=== PATIENT | female | born 1970 | race Caucasian/White ===

== ENCOUNTER 2018-05-27 06:29 | Outpatient (CLI) | payer MEDICAID ==
[~2018-05-27] VITALS: Ht 162.6 cm; Wt 121.1 kg
[2018-05-27] MEDS ORDERED: FLUT9.9S NS (14:11)
[2018-05-27] MEDS ORDERED: ESCI20TA PO (14:11)
[2018-05-27] MEDS ORDERED: METF-397 PO (14:11)
[2018-05-27] MEDS ORDERED: MULT-178 PO (14:11)
[2018-05-27] MEDS ORDERED: QUET100T PO (14:11)
[2018-05-27] MEDS ORDERED: RANI150T46 PO (14:11)
[2018-05-27] MEDS ORDERED: OMEP40CA36 PO (14:11)
[2018-05-27] MEDS ORDERED: BUDE10.2 IH (14:14)
== END 2018-05-27 14:25 | disposition home or self-care (01) ==
LOC: PREOP 06:29
PROVIDERS: ATTEND Orthopaedic Surgery
DX: Z01.818 Encounter for other preprocedural examination (principal)

== ENCOUNTER 2018-05-29 07:38 | Day surgery (SDC) | payer MEDICAID ==
[~2018-05-29] VITALS: Ht 162.6 cm; Wt 120.8 kg
[~2018-05-29 07:38] MED LIST: BUDE10.2 IH; ESCI20TA PO; FLUT9.9S NS; METF-397 PO; MULT-178 PO; OMEP40CA36 PO; QUET100T PO; RANI150T46 PO
[2018-05-29] MEDS ORDERED: BUPIVACAINE 0.25% 30 ML (SENSORCAINE) VIAL ONE ×2 (07:51→08:52)
[2018-05-29] MEDS ORDERED: morphine PF (DURAMORPH) 10 MG/10 ML AMP ONE ×2 (07:51→08:52)
[2018-05-29] MEDS ORDERED: ceFAZolin INJECTION 1,000 MG in WATER (STERILE) FOR INJECTION 10 ML IV ONE (08:00)
[2018-05-29] MEDS: LACTATED RINGERS 1,000 ML IV PRN ×2 (08:09→10:05)
[2018-05-29 08:15] VITALS: BP 132/84
[2018-05-29] MEDS ORDERED: FAMOTIDINE 20MG/2ML IV (PEPCID) ONE (08:17)
[2018-05-29] MEDS ORDERED: ONDANSETRON 4 MG/2 ML (SDV) Z0FRAN ONE (08:27)
[2018-05-29] MEDS ORDERED: proPOfol 200 MG/20 ML (DIPRIVAN) VIAL IV ONE ×2 (08:27→10:33)
[2018-05-29] MEDS ORDERED: LIDOCAINE PF 2% 5 ML (XYLOCAINE) VIAL ONE (08:27)
[2018-05-29] MEDS ORDERED: SEVOFLURANE (ULTANE) 15 ML INHAL SOLN ONE (08:27)
[2018-05-29] MEDS ORDERED: fentaNYL INJECTION 100 MCG/2 ML AMP ONE ×2 (08:28→09:52)
[2018-05-29] MEDS ORDERED: MIDAZOLAM 2 MG/2 ML (VERSED) VIAL ONE (08:28)
[2018-05-29] MEDS ORDERED: FAMOTIDINE 20MG/2ML IV (PEPCID) IV ONE (08:30)
--- OUTSIDE RECORDS SUMMARY | 2018-05-29 08:34 | XMS REPORT ---
Author Author Anuradha Orellana Organization [facility] Address [address] [place], [place] [id number] Care Team Providers Care Customs Director Name Role Phone Anuradha Orellana PCP Anuradha Orellana PreferredProvider Allergies and Adverse Reactions Name Reaction Notes Hydrocodone Compound Plan of Treatment Planned Activity Comments Planned Date Planned Time Plan/Goal left shoulder pain 01/31/2018 8:50 AM LEFT KNEE PAIN 04/15/2018 8:11 AM Pulse oximetry 05/14/2018 12:00 AM Pulse oximetry 05/14/2018 12:00 AM Pulse oximetry 05/14/2018 12:00 AM PFT 05/15/2018 12:00 AM Medications Active Name Start Date Estimated Completion Date SIG Comments Lexapro 20 mg oral tablet take 2 tablets by oral route daily multivitamin with iron oral tablet take 1 tablet by oral route daily escitalopram oxalate 20 mg oral tablet 02/11/2018 ... TAKE 1 TABLET BY MOUTH DAILY ... diclofenac sodium 75 mg oral tablet,delayed release (DR/EC) 03/22/2018 take 1 tablet (75 mg) by oral route 2 times per day for 30 days metformin 500 mg oral tablet extended release 24hr 04/17/2018 07/16/2018 take 1 tablet (500 mg) by oral route once daily with the evening meal for 30 days omeprazole 40 mg oral capsule,delayed release(DR/EC) 05/02/2018 ... TAKE 1 CAPSULE BY MOUTH DAILY ... 90 ranitidine HCl 150 mg oral tablet 05/02/2018 ...TAKE 1 TABLET BY MOUTH ONCE DAILY AT BEDTIME .. Seroquel 100 mg oral tablet 05/02/2018 1 tablet at hs ibuprofen 800 mg oral tablet take 1 tablet (800 mg) by oral route 3 times per day with food Symbicort 160-4.5 mcg/actuation inhalation HFA aerosol inhaler 05/07/2018 3/14 /2019 inhale 1 puffs by inhalation route 4 times per day and then rinse throat Name Start Date Expiration Date SIG Comments Zithromax 250 mg oral tablet 11/28/2017 12/03/2017 take 2 tablets (500 mg) by oral route once daily for 1 day then 1 tablet (250 mg) by oral route once daily for 4 days Zithromax Z-Mendoza 250 mg oral tablet 05/07/2018 05/12/2018 take 2 tablets (500 mg) by oral route once daily for 1 day then 1 tablet (250 mg) by oral route once daily for 4 days Discontinued Name Start Date Discontinued Date SIG Comments Seroquel 200 mg oral tablet 03/07/2018 take 1 tablet by oral route once a day (at bedtime) ranitidine HCl 150 mg oral capsule 12/27/2017 01/17/2018 take 1 capsule (150 mg) by oral route once daily at bedtime for 30 days Belsomra 10 mg oral tablet 03/07/2018 03/25/2018 take 1 tablet (10 mg) by oral route once per night within 30 minutes of bedtime. Take only if at least 7 hrs of bedtime remain before planned time of waking. for 30 days insurance won' t cover it Problem List Description Status Onset Gastroesophageal reflux disease without esophagitis Active 02/04/2018 Depression Active 02/04/2018 Vital Signs Date Time BP-Sys(mm[Hg] BP-Alison(mm[Hg]) HR(bpm) RR(rpm) Temp WT HT HC BMI BSA BMI Percentile O2 Sat(%) 05/14/2018 7:56:00 AM 128 mmHg 84 mmHg 88 bpm 18 rpm 98.1 F 271.25 lbs 64 in 46.5595 kg/m 2.3571 m 96 % 05/07/2018 1:26:00 PM 136 mmHg 84 mmHg 86 bpm 18 rpm 98.2 F 274.25 lbs 64 in 47.07 kg/m2 2.37 m2 92 % 04/08/2018 9:48:00 AM 118 mmHg 80 mmHg 78 bpm 18 rpm 98.1 F 279.125 lbs 64 in 47.9112 kg/m 2.3911 m 95 % 03/27/2018 9:22:00 AM 128 mmHg 72 mmHg 84 bpm 18 rpm 98.4 F 280 lbs 64 in 48.06 kg/m2 2.39 m2 95 % 03/25/2018 3:50:00 PM 124 mmHg 78 mmHg 80 bpm 18 rpm 98.2 F 279.5 lbs 64 in 47.9756 kg/m 2.3927 m 98 % 03/07/2018 9:16:00 AM 132 mmHg 80 mmHg 78 bpm 18 rpm 98.2 F 282.25 lbs 64 in 48.45 kg/m2 2.40 m2 98 % 01/24/2018 8:51:00 AM 122 mmHg 74 mmHg 88 bpm 18 rpm 98.2 F 275 lbs 64 in 47.2032 kg/m 2.3733 m 96 % 01/17/2018 2:05:00 PM 132 mmHg 84 mmHg 82 bpm 18 rpm 98.2 F 276.25 lbs 64 in 47.42 kg/m2 2.38 m2 98 % 11/28/2017 2:14:00 PM 132 mmHg 76 mmHg 86 bpm 18 rpm 98.7 F 269 lbs 64 in 46.1733 kg/m 2.3473 m 98 % Social History Name Description Comments Tobacco Current every day smoker cigerettes Alcohol Never Caffeine 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 every day 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 History of Procedures Date Ordered Description Order Status 11/28/2017 12:00 AM THER/PROPH/DIAG INJ SC/IM Reviewed 11/28/2017 12:00 AM Decadron 4mg Injection Reviewed 11/28/2017 12:00 AM Depo-Medrol 40mg Injection Reviewed 04/08/2018 12:00 AM COMPLETE CBC W/AUTO DIFF WBC Reviewed 04/08/2018 12:00 AM COMPREHEN METABOLIC PANEL Reviewed 04/08/2018 12:00 AM GLYCOSYLATED HEMOGLOBIN TEST Reviewed 04/08/2018 12:00 AM VITAMIN B-12 Reviewed 04/08/2018 12:00 AM ASSAY THYROID STIM HORMONE Reviewed 04/08/2018 12:00 AM ASSAY OF FREE THYROXINE Reviewed 04/08/2018 12:00 AM ASSAY OF IRON Reviewed 04/08/2018 12:00 AM JC-HADLEY ANTIBODY Reviewed 04/08/2018 12:00 AM JC-HADLEY NUCLEAR ANTIGEN Reviewed 04/08/2018 12:00 AM JC-HADLEY CAPSID VCA Reviewed 04/08/2018 12:00 AM ROUTINE VENIPUNCTURE Reviewed Results Summary Date and Description Results 03/07/2018 9:59 AM Falls in last 6 months? No Unsteady or worry about falling ? No Fall Risk Assessment Not At Risk During the past month, have you been feeling depressed? Yes During the past month, have you lost interest in usual activity? Yes 03/26/2018 3:59 PM Falls in last 6 months? No Unsteady or worry about falling? No Fall Risk Assessment Not At Risk During the past month, have you been feeling depressed? Yes During the past month, have you lost interest in usual activity? Yes 03/27/2018 9:23 AM Falls in last 6 months? No Unsteady or worry about falling? No Fall Risk Assessment Not At Risk During the past month, have you been feeling depressed? Yes During the past month, have you lost interest in usual activity? Yes 04/08/2018 10:15 AM WBC 13.6 RBC 5.20 HGB 14.6 HCT 45.9 MCV 88 MCH 28.1 MCHC 31.8 RDW SD 58 RDW CV 17.8 MPV 10.6 PLT 335 NRBC# 0.00 NRBC% 0.0 %NEUT 64.2 % LYMP 27.7 %MONO 5.2 %EOS 1.6 %BASO 0.6 #NEUT 8.73 #LYMP 3.77 #MONO 0.71 #EOS 0.22 #BASO 0.08 MANUAL DIFF NOT IND GLUCOSE 148 SODIUM 136 POTASSIUM 4.7 CHLORIDE 100 CO2 27 BUN 14 CREATININE 0.7 SGOT/AST 20 SGPT/ALT 27 ALK PHOS 92 TOTAL PROTEIN 7.1 ALBUMIN 3.9 TOTAL BILI 0.2 CALCIUM 9.4 AGE 47 GFR NonAA 90 GFR AA 109 eGFR 90 eGFR AA* >60 HGB A1C 6.90 %Est Avg Glucose 151.3 TSH 2.12 VITAMIN B12 388 FREE T4 1.07 IRON TOTAL 72 EBV Ab VCA, IgM <36.0 EBV Early Antigen Ab, IgG 17.6 EBV Ab VCA, IgG >600.0 EBV Nuclear Antigen Ab,IgG 193.0 Interpretation: COMMENT 04/08/2018 12:10 PM Falls in last 6 months? No Unsteady or worry about falling ? No Fall Risk Assessment Not At Risk During the past month, have you been feeling depressed? Yes During the past month, have you lost interest in usual activity? No 05/19/2018 9:39 AM Falls in last 6 months? No Unsteady or worry about falling? No Fall Risk Assessment Not At Risk During the past month, have you been feeling depressed? Yes During the past month, have you lost interest in usual activity? No 05/19/2018 7:44 PM Falls in last 6 months? No Unsteady or worry about falling? No Fall Risk Assessment Not At Risk During the past month, have you been feeling depressed? Yes During the past month, have you lost interest in usual activity? No History Of Immunizations Not available. History of Past Illness Name Date of Onset Comments ADHD Anemia Anxiety and depression arthritis Insomnia Numbness and Tingling HEADACHES Dizziness Gastroesophageal reflux disease without esophagitis 02/04/2018 Depression 02/04/2018 Acute bronchitis, unspecified organism Nov 28 2017 2:18PM Purulent rhinitis Nov 28 2017 2:18PM Pain in left shoulder Jan 17 2018 2:07PM Other chronic pain Jan 17 2018 2:07PM Primary osteoarthritis of left knee Jan 24 2018 8:52AM Knee effusion, left Jan 24 2018 8:52AM Heel spur, right Jan 24 2018 8:52AM Gastroesophageal reflux disease without esophagitis Jan 17 2018 2:07PM Depression Jan 17 2018 2:07PM Primary osteoarthritis of left knee Mar 07 2018 9:18AM Insomnia Mar 07 2018 9:18AM Knee pain, left anterior Mar 07 2018 9:18AM Depression Mar 07 2018 9:18AM Gastroesophageal reflux disease without esophagitis Mar 07 2018 9:18AM Knee effusion, left Mar 25 2018 3:51PM Depression Mar 25 2018 3:51PM Gastroesophageal reflux disease without esophagitis Mar 25 2018 3:51PM Depression Mar 27 2018 9:23AM Gastroesophageal reflux disease without esophagitis Mar 27 2018 9:23AM Insomnia Mar 27 2018 9:23AM Knee effusion, left Mar 27 2018 9:23AM Anemia, unspecified type Apr 08 2018 9:53AM Other fatigue Apr 08 2018 9:53AM Morbid (severe) obesity due to excess calories Apr 08 2018 9:53AM Body mass index (BMI) 45.0-49.9, adult Apr 08 2018 9:53AM Primary osteoarthritis of left knee Apr 08 2018 9:53AM Depression Apr 08 2018 9:53AM Gastroesophageal reflux disease without esophagitis Apr 08 2018 9:53AM Hyperglycemia Apr 08 2018 9:53AM Family history of diabetes mellitus (DM) Apr 08 2018 9:53AM Primary osteoarthritis of left knee May 14 2018 7:57AM Shortness Of Breath May 14 2018 7:57AM Hypoxia May 14 2018 7:57AM Tobacco abuse disorder May 14 2018 7:57AM Depression May 14 2018 7:57AM Gastroesophageal reflux disease without esophagitis May 14 2018 7:57AM Hypoxia May 15 2018 12:41PM Tobacco abuse May 15 2018 12:41PM Allergic asthma May 07 2018 1:27PM Purulent rhinitis May 07 2018 1:27PM Primary osteoarthritis of left knee May 07 2018 1:27PM Payers Insurance Name Company Name Plan Name Plan Number Policy Number Policy Group Number Start Date Aetna Better Health - [facility] Aetna Better [facility] - [facility] [id number] N/A [employer] - [facility] - [place] State Plan [employer] - [facility] [place] State Plan [id number] N/A History of Encounters Visit Date Visit Type Provider 05/14/2018 Office visit 05/14/2018 Office visit Anuradha Orellana DIRECT CARE STAFFER 05/07/2018 Office visit Anuradha Orellana DIRECT CARE STAFFER 04/08/2018 Office visit Anuradha Orellana DIRECT CARE STAFFER 03/27/2018 Office visit Anuradha Orellana DIRECT CARE STAFFER 03/25/2018 Office visit Anuradha Orellana DIRECT CARE STAFFER 03/07/2018 Office visit 03/07/2018 Office visit Anuradha Orellana DIRECT CARE STAFFER 01/24/2018 Office visit Anuradha Orellana DIRECT CARE STAFFER 01/17/2018 Office visit Anuradha Orellana DIRECT CARE STAFFER 11/28/2017 Office visit Anuradha Orellana DIRECT CARE STAFFER
--- OUTSIDE RECORDS SUMMARY | 2018-05-29 08:34 | XMS REPORT ---
Author Author Anuradha Orellana Organization [facility] Address [address] [place], [place] [id number] Care Team Providers Care Bakery Machine Mechanic Supervisor Name Role Phone Anuradha Orellana PCP Anuradha Orellana PreferredProvider Allergies and Adverse Reactions Name Reaction Notes Hydrocodone Compound Plan of Treatment Planned Activity Comments Planned Date Planned Time Plan/Goal left shoulder pain 01/31/2018 8:50 AM LEFT KNEE PAIN 04/15/2018 8:11 AM Pulse oximetry 05/14/2018 12:00 AM Pulse oximetry 05/14/2018 12:00 AM Pulse oximetry 05/14/2018 12:00 AM Medications Active Name Start Date [...] Symbicort 160-4.5 mcg/actuation inhalation HFA aerosol inhaler 05/07/201806/06 inhale 1 puffs by inhalation route 4 [...] Reviewed 04/08/2018 12:00 AM ROUTINE VENIPUNCTURE Reviewed 05/15/2018 12:00 AM BREATHING CAPACITY TEST Reviewed Results Summary Date and Description Results [...] Number Start Date Aetna Better Health - [facility] Aetna Better [facility] - [facility] [id number] N/A [employer] - [facility] - [place] State Plan [employer] - [facility] [place] State Plan [id number] N/A History of Encounters Visit Date Visit Type Provider 05/14/2018 Office visit 05/14/2018 Office visit Anuradha Orellana OPTICAL LABORATORY MANAGER 05/07/2018 Office visit Anuradha Orellana OPTICAL LABORATORY MANAGER 04/08/2018 Office visit Anuradha Orellana OPTICAL LABORATORY MANAGER 03/27/2018 Office visit Anuradha Orellana OPTICAL LABORATORY MANAGER 03/25/2018 Office visit Anuradha Orellana OPTICAL LABORATORY MANAGER 03/07/2018 Office visit 03/07/2018 Office visit Anuradha Orellana OPTICAL LABORATORY MANAGER 01/24/2018 Office visit Anuradha Orellana OPTICAL LABORATORY MANAGER 01/17/2018 Office visit Anuradha Orellana OPTICAL LABORATORY MANAGER 11/28/2017 Office visit Anuradha Orellana OPTICAL LABORATORY MANAGER
--- OUTSIDE RECORDS SUMMARY | 2018-05-29 08:35 | XMS REPORT ---
Author Author Anuradha Orellana Organization [facility] Address [address] [place], [place] [id number] Care Team Providers Care Cdl Company Driver Name Role Phone Anuradha Orellana PCP Anuradha Orellana PreferredProvider Allergies and Adverse Reactions Name Reaction Notes Hydrocodone Compound Plan of Treatment Planned Activity Comments Planned Date Planned Time Plan/Goal left shoulder pain 01/31/2018 8:50 AM LEFT KNEE PAIN 04/15/2018 8:11 AM Medications Active Name Start Date Estimated Completion Date SIG Comments Lexapro 20 mg oral tablet take 2 tablets by oral route daily omeprazole 40 mg oral capsule,delayed release(DR/EC) take 1 capsule (40 mg) by oral route once daily before a meal multivitamin with iron oral tablet take 1 tablet by oral route daily ranitidine HCl 150 mg oral tablet 01/14/2018 ...TAKE 1 TABLET BY MOUTH ONCE DAILY AT BEDTIME .. escitalopram oxalate 20 mg oral tablet 02/11/2018 ... TAKE 1 TABLET BY MOUTH DAILY ... diclofenac sodium 75 mg oral tablet,delayed release (DR/EC) 03/22/2018 take 1 tablet (75 mg) by oral route 2 times per day for 30 days Seroquel 100 mg oral tablet 04/15/2018 05/15/2018 1 tablet at hs metformin 500 mg oral tablet extended release 24hr 04/17/2018 07/16/2018 take 1 tablet (500 mg) by oral route once daily with the evening meal for 30 days Name Start Date Expiration Date SIG Comments [...] HC BMI BSA BMI Percentile O2 Sat(%) 04/08/2018 9:48:00 AM 118 mmHg 80 mmHg [...] eGFR 90 eGFR AA* >60 HGB A1C 6.9 Est Avg Glucose 151.3 TSH 2.12 VITAMIN B12 [...] diabetes mellitus (DM) Apr 08 2018 9:53AM Payers Insurance Name Company Name Plan Name Plan Number Policy Number Policy Group Number [facility] Date [facility] [id number] N/A [facility] [place] [facility] [place] [id number] N/A History of Encounters Visit Date Visit Type Provider 04/08/2018 Office visit Anuradha Orellana APRN 03/27/2018 Office visit Anuradha Orellana AND RESCUE FIRE FIGHTER CRASH FIRE 03/25/2018 Office visit Anuradha Orellana AND RESCUE FIRE FIGHTER CRASH FIRE 03/07/2018 Office visit 03/07/2018 Office visit Anuradha Orellana AND RESCUE FIRE FIGHTER CRASH FIRE 01/24/2018 Office visit Anuradha Orellana APRN 01/17/2018 Office visit Anuradha Orellana AND RESCUE FIRE FIGHTER CRASH FIRE 11/28/2017 Office visit Anuradha Orellana AND RESCUE FIRE FIGHTER CRASH FIRE
--- OUTSIDE RECORDS SUMMARY | 2018-05-29 08:35 | XMS REPORT ---
Author Author Anuradha Orellana Organization [facility] Address [address] [place], [place] [address] Care Team Providers Care Policyholder Information Clerk Name Role Phone Anuradha Orellana PCP Anuradha [...] Number Start Date Aetna Better Health - [facility] A[employer]na Better Health - [facility] [id number] N/A [employer] - [facility] - [place] State [place] [employer] - [facility] [place] State [place] [id number] N/A History of Encounters Visit Date Visit Type Provider 05/14/2018 Office visit 05/14/2018 Office visit Anuradha Orellana CIVIL GEOTECHNICAL ENGINEER 05/07/2018 Office visit Anuradha Orellana CIVIL GEOTECHNICAL ENGINEER 04/08/2018 Office visit Anuradha Orellana CIVIL GEOTECHNICAL ENGINEER 03/27/2018 Office visit Anuradha Orellana CIVIL GEOTECHNICAL ENGINEER 03/25/2018 Office visit Anuradha Orellana CIVIL GEOTECHNICAL ENGINEER 03/07/2018 Office visit 03/07/2018 Office visit Anuradha Orellana CIVIL GEOTECHNICAL ENGINEER 01/24/2018 Office visit Anuradha Orellana CIVIL GEOTECHNICAL ENGINEER 01/17/2018 Office visit Anuradha Orellana CIVIL GEOTECHNICAL ENGINEER 11/28/2017 Office visit Anuradha Orellana CIVIL GEOTECHNICAL ENGINEER
--- OUTSIDE RECORDS SUMMARY | 2018-05-29 08:35 | XMS REPORT ---
Author Author Anuradha Orellana Organization [facility] Address [address] [place], [place] [address] Care Team Providers Care Student Services Director Name Role Phone Anuradha Orellana PCP Anuradha Orellana PreferredProvider Allergies and Adverse Reactions Name Reaction Notes Hydrocodone Compound Plan of Treatment Planned Activity Comments Planned Date Planned Time Plan/Goal left shoulder pain 01/31/2018 8:50 AM LEFT KNEE PAIN 04/15/2018 8:11 AM PFT 05/15/2018 12:00 AM Pulse oximetry 05/14/2018 12:00 AM [...] Number Start Date Aetna Better Health - [facility] Aetna Better [facility] - [facility] [id number] N/A [employer] - [facility] - [place] State [place] [employer] - [facility] [place] State Plan [id number] N/A History of Encounters Visit Date Visit Type Provider 05/14/2018 Office visit 05/14/2018 Office visit Anuradha Orellana SALES ENABLEMENT CONSULTANT 05/07/2018 Office visit Anuradha Orellana SALES ENABLEMENT CONSULTANT 04/08/2018 Office visit Anuradha Orellana SALES ENABLEMENT CONSULTANT 03/27/2018 Office visit Anuradha Orellana SALES ENABLEMENT CONSULTANT 03/25/2018 Office visit Anuradha Orellana SALES ENABLEMENT CONSULTANT 03/07/2018 Office visit 03/07/2018 Office visit Anuradha Orellana SALES ENABLEMENT CONSULTANT 01/24/2018 Office visit Anuradha Orellana SALES ENABLEMENT CONSULTANT 01/17/2018 Office visit Anuradha Orellana SALES ENABLEMENT CONSULTANT 11/28/2017 Office visit Anuradha Orellana SALES ENABLEMENT CONSULTANT
--- OUTSIDE RECORDS SUMMARY | 2018-05-29 08:36 | XMS REPORT ---
Author Author Anuradha Orellana Organization [facility] Address [address] [place], [place] [id number] Care Team Providers Care Corporate Sales Trainer Name Role Phone Anuradha Orellana PCP Anuradha Orellana PreferredProvider Allergies and Adverse Reactions Name Reaction Notes Hydrocodone Compound Plan of Treatment Planned Activity Comments Planned Date Planned Time Plan/Goal left shoulder pain 01/31/2018 8:50 AM Medications Active Name Start Date Estimated [...] 30 days Seroquel 100 mg oral tablet 03/27/2018 04/26/2018 1 tablet at hs Name Start Date Expiration Date SIG Comments [...] HC BMI BSA BMI Percentile O2 Sat(%) 03/27/2018 9:22:00 AM 128 mmHg 72 mmHg 84 bpm 18 rpm 98.4 F 280 lbs 64 in 48.0614 kg/m 2.3948 m 95 % 03/25/2018 3:50:00 PM 124 mmHg 78 mmHg 80 bpm 18 rpm 98.2 F 279.5 lbs 64 in 47.98 kg/m2 2.39 m2 98 % 03/07/2018 9:16:00 AM 132 mmHg [...] 11/28/2017 12:00 AM Depo-Medrol 40mg Injection Reviewed Results Summary Date and Description Results [...] you lost interest in usual activity? Yes History Of Immunizations Not available. History of [...] Knee effusion, left Mar 27 2018 9:23AM Payers Insurance Name Company Name Plan Name Plan Number Policy Number Policy Group Number Start Date [facility] [place] State Plan [facility] [place] State [place] [id number] N/A History of Encounters Visit Date Visit Type Provider 03/27/2018 Office visit Anuradha Orellana APRN 03/25/2018 Office visit Anuradha Orellana WELDING PANTOGRAPH MACHINE OPERATOR 03/07/2018 Office visit 03/07/2018 Office visit Anuradha Orellana WELDING PANTOGRAPH MACHINE OPERATOR 01/24/2018 Office visit Anuradha Orellana WELDING PANTOGRAPH MACHINE OPERATOR 01/17/2018 Office visit Anuradha Orellana WELDING PANTOGRAPH MACHINE OPERATOR 11/28/2017 Office visit Anuradha Orellana WELDING PANTOGRAPH MACHINE OPERATOR
--- OUTSIDE RECORDS SUMMARY | 2018-05-29 08:36 | XMS REPORT ---
Author Author Anuradha Orellana Organization [facility] Address [address] [place], [place] [address] Care Team Providers Care Adaptive Physical Education Specialist Name Role Phone Anuradha Orellana PCP Anuradha [...] tablet 04/15/2018 05/15/2018 1 tablet at hs Name Start Date [...] Number Policy Group Number Start Date Aetna [facility] Aetna [facility] - [facility] [id number] N/A [facility] State Plan [id number] N/A History of Encounters Visit Date Visit Type Provider 04/08/2018 Office visit Anuradha Orellana DIE CAST SUPERVISOR 03/27/2018 Office visit Anuradha Orellana DIE CAST SUPERVISOR 03/25/2018 Office visit Anuradha Orellana DIE CAST SUPERVISOR 03/07/2018 Office visit 03/07/2018 Office visit Anuradha Orellana DIE CAST SUPERVISOR 01/24/2018 Office visit Anuradha Orellana DIE CAST SUPERVISOR 01/17/2018 Office visit Anuradha Orellana DIE CAST SUPERVISOR 11/28/2017 Office visit Anuradha Orellana DIE CAST SUPERVISOR
--- OUTSIDE RECORDS SUMMARY | 2018-05-29 08:36 | XMS REPORT ---
Author Author Anuradha Orellana Organization [facility] Address [address] [place], [place] [address] Care Team Providers Care Customs Director Name Role Phone Anuradha Orellana PCP Anuradha Orellana PreferredProvider Allergies and Adverse Reactions Name Reaction Notes Hydrocodone Compound Plan of Treatment Planned Activity Comments Planned Date Planned Time Plan/Goal left shoulder pain 01/31/2018 8:50 AM CBC With Auto Differential 04/08/2018 12:00 AM Comprehensive metabolic panel 04/08/2018 12:00 AM HEMOGLOBIN A1C 04/08/2018 12:00 AM Vitamin B12 04/08/2018 12:00 AM TSH 04/08/2018 12:00 AM T4, Free 04/08/2018 12:00 AM Total iron measurement 04/08/2018 12:00 AM EBV PROFILE 04/08/2018 12:00 AM EBV PROFILE 04/08/2018 12:00 AM EBV PROFILE 04/08/2018 12:00 AM Medications Active Name Start Date [...] Depo-Medrol 40mg Injection Reviewed 04/08/2018 12:00 AM ROUTINE VENIPUNCTURE Reviewed [...] lost interest in usual activity? Yes 04/08/2018 12:10 PM Falls in last 6 [...] Policy Number Policy Group Number [facility] Date [facility] [id number] N/[facility] State Plan [facility] State [facility] [id number] N/A History of Encounters Visit Date Visit Type Provider 04/08/2018 Office visit Anuradha Orellana DIRECTOR OF SPECIAL SERVICES 03/27/2018 Office visit Anuradha Orellana DIRECTOR OF SPECIAL SERVICES 03/25/2018 Office visit Anuradha Orellana DIRECTOR OF SPECIAL SERVICES 03/07/2018 Office visit 03/07/2018 Office visit Anuradha Orellana DIRECTOR OF SPECIAL SERVICES 01/24/2018 Office visit Anuradha Orellana DIRECTOR OF SPECIAL SERVICES 01/17/2018 Office visit Anuradha Orellana DIRECTOR OF SPECIAL SERVICES 11/28/2017 Office visit Anuradha Orellana DIRECTOR OF SPECIAL SERVICES
--- OUTSIDE RECORDS SUMMARY | 2018-05-29 08:36 | XMS REPORT ---
Author Author Anuradha Orellana Organization [facility] Address [address] [place], [place] [address] Care Team Providers Care Applications Support Specialist Name Role Phone Anuradha Orellana PCP [...] 2 times per day for 30 days Name Start Date Expiration [...] HC BMI BSA BMI Percentile O2 Sat(%) 03/25/2018 3:50:00 PM 124 mmHg 78 mmHg [...] disease without esophagitis Mar 25 2018 3:51PM Payers Insurance Name Company Name Plan Name Plan Number Policy Number Policy Group Number Start Date [facility] [place] State Plan [facility] [place] Plan [id number] N/A History of Encounters Visit Date Visit Type Provider 03/25/2018 Office visit Anuradha Orellana APRN 03/07/2018 Office visit 03/07/2018 Office visit Anuradha Orellana APRN 01/24/2018 Office visit Anuradha Orellana APRN 01/17/2018 Office visit Anuradha Orellana APRN 11/28/2017 Office visit Anuradha Orellana APRN
--- OUTSIDE RECORDS SUMMARY | 2018-05-29 08:37 | XMS REPORT ---
Author Author SABINA BAJWA Organization [employer] Address Unknown Phone Unavailable Care Team Providers Care Ep Specialist Name Role Phone SABINA ABJWA CP Unavailable Allergies, Adverse Reactions, Alerts Substance Reaction Event Type Hydrocodone itching Non Drug Allergy Problems Problem Type Condition Code Onset Dates Condition Status Problem Lateral epicondylitis of elbow 726.32 Active Assessment Low back strain 847.2 Active Problem Family history of diabetes mellitus V18.0 Active Problem Headache 784.0 Active Problem Urinary tract infection 599.0 Active Problem Unspecified otitis media 382.9 Active Problem Acute pharyngitis 462 Active Problem Pain in joint, shoulder region 719.41 Active Problem Urinary tract infection, site not specified 599.0 Active Medications Medication Code System Code Instructions Start Date End Date Status Dosage Prilosec [facility] [address]-44 40 MG Orally Apr 04, 2014 take 1 capsule (20 mg) by oral route once daily before a meal for 56 days Ibuprofen [facility] [address]-01 800 MG Orally Three times a day Oct 24, 2014 Nov 23, 2014 1 tablet Lexapro [facility] [address]-01 20 MG Apr 04, 2014 take 1 1/2 tablet ( 20 mg) by oral route once daily doxepin [facility] 0 10 mg Apr 04, 2014 take 2 capsules by Oral route 1 time per day Cyclobenzaprine HCl [facility] [address]-85 10 MG Orally Three times a day as needed Oct 24, 2014 1 tablet Ibuprofen [facility] [address]-91 800 MG Orally 2 times a day as needed May 12, 2014 Nov 05, 2014 1 tablet Procedures Procedure Coding System Code Date Office Visit, Est Pt., Level 3 CPT-4 23020 Oct 24, 2014 Vital Signs Date/Time: Oct 24, 2014 Temperature 97.5 F Weight 230.4 lbs Height 63.5 in BMI 40.17 Index Blood Pressure Diastolic 68 mmHg Blood Pressure Systolic 120 mmHg Cardiac Monitoring Heart Rate 85 bpm Results No Known Results Summary Purpose eClinicalWorks Submission
--- OUTSIDE RECORDS SUMMARY | 2018-05-29 08:37 | XMS REPORT ---
Author Author Anuradha Orellana Organization [facility] Address [address] [place], [place] [address] Care Team Providers Care Engineer Automated Equipment Name Role Phone Anuradha Orellana PCP Anuradha Orellana PreferredProvider Allergies and Adverse Reactions Name Reaction Notes Hydrocodone Compound Plan of Treatment Not available. Medications Active Name Start Date Estimated Completion Date SIG Comments Lexapro 20 mg oral tablet take 2 tablets by oral route daily Seroquel 200 mg oral tablet take 1 tablet by oral route once a day (at bedtime) omeprazole 40 mg oral capsule,delayed release(DR/EC) take 1 capsule (40 mg) by oral route once daily before a meal multivitamin with iron oral tablet take 1 tablet by oral route daily ranitidine HCl 150 mg oral capsule 12/27/2017 take 1 capsule (150 mg) by oral route once daily at bedtime for 30 days Name Start Date Expiration Date SIG Comments Zithromax 250 mg oral tablet 11/28/2017 12/03/2017 take 2 tablets (500 mg) by oral route once daily for 1 day then 1 tablet (250 mg) by oral route once daily for 4 days Problem List Not available. Vital Signs Date Time BP-Sys(mm[Hg] BP-Alison(mm[Hg]) HR(bpm) RR(rpm) Temp WT HT HC BMI BSA BMI Percentile O2 Sat(%) 11/28/2017 2:14:00 PM 132 mmHg 76 mmHg [...] AM Depo-Medrol 40mg Injection Reviewed Results Summary Not available. History Of Immunizations Not available. History of Past Illness Name Date of Onset Comments ADHD Anemia Anxiety and depression arthritis Insomnia Numbness and Tingling HEADACHES Dizziness Acute bronchitis, unspecified organism Nov 28 2017 2:18PM Purulent rhinitis Nov 28 2017 2:18PM Payers Insurance Name Company Name Plan Name Plan Number Policy Number Policy Group Number Start Date [facility] - [place] State Plan [facility] State Plan [id number] N/A History of Encounters Visit Date Visit Type Provider 11/28/2017 Office visit Anuradha Orellana APRN
--- OUTSIDE RECORDS SUMMARY | 2018-05-29 08:37 | XMS REPORT ---
Author Author LISA WILLAMS [facility] e[employer] Address Unknown Phone Unavailable Care Team Providers Care Senior Facilities Manager Name Role Phone LISA WILLAMS CP Unavailable Allergies, Adverse Reactions, Alerts Substance Reaction Event Type Hydrocodone itching Non Drug Allergy Problems Problem Type Condition ICD-9 Code Onset Dates Condition Status Problem Lateral epicondylitis of elbow 726.32 Active Assessment Sciatica neuralgia 724.3 Active Problem Family history of diabetes mellitus V18.0 Active Problem Headache 784.0 Active Problem Urinary tract infection 599.0 Active Problem Unspecified otitis media 382.9 Active Problem Acute pharyngitis 462 Active Problem Pain in joint, shoulder region 719.41 Active Problem Urinary tract infection, site not specified 599.0 Active Medications Medication Code System Code Instructions Start Date End Date Status Dosage Cyclobenzaprine HCl [facility] [address]-63 10 MG Orally Three times a day as needed Oct 24, 2014 1 tablet doxepin [facility] 0 75 mg Once a day at night Apr 04, 2014 1 capsule Prilosec [facility] [address]-27 40 MG Orally Apr 04, 2014 take 1 capsule (20 mg) by oral route once daily before a meal for 56 days Ibuprofen [facility] [address]-41 800 MG Orally Three times a day Oct 24, 2014 Nov 23, 2014 1 tablet Lexapro [facility] [address]-55 30 mg Orally Once a day Apr 04, 2014 take 1 1/2 tablet (20 mg) by oral route once daily PredniSONE [facility] [address]-15 20 MG Orally Once a day Nov 10, 2014 3 tablet with food or milk for 3 days, then 2 tabs daily for 3 days, then one tablet for 3 days Procedures Procedure Coding System Code Date Office Visit, Est Pt., Level 3 CPT-4 05823 Nov 10, 2014 Vital Signs Date/Time: Nov 10, 2014 Temperature 97.8 F Weight 229.3 lbs Height 63.5 in BMI 39.98 Index Blood Pressure Diastolic 68 mmHg Blood Pressure Systolic 118 mmHg Cardiac Monitoring Heart Rate 89 bpm Results No Known Results Summary Purpose eClinicalWorks Submission
--- OUTSIDE RECORDS SUMMARY | 2018-05-29 08:37 | XMS REPORT ---
Author Author Anuradha Orellana Organization [facility] Address [address] [place], [place] [address] Care Team Providers Care Health Inspector Food Name Role Phone Anuradha Orellana PCP Anuradha [...] BY MOUTH ONCE DAILY AT BEDTIME .. diclofenac sodium 75 mg oral tablet,delayed release (DR/EC) 01/24/20182017 take 1 tablet (75 mg) by oral route 2 times per day for 30 days escitalopram oxalate 20 mg oral tablet 02/11/2018 ... TAKE 1 TABLET BY MOUTH DAILY ... Belsomra 10 mg oral tablet 03/07/2018 04/06/2018 take 1 tablet (10 mg) by oral route once per night within 30 minutes of bedtime. Take only if at least 7 hrs of bedtime remain before planned time of waking. for 30 days Name Start Date Expiration [...] once daily at bedtime for 30 days Problem List Description Status Onset Gastroesophageal reflux disease without esophagitis Active 02/04/2018 Depression Active 02/04/2018 Vital Signs Date Time BP-Sys(mm[Hg] BP-Alison(mm[Hg]) HR(bpm) RR(rpm) Temp WT HT HC BMI BSA BMI Percentile O2 Sat(%) 03/07/2018 9:16:00 AM 132 mmHg 80 mmHg 78 bpm 18 rpm 98.2 F 282.25 lbs 64 in 48.4476 kg/m 2.4044 m 98 % 01/24/2018 8:51:00 AM 122 mmHg 74 mmHg 88 bpm 18 rpm 98.2 F 275 lbs 64 in 47.20 kg/m2 2.37 m2 96 % 01/17/2018 2:05:00 PM 132 mmHg 84 mmHg 82 bpm 18 rpm 98.2 F 276.25 lbs 64 in 47.4177 kg/m 2.3787 m 98 % 11/28/2017 2:14:00 PM 132 mmHg 76 mmHg 86 bpm 18 rpm 98.7 F 269 lbs 64 in 46.1733 kg/m 2.35 m2 98 % Social History Name Description Comments [...] disease without esophagitis Mar 07 2018 9:18AM Payers Insurance Name Company Name Plan Name Plan Number Policy Number Policy Group Number Start Date [facility] - [place] State Plan [facility] [place] State Plan [id number] N/A History of Encounters Visit Date Visit Type Provider 03/07/2018 Office visit 03/07/2018 Office visit Anuradha Orellana APRN 01/24/2018 Office visit Anuradha Orellana APRN 01/17/2018 Office visit Anuradha Orellana APRN 11/28/2017 Office visit Anuradha Orellana APRN
--- OUTSIDE RECORDS SUMMARY | 2018-05-29 08:37 | XMS REPORT ---
Author Author Anuradha Orellana Organization [facility] Address [address] [place], [place] [address] Care Team Providers Care Test And Balance Engineer Name Role Phone Anuradha Orellana PCP Anuradha [...] Policy Number Policy Group Number Start Date [facility] [place] State Plan [facility] [place] State Plan [id number] N/A History of Encounters Visit Date Visit Type Provider 03/07/2018 Office visit 03/07/2018 Office visit Anuradha Orellana APRN 01/24/2018 Office visit Anuradha Orellana APRN 01/17/2018 Office visit Anuradha Orellana APRN 11/28/2017 Office visit Anuradha Orellana APRN
--- OUTSIDE RECORDS SUMMARY | 2018-05-29 08:37 | XMS REPORT ---
Author Author Anuradha Orellana Organization [facility] Address [address] [place], [place] [address] Care Team Providers Care Roller Helper Name Role Phone Anuradha Orellana PCP Anuradha [...] F 276.25 lbs 64 in 47.42 kg/m2 2.3787 m 98 % 11/28/2017 2:14:00 PM 132 mmHg 76 mmHg 86 bpm 18 rpm 98.7 F 269 lbs 64 in 46.17 kg/m2 2.35 m2 98 % Social History Name [...] Policy Number Policy Group Number Start Date [facility] [place] State Plan [facility] [place] State Plan [id number] N/A History of Encounters Visit Date Visit Type Provider 03/07/2018 Office visit 03/07/2018 Office visit Anuradha Orellana APRN 01/24/2018 Office visit Anuradha Orellana APRN 01/17/2018 Office visit Anuradha Orellana APRN 11/28/2017 Office visit Anuradha Orellana APRN
--- OUTSIDE RECORDS SUMMARY | 2018-05-29 08:37 | XMS REPORT ---
Author TIERNEY Fiore [facility] e[employer] Address Unknown Phone Unavailable Care Team Providers Care Waste Water Plant Operator Name Role Phone TIERNEY HODGE CP Unavailable Allergies, Adverse Reactions, Alerts Substance Reaction Event Type Hydrocodone itching Non Drug Allergy Problems Problem Type Condition Code Onset Dates Condition Status Assessment Inflamed skin tag L91.8 Active Medications Medication Code System Code Instructions Start Date End Date Status Dosage Prilosec [facility] [address]-38 40 MG Orally Apr 04, 2014 take 1 capsule (20 mg) by oral route once daily before a meal for 56 days Lexapro [facility] [address]-80 30 mg Orally Once a day Apr 04, 2014 take 1 1/2 tablet (20 mg) by oral route once daily Seroquel [facility] [address]-52 100 MG Orally Once a day not defined Procedures Procedure Coding System Code Date Office Visit, Est Pt., Level 3 CPT-4 68141 Jan 14, 2015 Vital Signs Date/Time: Jan 14, 2015 Temperature 97.4 F Weight 226.9 lbs Height 63.5 in BMI 39.56 Index Blood Pressure Diastolic 84 mmHg Blood Pressure Systolic 124 mmHg Cardiac Monitoring Heart Rate 77 bpm Results No Known Results Summary Purpose eClinicalWorks Submission
--- OUTSIDE RECORDS SUMMARY | 2018-05-29 08:38 | XMS REPORT ---
Author Author TIERNEY HODGE [facility] Address [address] [place] [address] Care Team Providers Care Field Staff Name Role Phone TIERNEY HODGE Unavailable PROBLEMS Type Condition ICD9-CM Code [id number] Code Onset Dates Condition Status SNOMED Code Problem Sciatica, left side M54.32 Active 23972722 Problem Morbid (severe) obesity due to excess calories E66.01 Active 000126377 Problem Metabolic syndrome E88.81 Active 632838565 Problem Hypertriglyceridemia E78.1 Active 495481570 Problem Plantar neuroma of right foot G57.61 Active 092802030 Problem Sleep disturbance G47.9 Active 90427254 Problem Anxiety associated with depression F41.8 Active 609939376 Problem Anxiety associated with depression 300.4 Active 732531815 Problem Other chronic pain G89.29 Active 00231768 ALLERGIES Substance Reaction Event Type Date Status Hydrocodone-Acetaminophen itching Drug Allergy Jun, Active Hydrocodone itching Non Drug Allergy Jun, Active ENCOUNTERS Encounter Location Date Diagnosis [address] [id number], [place] [id number] July, Sleep disturbance G47.9 ; Pain in left shoulder M25.512 ; Other chronic pain G89.29 and Left elbow pain M25.522 [facility] [address] [facility] [id number] [place] [address] July, [address] [id number] [id number] 11 Jul, 2017 Well woman exam with routine gynecological exam Z01.419 ; Breast cancer screening Z12.31 and BMI 40.0-44.9, adult Z68.[address] [id number] [id number] Jun, Pain in right knee M25.561 ; Pain in left knee M25.562 ; Other chronic pain G89.29 ; Hypertriglyceridemia E78.1 ; Pain in right elbow M25.521 ; Pain in left elbow M25.522 and Family history of diabetes mellitus Z83.3 [facility] [address] [id number] [id number] Jun, Pain in right knee M25.561 ; Pain in left knee M25.562 ; Other chronic pain G89.29 ; Pain in right elbow M25.521 ; Pain in left elbow M25.522 ; Hypertriglyceridemia E78.1 and Family history of diabetes mellitus Z83.3 [facility] [address] [id number], [place] [id number] Apr, [facility] [address] [id number], [place] [id number] Apr, Pain in right knee M25.561 and Other chronic pain G89.29 [facility] [address] [id number], [place] [id number] Apr, Weight gain R63.5 [facility] [address] [id number], [place] [id number] Mar, Weight gain R63.5 ; Exercise counseling Z71.82 and BMI 40.0-44.9, adult Z68.41 [facility] [address] [id number], [place] [id number] Feb, Strep pharyngitis J02.0 [facility] Holding[address] [id number], [place] [id number] Jan, [facility] [address] [id number], [place] [id number] Jan, Anxiety associated with depression 300.4 [facility]rinkTheWeb[address] [id number], [place] [address] Jan, BMI 40.0-44.9, adult Z68.41 ; Acute pain of right knee M25.561 ; Right foot pain M79.671 and Plantar neuroma of right foot G57.61 [facility] [address] [id number] [place] [id number] Jan, Dental examination Z01.20 [facility] [address] [id number], [place] [id number] Dec, Anxiety associated with depression 300.4 [facility] [address] [id number], [place] [id number] Dec, Anxiety associated with depression F41.8 ; Morbid (severe) obesity due to excess calories E66.01 and Sleep disturbance G47.9 [facility] [address] [id number], [place] [id number] Dec, Anxiety associated with depression F41.8 and Sleep disturbance G47.9 [facility] [address] [id number], [place] [id number] Dec, [facility] [address] [id number], [place] [id number] Dec, Sleep disturbance G47.9 [facility] [address] [id number], [place] [id number] Nov, [facility] [address] [id number], [place] [id number] Nov, Morbid (severe) obesity due to excess calories E66.01 ; Sleep disturbance G47.9 ; Anxiety associated with depression F41.8 ; Pain in right knee M25.561 and Other chronic pain G89.29 [facility] [address] [id number], [place] [id number] 13 Nov, 2016 [facility] [address] [id number], [place] [id number] Nov, 2016 [facility] [address] [id number], [place] [id number] Oct, Dental examination Z01.20 [facility] [address] [id number], [place] [id number] Oct, Dental examination Z01.20 [facility] [address] [facility] [id number] [place] [address] Sep, [facility] [address] [id number], [place] [id number] Sep, Morbid (severe) obesity due to excess calories E66.01 ; Dietary counseling Z71.3 and Weight gain finding R63.5 [facility] [address] [id number], [place] [id number] Aug, [facility] [address] [id number], [place] [id number] Aug, Metabolic syndrome E88.81 ; Morbid (severe) obesity due to excess calories E66.01 and Anxiety associated with depression F41.8 [facility] [address] [id number], [place] [id number] Aug, [facility] [address] [id number], [place] [id number] Aug, Eustachian tube dysfunction, right H69.81 and Right acute serous otitis media, recurrence not specified H65.01 [facility] [address] [id number], [place] [id number] Jun, Sciatica, left side M54.32 [facility] [address] [id number], [place] [id number] Jun, [facility] [address] [id number], [place] [id number] Apr, [facility] [address] [id number], [place] [id number] Apr, [facility] [address] [id number], [place] [id number] Apr, Acute non-recurrent maxillary sinusitis J01.00 [facility] [address] [id number], [place] [id number] Apr, Acute non-recurrent maxillary sinusitis J01.[address] [facility] [address] [id number], [place] [id number] Mar, Sore throat J02.[address] [facility] [address] [id number], [place] [id number] Feb, Quadriceps tendonitis M76.899 [facility] [address] [id number], [place] [id number] Feb, Abscess, abdomen K65.1 and Quadriceps tendonitis M76.[address] [facility] [address] [id number], [place] [id number] Dec, Inflamed skin tag L91.[address] [facility] [address] [id number], [place] [id number] Oct, Sciatica neuralgia 724.3 [facility] [address] [id number], [place] [id number] Oct, Low back strain 847.2 [facility] [place] [address] [facility] [id number][place] [id number] Sep, [facility] [address] [id number], [place] [id number] Aug, Urinary tract infection 599.0 [facility] [address] [id number] [address] Jun, [facility] [address] [id number], [place] [address] Jun, [facility] [address] [id number], [place] [address] Apr, [facility] [address]00565100[place], [place] [address] Apr, [facility] [address] [id number], [place] [address] Mar, [facility] [address] [id number], [place] [address] Mar, [facility] [address] [facility] [id number] [place] [address] Oct, [facility] [address] [id number] [place] [id number] Jun, [facility] [address] [id number] [place] [id number] May, [facility] [address] [id number], [place] [id number] May, [facility] [address] [id number], [place] [phone] Mar, IMMUNIZATIONS No Known Immunizations SOCIAL HISTORY Never Assessed REASON FOR VISIT Bilaterally knee pain has had injection in right knee and wants to know about injection in left knee. Would like referral to someone for knees. Jessie boyd PLAN OF CARE Activity Details Follow Up pending labs Reason: VITAL SIGNS Height 64.5 in 2017-07-06 Weight 262.8 lbs 2017-07-06 Temperature 98.4 degrees Fahrenheit 2017-07-06 Heart Rate 80 bpm 2017-07-06 Respiratory Rate 18 2017-07-06 BMI 44.41 kg/m2 2017-07-06 Blood pressure systolic 120 mmHg 2017-07-06 Blood pressure diastolic 60 mmHg 2017-07-06 MEDICATIONS Medication Instructions Dosage Frequency Start Date End Date Duration Status Seroquel 200 mg Orally Once a day 1 tablet at bedtime 24h Active Prilosec 20 mg Orally Once a day 1 capsule 24h 90 days Active Lexapro 20 mg Orally Once a day 1 tablets 24h Active RESULTS No Results PROCEDURES No Known procedures INSTRUCTIONS MEDICATIONS ADMINISTERED No Known Medications MEDICAL (GENERAL) HISTORY Type Description Date Medical History hx of kidney stones and uti Medical History migraine headaches Medical History heartburn Medical History depression Medical History anxiety Medical History insomnia Medical History Left foot, Sprain Medical History Lipids 04/2016 Medical History Knee pain- Xrays 2016- Normal Surgical History tonsillectomy and adenoidectomy Surgical History tubal ligation Surgical History tonsillectomy Surgical History lithotripsy Surgical History wisdom teeth extraction Surgical History appendectomy Surgical History bilat foot surgery Surgical History appendectomy Surgical History foot arch surgeris X4 Surgical History right knee arthroscopy 07/2017 Hospitalization History appendicitis- [facility] Hospitalization History ER visit for shoulder pain 03/2016 Hospitalization History [facility] ER for lower back pain 01/2017
--- OUTSIDE RECORDS SUMMARY | 2018-05-29 08:38 | XMS REPORT ---
Author Author TIERNEY HODGE [facility] Address [address] [place] [address] Care Team Providers Care Audiologist Name Role Phone TIERNEY HODGE Unavailable PROBLEMS Type Condition ICD9-CM Code OSH52-HM Code Onset Dates Condition Status SNOMED Code Problem Sciatica, left side M54.32 Active 96690176 Problem Morbid (severe) obesity due to excess calories E66.01 Active 952508493 Problem Metabolic syndrome E88.81 Active 404694742 Problem Hypertriglyceridemia E78.1 Active 058226637 Problem Plantar neuroma of right foot G57.61 Active 161997099 Problem Sleep disturbance G47.9 Active 51873341 Problem Anxiety associated with depression F41.8 Active 835209069 Problem Anxiety associated with depression 300.4 Active 974939012 Problem Other chronic pain G89.29 Active 48961760 ALLERGIES Substance Reaction Event Type Date Status Hydrocodone-Acetaminophen itching Drug Allergy July, Active Hydrocodone itching Non Drug Allergy July, Active ENCOUNTERS Encounter Location Date Diagnosis [address] [id number], [place] [id number] July, Sleep disturbance G47.9 ; Pain in left shoulder M25.512 ; Other chronic pain G89.29 and Left elbow pain M25.522 [facility] [address] [facility] [id number] [place] [address] July, [address] [id number], [place] [address]45394447 July, Well woman exam with routine gynecological exam Z01.419 ; Breast cancer screening Z12.31 and BMI 40.0-44.9, adult Z68.[address] [id number], [place] [address] Jun, Pain in right knee M25.561 ; Pain in left knee M25.562 ; Other chronic pain G89.29 ; Hypertriglyceridemia E78.1 ; Pain in right elbow M25.521 ; Pain in left elbow M25.522 and Family history of diabetes mellitus Z83.3 [facility] [address] [id number], [place] [address] Jun, Pain in right knee M25.561 ; Pain in left knee M25.562 ; Other chronic pain G89.29 ; Pain in right elbow M25.521 ; Pain in left elbow M25.522 ; Hypertriglyceridemia E78.1 and Family history of diabetes mellitus Z83.3 [facility]Nakul [address] [id number], [place] [address] Apr, [facility] [address] [id number], [place] [address] Apr, Pain in right knee M25.561 and Other chronic pain G89.29 [facility]ul [address] [id number], [place] [address] Apr, Weight gain R63.5 [facility]K [address] [id number], [place] [address] Mar, Weight gain R63.5 ; Exercise counseling Z71.82 and BMI 40.0-44.9, adult Z68.41 [facility]K [address] [id number], [place] [address] Feb, Strep pharyngitis J02.0 [facility]ERSERadiusIQ IncFRANCES [address] [id number], [place] [address] Jan, [facility] [address] [id number], [place] [address] Jan, Anxiety associated with depression 300.4 [facility]EREwireless[address] [id number], [place] [address] Jan, BMI 40.0-44.9, adult Z68.41 ; Acute pain of right knee M25.561 ; Right foot pain M79.671 and Plantar neuroma of right foot G57.61 [facility] [address] [id number] [place] [address] Jan, Dental examination Z01.20 [facility] [address] [id number], [place] [address]40[address] Dec, Anxiety associated with depression 300.4 [facility] [address] [id number], [place] [address]492064 Dec, Anxiety associated with depression F41.8 ; Morbid (severe) obesity due to excess calories E66.01 and Sleep disturbance G47.9 [facility] [address] [id number], [place] 195952498 Dec, Anxiety associated with depression F41.8 and Sleep disturbance G47.9 [facility] [address] [id number], [place] [address]296[address] Dec, [facility] [address] [id number], [place] 8067561[address] Dec, Sleep disturbance G47.9 [facility] [address] [id number], [place] [address]97608587 Nov, [facility] [address] [id number], [place] [address] Nov, Morbid (severe) obesity due to excess calories E66.01 ; Sleep disturbance G47.9 ; Anxiety associated with depression F41.8 ; Pain in right knee M25.561 and Other chronic pain G89.29 [facility] [address] [id number], [place] [id number] 13 Nov, 2016 [facility] [address] [id number], [place] [address] 09 Nov, 2016 [facility] [address] [id number], [place] [address]555[address] Oct, Dental examination Z01.20 [facility] [address] [id number], [place] [id number] Oct, Dental examination Z01.20 [facility] [place] [address] [facility] [id number] [place] [address] Sep, [facility] [address] [id number], [place] [address]76[address] Sep, Morbid (severe) obesity due to excess calories E66.01 ; Dietary counseling Z71.3 and Weight gain finding R63.5 [facility] [address] [id number], [place] [address]405[address] Aug, [facility] [address] [id number], [place] 486[address]6350 Aug, Metabolic syndrome E88.81 ; Morbid (severe) obesity due to excess calories E66.01 and Anxiety associated with depression F41.8 [facility] [address]UAN [address] [id number], [place] [address] Aug, [facility] [address] [id number], [place] [address]87 Aug, Eustachian tube dysfunction, right H69.81 and Right acute serous otitis media, recurrence not specified H65.01 [facility] [address] [id number], [place] [address]48373[address] Jun, Sciatica, left side M54.32 [facility] [address] [id number], [place] 156210298 Jun, [facility] [address] [id number], [place] [address]855[address] Apr, [facility] [address] [id number], [place] [address]67241361 Apr, [facility] [address] [id number], [place] [address]88625[address] Apr, Acute non-recurrent maxillary sinusitis J01.00 [facility] [address] [id number], [place] 7925049[address] Apr, Acute non-recurrent maxillary sinusitis J01.[address] [facility] [address] [id number], [place] [address]28401703 Mar, Sore throat J02.[address] [facility] [address] [id number], [place] 856705995 Feb, Quadriceps tendonitis M76.899 [facility] [address] [id number], [place] [address]6093122 Feb, Abscess, abdomen K65.1 and Quadriceps tendonitis M76.[address] [facility] [address] [id number], [place] [address]18913780 Dec, Inflamed skin tag L91.[address] [facility] [address] [id number], [place] 983350383 Oct, Sciatica neuralgia 724.3 [facility] [address] [id number], [place] [address]32161636 Oct, Low back strain 847.2 [facility] [address] [facility] [id number], [place] [address] Sep, [facility] [address] [id number], [place] [address]2007779 Aug, Urinary tract infection 599.0 [facility] [address] [id number] [address] Jun, [facility] [address] [id number], [place] [address] Jun, [facility] [address] [id number], [place] [address] Apr, [facility] [address]00565100[place], [place] [address] Apr, [facility] [address] [id number], [place] [address] Mar, [facility] [address] [id number], [place] [address] Mar, [facility] [address] [facility] [id number] [place] [address] Oct, [facility] [address] [facility] [id number] [place] [address] Jun, [facility] [address] [facility] [id number] [place] [id number] May, [facility] [address] [facility] [id number], [place] [address]47[address] May, [facility] [address] [facility] [id number], [place] [address] Mar, IMMUNIZATIONS No Known Immunizations SOCIAL HISTORY Never Assessed REASON FOR VISIT Annual physical (female)---EFRAÍN rosado PLAN OF CARE Activity Details Follow Up prn Reason: Pending Test Mammogram, Bilateral Screening VITAL SIGNS Height 64.5 in 2017-08-03 Weight 262.3 lbs 2017-08-03 Temperature 98.1 degrees Fahrenheit 2017-08-03 Heart Rate 100 bpm 2017-08-03 Respiratory Rate 18 2017-08-03 BMI 44.32 kg/m2 2017-08-03 Blood pressure systolic 132 mmHg 2017-08-03 Blood pressure diastolic 80 mmHg 2017-08-03 MEDICATIONS Medication Instructions Dosage Frequency Start Date End Date Duration Status Seroquel 200 mg Orally Once a day 1 tablet at bedtime 24h Active Prilosec 20 mg Orally Once a day 1 capsule 24h 90 days Active Lexapro 20 mg Orally Once a day 1 tablets 24h Active RESULTS No Results PROCEDURES Procedure Date Ordered Result Body Site SPECIMEN HANDLING August 03, 2017 INSTRUCTIONS MEDICATIONS ADMINISTERED No Known Medications MEDICAL [...] right knee arthroscopy 07/2017 Hospitalization History appendicitis- [facility] Hospitalization History ER visit for shoulder pain 03/2016 Hospitalization History [facility] ER for lower back pain 01/2017
--- OUTSIDE RECORDS SUMMARY | 2018-05-29 08:38 | XMS REPORT ---
Author Author TIERNEY HODGE [facility] Address [address] [place] [address] Care Team Providers Care Music Engraver Name Role Phone TIERNEY HODGE Unavailable PROBLEMS Type Condition ICD9-CM Code YUH42-TH Code Onset Dates Condition Status SNOMED Code Problem Sciatica, left side M54.32 Active 96499128 Problem Morbid (severe) obesity due to excess calories E66.01 Active 067885858 Problem Metabolic syndrome E88.81 Active 923409596 Problem Hypertriglyceridemia E78.1 Active 825775314 Problem Plantar neuroma of right foot G57.61 Active 295167408 Problem Sleep disturbance G47.9 Active 27890732 Problem Anxiety associated with depression F41.8 Active 803561783 Problem Anxiety associated with depression 300.4 Active 337721351 Problem Other chronic pain G89.29 Active 22413796 ALLERGIES No Information ENCOUNTERS Encounter Location Date Diagnosis [address] [id number] [id number] July, Sleep disturbance G47.9 ; Pain in left shoulder M25.512 ; Other chronic pain G89.29 and Left elbow pain M25.522 [facility] [address] [facility] [id number] [place] [address] July, [address] [id number], [place] [address]376235[address] July, Well woman exam with routine gynecological exam Z01.419 ; Breast cancer screening Z12.31 and BMI 40.0-44.9, adult Z68.41 [facility] [address] [id number], [place] [address] 18 Jun, 2017 Pain in right knee M25.561 ; Pain in left knee M25.562 ; Other chronic pain G89.29 ; Hypertriglyceridemia E78.1 ; Pain in right elbow M25.521 ; Pain in left elbow M25.522 and Family history of diabetes mellitus Z83.3 [facility]ITALDSW HoldingsTER [address] [id number], [place] [address] Jun, Pain in right knee M25.561 ; Pain in left knee M25.562 ; Other chronic pain G89.29 ; Pain in right elbow M25.521 ; Pain in left elbow M25.522 ; Hypertriglyceridemia E78.1 and Family history of diabetes mellitus Z83.3 [facility] [address] [id number], [place] [address] Apr, [facility]ITALDSW HoldingsTER [address] [id number], [place] [address] Apr, Pain in right knee M25.561 and Other chronic pain G89.29 [facility] [address] [id number], [place] [address]24[address] Apr, Weight gain R63.5 [facility] [address] [id number], [place] [address]80[address] Mar, Weight gain R63.5 ; Exercise counseling Z71.82 and BMI 40.0-44.9, adult Z68.41 [facility]ITALDSW HoldingsTER [address] [id number], [place] [address]7764[address] Feb, Strep pharyngitis J02.0 [facility] [address] [id number], [place] [address] Jan, [facility] [address] [id number], [place] [address]250[address] Jan, Anxiety associated with depression 300.[address] [facility] [id number], [place] 740149823 Jan, BMI 40.0-44.9, adult Z68.41 ; Acute pain of right knee M25.561 ; Right foot pain M79.671 and Plantar neuroma of right foot G57.61 [facility]ITALDSW HoldingsTER [address] [id number] [place], [place] [address] Jan, Dental examination Z01.[address] [facility] [address] [id number] [place] 568[address] Dec, Anxiety associated with depression 300.[address] [facility] [address] [id number] [place] [address] Dec, Anxiety associated with depression F41.8 ; Morbid (severe) obesity due to excess calories E66.01 and Sleep disturbance G47.[address] [facility] [address] [id number], [place] 532097506 Dec, Anxiety associated with depression F41.8 and Sleep disturbance G47.[address] [facility] [address] [id number], [place] 788725[address] Dec, [facility] [address] [id number], [place] 595522874 Dec, Sleep disturbance G47.[address] [facility] [address] [id number], [place] [address]7501473 Nov, [facility] [address] [id number], [place] 652442919 Nov, Morbid (severe) obesity due to excess calories E66.01 ; Sleep disturbance G47.9 ; Anxiety associated with depression F41.8 ; Pain in right knee M25.561 and Other chronic pain G89.[address] [facility] [address] [id number], [place] 929182536 Nov, [facility] [address] [id number], [place] 955822168 Nov, [facility] [address] [id number], [place] 784842764 Oct, Dental examination Z01.[address] [facility] [address] [id number], [place] 832884373 Oct, Dental examination Z01.20 [facility] [address] [facility] [id number] [address] Sep, [facility] [address] [id number], [place] 646053180 Sep, Morbid (severe) obesity due to excess calories E66.01 ; Dietary counseling Z71.3 and Weight gain finding R63.[address] [facility] [address] [id number], [place] 3922777[address] Aug, [facility] [address] [id number], [place] [address]14737435 Aug, Metabolic syndrome E88.81 ; Morbid (severe) obesity due to excess calories E66.01 and Anxiety associated with depression F41.[address] [facility] [address] [id number], [place] 044563[address] Aug, [facility] [address] [id number], [place] [id number] Aug, Eustachian tube dysfunction, right H69.81 and Right acute serous otitis media, recurrence not specified H65.01 [facility] [address] [id number], [place] 152654106 Jun, Sciatica, left side M54.[address] [facility] [address] [id number], [place] 346909532 Jun, [facility] [address] [id number], [place] 508172411 Apr, [facility] [address] [id number], [place] 484466370 Apr, [facility] [address] [id number], [place] 7764177[address] Apr, Acute non-recurrent maxillary sinusitis J01.[address] [facility] [address] [id number], [place] 296276576 Apr, Acute non-recurrent maxillary sinusitis J01.[address] [facility] [address] [id number], [place] 956632248 Mar, Sore throat J02.[address] [facility] [address] [id number], [place] 77[address]168[address] Feb, Quadriceps tendonitis M76.[address] [facility] [address] [id number], [place] 532433360 Feb, Abscess, abdomen K65.1 and Quadriceps tendonitis M76.[address] [facility] [address] [id number], [place] 953733379 Dec, Inflamed skin tag L91.[address] [facility] [address] [id number], [place] 643175005 Oct, Sciatica neuralgia 724.3 [facility] [address] [id number], [place] 250343032 Oct, Low back strain 847.2 [facility] [address] [id number], [place] [address] Sep, [facility] [address] [id number], [place] 418050108 Aug, Urinary tract infection 599.0 [facility] [address]00565100[place] [address] Jun, [facility] [address]00565100[place] [address] Jun, [facility] [address]00565100[place] [address] Apr, [facility] [address]00565100[place] [address] Apr, [facility] [id number] [place] [address] Mar, [facility] [address]00565100[place] [address] Mar, [facility] [id number] [place] [address] Oct, [facility] [address] [facility] [id number] [place] [address] Jun, [facility] [address] [facility] [id number], [place] [address]73[address] May, [facility] [address] [id number] [place] [address] May, [address] [id number], [place] [address]645148[address] Mar, IMMUNIZATIONS No Known Immunizations SOCIAL HISTORY Never Assessed REASON FOR VISIT PLAN OF CARE VITAL SIGNS MEDICATIONS Unknown Medications RESULTS No Results PROCEDURES No Known procedures [...] right knee arthroscopy 07/2017 Hospitalization History appendicitis- [facility] Hospitalization History ER visit for shoulder pain 03/2016 Hospitalization History [facility] for lower back pain 01/2017
--- OUTSIDE RECORDS SUMMARY | 2018-05-29 08:38 | XMS REPORT ---
Author Author TIERNEY HODGE [facility] Address [address] [place] [address] Care Team Providers Care Bunghole Borer Name Role Phone TIERNEY HODGE Unavailable PROBLEMS Type Condition ICD9-CM Code MUB81-HB Code Onset Dates Condition Status SNOMED Code Problem Sciatica, left side M54.32 Active 18760853 Problem Morbid (severe) obesity due to excess calories E66.01 Active 304293968 Problem Metabolic syndrome E88.81 Active 989904995 Problem Hypertriglyceridemia E78.1 Active 518251765 Problem Plantar neuroma of right foot G57.61 Active 560707649 Problem Sleep disturbance G47.9 Active 20815089 Problem Anxiety associated with depression F41.8 Active 562452277 Problem Anxiety associated with depression 300.4 Active 824018785 Problem Other chronic pain G89.29 Active 24037642 ALLERGIES No Information ENCOUNTERS Encounter Location Date Diagnosis [address] [id number] [id number] July, Sleep disturbance G47.9 ; Pain in left shoulder M25.512 ; Other chronic pain G89.29 and Left elbow pain M25.522 [facility] [address] [facility] [place] 2[place] [id number], [place] [address] July, [address] [id number], [place] [address] July, Well woman exam with routine gynecological exam Z01.419 ; Breast cancer screening Z12.31 and BMI 40.0-44.[address], [address] [facility] [address] [id number], [place] [id number] 18 Jun, 2017 Pain in right knee M25.561 ; Pain in left knee M25.562 ; Other chronic pain G89.29 ; Hypertriglyceridemia E78.1 ; Pain in right elbow M25.521 ; Pain in left elbow M25.522 and Family history of diabetes mellitus Z83.3 [facility] [address] [id number], [place] [address] Jun, Pain in right knee M25.561 ; Pain in left knee M25.562 ; Other chronic pain G89.29 ; Pain in right elbow M25.521 ; Pain in left elbow M25.522 ; Hypertriglyceridemia E78.1 and Family history of diabetes mellitus Z83.3 [facility] [address] [id number], [place] [address] Apr, [facility] [address] [id number], [place] [address] Apr, Pain in right knee M25.561 and Other chronic pain G89.29 [facility] [address] [id number], [place] [address] Apr, Weight gain R63.5 [facility] [address] [id number], [place] [address] Mar, Weight gain R63.5 ; Exercise counseling Z71.82 and BMI 40.0-44.9, adult Z68.41 [facility] [address] [address] [id number], [place] [address] Feb, Strep pharyngitis J02.0 [facility] [address] [id number], [place] [address] Jan, [facility] [address] [id number], [place] [address] Jan, Anxiety associated with depression 300.[address] [facility] [address] [id number], [place] [address] Jan, BMI 40.0-44.9, adult Z68.41 ; Acute pain of right knee M25.561 ; Right foot pain M79.671 and Plantar neuroma of right foot G57.61 [facility] [address] [address] [id number] [place] [address] Jan, Dental examination Z01.[address] [facility] [address] [id number] [place] [address] Dec, Anxiety associated with depression 300.[address] [facility] [address] [id number] [place] [address] Dec, Anxiety associated with depression F41.8 ; Morbid (severe) obesity due to excess calories E66.01 and Sleep disturbance G47.[address] [facility] [address] [id number], [place] [address]67[address] Dec, Anxiety associated with depression F41.8 and Sleep disturbance G47.[address] [facility] [address] [id number], [place] 338[address]698 Dec, [facility] [address] [id number], [place] 345176128 Dec, Sleep disturbance G47.[address] [facility] [address] [id number], [place] [address] Nov, [facility] [address] [id number], [place] 811078178 Nov, Morbid (severe) obesity due to excess calories E66.01 ; Sleep disturbance G47.9 ; Anxiety associated with depression F41.8 ; Pain in right knee M25.561 and Other chronic pain G89.[address] [facility] [address] [id number], [place] 45[address] Nov, [facility] [address] [id number], [place] 522[address] Nov, [facility] [address] [id number], [place] 593459803 Oct, Dental examination Z01.[address] [facility] [address] [id number], [place] [address]12[address]98 Oct, Dental examination Z01.20 [facility] [address] [facility] [place] [id number][place] [address] Sep, [facility] [address] [address] [id number], [place] [address]38311948 Sep, Morbid (severe) obesity due to excess calories E66.01 ; Dietary counseling Z71.3 and Weight gain finding R63.[address] [facility] [address] [id number], [place] [address] Aug, [facility] [address] [id number], [place] [address]17[address] Aug, Metabolic syndrome E88.81 ; Morbid (severe) obesity due to excess calories E66.01 and Anxiety associated with depression F41.[address] [facility] [address] [id number], [place] [address]14[address] Aug, [facility] [address] [id number], [place] [address]16[address] Aug, Eustachian tube dysfunction, right H69.81 and Right acute serous otitis media, recurrence not specified H65.01 [facility] [address] [id number], [place] [address]0176[address] Jun, Sciatica, left side M54.[address] [facility] [address] [address] [id number], [place] 84[address] Jun, [facility] [address] [id number], [place] [address] Apr, [facility] [address] [id number], [place] [address] Apr, [facility] [address] [id number], [place] 967228518 Apr, Acute non-recurrent maxillary sinusitis J01.[address] [facility] [address] [id number], [place] 848090150 Apr, Acute non-recurrent maxillary sinusitis J01.[address] [facility] [address] [id number], [place] 275[address] Mar, Sore throat J02.[address] [facility] [address] [id number], [place] 904024[address] Feb, Quadriceps tendonitis M76.[address] [facility] [address] [id number], [place] [address]67[address] Feb, Abscess, abdomen K65.1 and Quadriceps tendonitis M76.[address] [facility] [address] [id number], [place] [address] Dec, Inflamed skin tag L91.[address] [facility] [address] [address] [id number], [place] [address]87980[address] Oct, Sciatica neuralgia 724.3 [facility] [address] [id number], [place] 390555061 Oct, Low back strain 847.2 [facility]IT[facility] [address] [id number], [place] [address] Sep, [facility] [address] [address] [id number], [place] [address]8840 Aug, Urinary tract infection 599.0 [facility] [id number], [place] [address] Jun, [facility] [id number], [place] [address] Jun, [facility] [id number], [place] [address] Apr, [facility] [id number], [place] [address] Apr, [facility] [id number] [place] [address] Mar, [facility] [address]65100[place], [place] [address] Mar, [facility] [id number] [place] [address] Oct, [facility] [address] [facility] [id number] [place] [address] Jun, [address] [id number], [place] 595[address]8469 May, [facility] [address] [facility] [id number], [place] [address] May, [address] [id number], [place] 965696372 Mar, IMMUNIZATIONS No Known Immunizations SOCIAL HISTORY Never Assessed REASON FOR VISIT labs PLAN OF CARE VITAL SIGNS MEDICATIONS Unknown Medications RESULTS No Results PROCEDURES Procedure Date Ordered Result Body Site LAB NOT BILLED BY [facility] July 11, 2017 ELIJAH CONNELLY* July 11, 2017 INSTRUCTIONS MEDICATIONS ADMINISTERED No Known Medications [...] right knee arthroscopy 07/2017 Hospitalization History appendicit[facility]- [facility] Hospitalization History ER visit for shoulder pain 03/2016 Hospitalization History [facility] ER for lower back pain 01/2017
--- OUTSIDE RECORDS SUMMARY | 2018-05-29 08:38 | XMS REPORT ---
Author Author TIERNEY HODGE [facility] Address [address] [place] [address] Care Team Providers Care Supplier Relationship Director Name Role Phone TIERNEY HODGE Unavailable PROBLEMS Type Condition ICD9-CM Code JFH16-PI Code Onset Dates Condition Status SNOMED Code Problem Sciatica, left side M54.32 Active 24321751 Problem Morbid (severe) obesity due to excess calories E66.01 Active 043524751 Problem Metabolic syndrome E88.81 Active 664172368 Problem Hypertriglyceridemia E78.1 Active 395841229 Problem Plantar neuroma of right foot G57.61 Active 945419556 Problem Sleep disturbance G47.9 Active 46871914 Problem Anxiety associated with depression F41.8 Active 869424819 Problem Anxiety associated with depression 300.4 Active 543419988 Problem Other chronic pain G89.29 Active 08142844 ALLERGIES Substance Reaction Event Type Date Status Hydrocodone-Acetaminophen itching Drug Allergy July, Active Hydrocodone itching Non Drug Allergy July, Active ENCOUNTERS Encounter Location Date Diagnosis [address] [id number] [place]ILL[place] [address] July, Sleep disturbance G47.9 ; Pain in left shoulder M25.512 ; Other chronic pain G89.29 and Left elbow pain M25.522 [facility] [address] [facility] [id number] [place] [address] July, [address] [id number] MILL[place] [address] July, Well woman exam with routine gynecological exam Z01.419 ; Breast cancer screening Z12.31 and BMI 40.0-44.9, adult Z68.[address] [id number] MILL, [place] [address]39556[address] Jun, Pain in right knee M25.561 ; Pain in left knee M25.562 ; Other chronic pain G89.29 ; Hypertriglyceridemia E78.1 ; Pain in right elbow M25.521 ; Pain in left elbow M25.522 and Family history of diabetes mellitus Z83.3 [facility] PR [address]Nak[address] [id number] MILL, [place] [address] Jun, Pain in right knee M25.561 ; Pain in left knee M25.562 ; Other chronic pain G89.29 ; Pain in right elbow M25.521 ; Pain in left elbow M25.522 ; Hypertriglyceridemia E78.1 and Family history of diabetes mellitus Z83.3 [facility] PR GroupNakul [address] [id number] MILL, [place] [address] Apr, [facility] FR[facility] [id number] MILL, [place] [address] Apr, Pain in right knee M25.561 and Other chronic pain G89.29 [facility] PR GroupNakul [address] [id number] [place]ILL, [place] [address]61 Apr, Weight gain R63.5 [facility] PR GroupK FR[address] [id number] MILL, [place] [address] Mar, Weight gain R63.5 ; Exercise counseling Z71.82 and BMI 40.0-44.9, adult Z68.41 [facility] PR GroupK [address] [id number] [place]ILL, [place] [address]352 Feb, Strep pharyngitis J02.0 [facility] INSTITUTESETiny PostFRANCES [address] [id number] [place]ILL, [place] [address]46347976 Jan, [facility] [address] [id number] MILL, [place] 48[address]20581 Jan, Anxiety associated with depression 300.4 [facility]UTESilent PowerTER [address] [id number] [place]ILL, [place] [address]2222356 Jan, BMI 40.0-44.9, adult Z68.41 ; Acute pain of right knee M25.561 ; Right foot pain M79.671 and Plantar neuroma of right foot G57.61 [facility] [address] [id number] [place] [address] Jan, Dental examination Z01.20 [facility] INSTITUTESENakul [address] [id number] [place]ILL, [place] 314[address] Dec, Anxiety associated with depression 300.4 [facility] [address] [id number] [place]ILL, [place] 469393723 Dec, Anxiety associated with depression F41.8 ; Morbid (severe) obesity due to excess calories E66.01 and Sleep disturbance G47.9 [facility] [address] [id number] [place]ILL, [place] 525454758 Dec, Anxiety associated with depression F41.8 and Sleep disturbance G47.9 [facility] [address] [id number] [place]ILL, [place] 594024563 Dec, [facility] [address] [id number] [place], [place] 57[address]15[address] Dec, Sleep disturbance G47.9 [facility] [address] [id number] [place] 865695144 Nov, [facility] [address] [id number] [place]ILL[place] 717704167 Nov, Morbid (severe) obesity due to excess calories E66.01 ; Sleep disturbance G47.9 ; Anxiety associated with depression F41.8 ; Pain in right knee M25.561 and Other chronic pain G89.29 [facility] [address] [id number] [place]ILL[place] [address]661904[address] 13 Nov, 2016 [facility] [address] [id number] MILL, [place] 785125287 09 Nov, 2016 [facility] [address] [id number] [place]ILL, [place] 464570127 Oct, Dental examination Z01.20 [facility] [address] [id number] [place]ILL, [place] [id number] Oct, Dental examination Z01.20 [facility] [address] [facility] [id number] [place], [place] [address] Sep, [facility]STITUTEPARKER [address] [id number] [place]ILL[place] 027572567 Sep, Morbid (severe) obesity due to excess calories E66.01 ; Dietary counseling Z71.3 and Weight gain finding R63.5 [facility] [address] [id number] [place]ILL, [place] 370933596 Aug, [facility] [address] [id number] [place]ILL, [place] 365476296 Aug, Metabolic syndrome E88.81 ; Morbid (severe) obesity due to excess calories E66.01 and Anxiety associated with depression F41.8 [facility]ESEK JUAN [address] [id number] MILL, [place] 489163026 Aug, [facility] [address] [id number] [place]ILL, [place] 050879147 Aug, Eustachian tube dysfunction, right H69.81 and Right acute serous otitis media, recurrence not specified H65.01 [facility]K [address] [id number] [place]ILL, [place] 807246131 Jun, Sciatica, left side M54.32 [facility] [address] [id number] [place]ILL, [place] 510105821 Jun, [facility] [address] [id number] [place]ILL, [place] 965038963 Apr, [facility] [address] [id number] [place]ILL[place] [address] Apr, [facility] [address] [id number] [place]ILL, [place] 844176016 Apr, Acute non-recurrent maxillary sinusitis J01.00 [facility] [address] [id number] [place]ILL, [place] 976886403 Apr, Acute non-recurrent maxillary sinusitis J01.[address] [facility] [address] [id number] [place], [place] 185201990 Mar, Sore throat J02.[address] [facility] [address] [id number] [place]ILL, [place] 831383664 Feb, Quadriceps tendonitis M76.899 [facility] [address] [id number] MILL, [place] 320399979 Feb, Abscess, abdomen K65.1 and Quadriceps tendonitis M76.[address] [facility] [address] [id number] [place]ILL, [place] 497480814 Dec, Inflamed skin tag L91.[address] [facility] [address] [id number] [place]ILL, [place] 434839889 Oct, Sciatica neuralgia 724.3 [facility] [address] [id number] [place]ILL, [place] 379535896 Oct, Low back strain 847.2 [facility] [place] [address] [facility] [id number], [place] [address]13[address] Sep, [facility] [address] [address] [id number] MILL, [place] 68[address]27548 Aug, Urinary tract infection 599.0 [facility] [address] [id number], [place] [address] Jun, [facility] [address] [id number], [place] [address] Jun, [facility] [address] [id number], [place] [address] Apr, [facility] [address]00565100[place], [place] [address] Apr, [facility] [address] [id number], [place] [address] Mar, [facility] [address] [id number], [place] [address] Mar, [facility] [address] [facility] [id number] [place] [address] Oct, [facility] [address] [facility] [place] [id number] [place] [id number] Jun, [facility] [address] [facility] [place] [id number] [place] [id number] May, [facility] [address] [facility] [place] [id number], [place] 720054714 May, [facility] [address] [facility] [place] [id number], [place] [id number] Mar, IMMUNIZATIONS No Known Immunizations SOCIAL HISTORY Never Assessed REASON FOR VISIT medication concerns--refill request received on seroquel today--- BFERRISMA PLAN OF CARE Activity Details Follow Up prn Reason: VITAL SIGNS Height 64.5 in 2017-08-09 Weight 260.9 lbs 2017-08-09 Temperature 97.4 degrees Fahrenheit 2017-08-09 Heart Rate 102 bpm 2017-08-09 Respiratory Rate 18 2017-08-09 Oximetry 95 % 2017-08-09 BMI 44.09 kg/m2 2017-08-09 Blood pressure systolic 142 mmHg 2017-08-09 Blood pressure diastolic 90 mmHg 2017-08-09 MEDICATIONS Medication Instructions Dosage Frequency Start Date End Date Duration Status Prilosec 20 mg Orally Once a day 1 capsule 24h 90 days Active Oxycodone HCl 10 MG Orally every 6 hrs 1 tablet as needed 6h Active Seroquel 200 mg Orally Once a day 1 tablet at bedtime 24h Active Lexapro 20 mg Orally Once a [...] right knee arthroscopy 07/2017 Hospitalization History appendicitis- [facility] Hospitalization History ER visit for shoulder pain 03/2016 Hospitalization History [facility] ER for lower back pain 01/2017
--- OUTSIDE RECORDS SUMMARY | 2018-05-29 08:39 | XMS REPORT ---
Author Author TIERNEY HODGE [facility] FRANCES Address [address] [place] [address] Care Team Providers Care Leasing Machine Tender Name Role Phone TIERNEY HODGE Unavailable PROBLEMS Type Condition ICD9-CM Code [id number] Code Onset Dates Condition Status SNOMED Code Problem Sciatica, left side M54.32 Active 61864671 Problem Morbid (severe) obesity due to excess calories E66.01 Active 490917647 Problem Metabolic syndrome E88.81 Active 347802074 Problem Hypertriglyceridemia E78.1 Active 436464816 Problem Plantar neuroma of right foot G57.61 Active 047519270 Problem Sleep disturbance G47.9 Active 17662737 Problem Anxiety associated with depression F41.8 Active 930961955 Problem Anxiety associated with depression 300.4 Active 502027030 Problem Other chronic pain G89.29 Active 66782320 ALLERGIES No Information ENCOUNTERS Encounter Location Date Diagnosis [facility] JUAN DANIEL Ordonez [facility] [address] [id number], [place] [id number] July, [facility] [address]ES[address] [id number], [place] [address] July, [address] [id number], [place] [address]32[address] Jun, Pain in right knee M25.561 ; Pain in left knee M25.562 ; Other chronic pain G89.29 ; Hypertriglyceridemia E78.1 ; Pain in right elbow M25.521 ; Pain in left elbow M25.522 and Family history of diabetes mellitus Z83.3 [facility] [address] [id number], [place] [address]1055691 Jun, Pain in right knee M25.561 ; Pain in left knee M25.562 ; Other chronic pain G89.29 ; Pain in right elbow M25.521 ; Pain in left elbow M25.522 ; Hypertriglyceridemia E78.1 and Family history of diabetes mellitus Z83.3 [facility] [address] [id number], [place] [id number] Apr, [facility] [address] [id number], [place] 006957520 Apr, Pain in right knee M25.561 and Other chronic pain G89.29 [facility] [address] [id number], [place] 394058737 Apr, Weight gain R63.5 [facility] FRANCES [employer] [address] [place] [address] AVE [id number], [place] [address]01588[address] Mar, Weight gain R63.5 ; Exercise counseling Z71.82 and BMI 40.0-44.9, adult Z68.41 [facility] [address] [id number], [place] [address] Feb, Strep pharyngitis J02.0 [facility] [address] [id number], [place] [address] Jan, [facility] [address] [id number], [place] [address]8825[address] Jan, Anxiety associated with depression 300.4 [facility] [address] [address] [id number], [place] [id number] Jan, BMI 40.0-44.9, adult Z68.41 ; Acute pain of right knee M25.561 ; Right foot pain M79.671 and Plantar neuroma of right foot G57.61 [facility] [address] [id number], [place] 471185485 07 Jan, 2017 Dental examination Z01.20 [facility] [address] [id number], [place] [id number] Dec, Anxiety associated with depression 300.4 [facility] [address] [id number], [place] [id number] Dec, Anxiety associated with depression F41.8 ; Morbid (severe) obesity due to excess calories E66.01 and Sleep disturbance G47.9 [facility] [address] [id number], [place] [id number] Dec, Anxiety associated with depression F41.8 and Sleep disturbance G47.[address] [facility] [address] [id number], [place] 176144640 Dec, [facility] [address] [id number], [place] [address]26698635 Dec, Sleep disturbance G47.9 [facility] [address] [id number], [place] [id number] Nov, [facility] [address] [id number], [place] 201942933 Nov, Morbid (severe) obesity due to excess calories E66.01 ; Sleep disturbance G47.9 ; Anxiety associated with depression F41.8 ; Pain in right knee M25.561 and Other chronic pain G89.29 [facility] [address] [id number], [place] 478202437 Nov, [facility] [address] [id number], [place] [address]34982[address] Nov, [facility] [address] [id number], [place] 810979264 Oct, Dental examination Z01.20 [facility] [address] [id number], [place] [address]74455284 Oct, Dental examination Z01.20 [facility] [address] [facility] [id number], [place] [address] Sep, [facility] [address] [id number], [place] 559811455 Sep, Morbid (severe) obesity due to excess calories E66.01 ; Dietary counseling Z71.3 and Weight gain finding R63.5 [facility] [address] [id number], [place] 904455061 Aug, [facility] [address] [id number], [place] 616819166 Aug, Metabolic syndrome E88.81 ; Morbid (severe) obesity due to excess calories E66.01 and Anxiety associated with depression F41.[address] [facility] [address] [id number], [place] 28120[address] Aug, [facility] [address] [id number], [place] 692659829 Aug, Eustachian tube dysfunction, right H69.81 and Right acute serous otitis media, recurrence not specified H65.[address] [facility] [address] [id number], [place] 991233220 Jun, Sciatica, left side M54.[address] [facility] [address] [id number], [place] 648026178 Jun, [facility] [address] [id number], [place] 0749150[address] Apr, [facility] [address] [id number], [place] [address]74254[address] Apr, [facility] [address] [id number], [place] 138133193 Apr, Acute non-recurrent maxillary sinusitis J01.[address] [facility] [address] [id number], [place] 333979489 Apr, Acute non-recurrent maxillary sinusitis J01.[address] [facility] [address] [id number], [place] [address]39151202 Mar, Sore throat J02.[address] [facility] [address] [id number], [place] 237655631 Feb, Quadriceps tendonitis M76.899 [facility] [address] [id number], [place] 511201481 Feb, Abscess, abdomen K65.1 and Quadriceps tendonitis M76.899 [facility] [address] [id number], [place] 002306875 Dec, Inflamed skin tag L91.[address] [facility] [address] [id number], [place] 392738389 Oct, Sciatica neuralgia 724.[address] [facility] [address] [id number], [place] 410142887 Oct, Low back strain 847.2 [facility] [place] [address] [id number] 384634[address] Sep, [facility] [address] [id number], [place] 570698558 Aug, Urinary tract infection 599.0 [facility] [address]00565100[place], [place] [address]- [address] Jun, [facility] [place] [facility] [address]00565100[place], [place] [address] Jun, [facility] [address]00565100[place], [place] [address] Apr, [facility] [address]00565100[place], [place] [address] Apr, [facility] [address]65100[place], [place] [address] Mar, [facility] [address]00565100[place], [place] [address] Mar, [facility] [address]00565100[place], [place] [address] Oct, [facility] [place] [address] [id number], [place] 3127[address]82 Jun, [facility] [place] [address] [id number], [place] 4998355[address] May, [facility] [address] [id number], [place] [address]196036[address] May, [facility] [address] [facility] [id number] [place] [address] Mar, IMMUNIZATIONS No Known Immunizations SOCIAL HISTORY Never Assessed REASON FOR VISIT Medication question PLAN OF CARE VITAL SIGNS MEDICATIONS Unknown [...] appendectomy Surgical History foot arch surgeris X4 Hospitalization History appendicitis- [facility] Hospitalization History ER visit for shoulder pain 03/2016 Hospitalization History [facility] ER for lower back pain 01/2017
--- OUTSIDE RECORDS SUMMARY | 2018-05-29 08:39 | XMS REPORT ---
Author Author TIERNEY HODGE [facility] Address [address] [place] [address] Care Team Providers Care Retail Asset Protection Specialist Name Role Phone TIERNEY HODGE Unavailable PROBLEMS Type Condition ICD9-CM Code [id number] Code Onset Dates Condition Status SNOMED Code Problem Morbid (severe) obesity due to excess calories E66.01 Active 730022232 Problem Metabolic syndrome E88.81 Active 245618688 Problem Anxiety associated with depression F41.8 Active 810837977 Problem Sciatica, left side M54.32 Active 88528828 ALLERGIES Substance Reaction Event Type Date Status Hydrocodone-Acetaminophen itching Drug Allergy Apr, Active Hydrocodone itching Non Drug Allergy Apr, Active SOCIAL HISTORY Never Assessed PLAN OF CARE Activity Details Follow Up prn Reason: VITAL SIGNS Height 64.5 in 2016-05-08 Weight 249 lbs 2016-05-08 Temperature 98.9 degrees Fahrenheit 2016-05-08 Heart Rate 89 bpm 2016-05-08 Respiratory Rate 16 2016-05-08 BMI 42.08 kg/m2 2016-05-08 Blood pressure systolic 118 mmHg 2016-05-08 Blood pressure diastolic 82 mmHg 2016-05-08 MEDICATIONS Medication Instructions Dosage Frequency Start Date End Date Duration Status Prilosec 40 MG Orally Once a day 1 capsule 24h Active Augmentin 875-125 MG Orally every 12 hrs 1 tablet 12h Apr,Apr 10 day(s) Active Lexapro 20 mg Orally Once a day 2 tablets 24h Active Seroquel 200 MG Orally Once a day 1 tablet at bedtime 24h Active RESULTS No Results PROCEDURES Procedure Date Ordered Result Body Site SOLUMEDROL (UP TO 125 MG) May 08, 2016 THER/PROPH/DIAG INJ, SC/IM May 08, 2016 IMMUNIZATIONS Vaccine Route Administration Date Status SOLUMEDROL (UP TO 125 MG) IM Intramuscular May 08, 2016 Administered MEDICAL (GENERAL) HISTORY Type Description Date Medical History hx of kidney stones and uti Medical History migraine headaches Medical History heartburn Medical History depression Medical History anxiety Medical History insomnia Medical History Left foot, Sprain Surgical History tonsillectomy and adenoidectomy Surgical History tubal ligation Surgical History tonsillectomy Surgical History lithotripsy Surgical History wisdom teeth extraction Surgical History appendectomy Surgical History bilat foot surgery Surgical History appendectomy Surgical History foot arch surgeris X4 Hospitalization History appendicitis- [facility] Hospitalization History ER visit for shoulder pain 03/2016
--- OUTSIDE RECORDS SUMMARY | 2018-05-29 08:39 | XMS REPORT ---
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 Role Phone TIERNEY HODGE Unavailable PROBLEMS Type Condition ICD9-CM Code [id number] Code Onset Dates Condition Status SNOMED Code Problem Sciatica, left side M54.32 Active 28355429 Problem Morbid (severe) obesity due to excess calories E66.01 Active 587950158 Problem Metabolic syndrome E88.81 Active 903933842 Problem Hypertriglyceridemia E78.1 Active 829981998 Problem Plantar neuroma of right foot G57.61 Active 991577328 Problem Sleep disturbance G47.9 Active 90098774 Problem Anxiety associated with depression F41.8 Active 788610928 Problem Anxiety associated with depression 300.4 Active 575129948 Problem Other chronic pain G89.29 Active 69263229 ALLERGIES No Information ENCOUNTERS Encounter Location Date Diagnosis [address] [id number], [place] [id number] July, [address] [id number], [place] 108202026 July, Well woman exam with routine gynecological exam Z01.419 ; Breast cancer screening Z12.31 and BMI 40.0-44.9, adult Z68.[address] [id number], [place] 777555194 18 Jun, 2017 Pain in right knee M25.561 ; Pain in left knee M25.562 ; Other chronic pain G89.29 ; Hypertriglyceridemia E78.1 ; Pain in right elbow M25.521 ; Pain in left elbow M25.522 and Family history of diabetes mellitus Z83.[address] [id number], [place] 461419093 Jun, Pain in right knee M25.561 ; Pain in left knee M25.562 ; Other chronic pain G89.29 ; Pain in right elbow M25.521 ; Pain in left elbow M25.522 ; Hypertriglyceridemia E78.1 and Family history of diabetes mellitus Z83.3 [facility] [address] [id number], [place] 892304324 Apr, [facility] [address] [place] [address] AVE [id number], [place] 031949682 Apr, Pain in right knee M25.561 and Other chronic pain G89.29 [facility] FRANCES [address] [place] [address] AVE [id number], [place] 450503951 Apr, Weight gain R63.5 [facility] [employer] [place] [address] AV [id number], [place] 118803963 Mar, Weight gain R63.5 ; Exercise counseling Z71.82 and BMI 40.0-44.9, adult Z68.41 [facility] [employer] [place] [address] AVE [id number], [place] 320088827 Feb, Strep pharyngitis J02.0 [facility] [employer] [place] [address] AVE [id number], [place] 097955256 Jan, [facility] FR[facility]ES [employer] [place] [address] AV [id number], [place] 555170307 Jan, Anxiety associated with depression 300.4 [facility] [employer] [place] [address] AVE [id number], [place] 269256077 Jan, BMI 40.0-44.9, adult Z68.41 ; Acute pain of right knee M25.561 ; Right foot pain M79.671 and Plantar neuroma of right foot G57.61 [facility] [address] [id number], [place] 0749674[address] Jan, Dental examination Z01.20 [facility] [address] [id number], [place] 518129887 Dec, Anxiety associated with depression 300.4 [facility] [address] [id number], [place] 660326468 Dec, Anxiety associated with depression F41.8 ; Morbid (severe) obesity due to excess calories E66.01 and Sleep disturbance G47.9 [facility] [address] [id number], [place] 301159939 Dec, Anxiety associated with depression F41.8 and Sleep disturbance G47.9 [facility] [address] [id number], [place] 684470503 Dec, [facility] [address] [id number], [place] 425669710 Dec, Sleep disturbance G47.9 [facility] [address] [id number], [place] 494489599 Nov, [facility] [address] [id number], [place] 276303062 Nov, Morbid (severe) obesity due to excess calories E66.01 ; Sleep disturbance G47.9 ; Anxiety associated with depression F41.8 ; Pain in right knee M25.561 and Other chronic pain G89.29 [facility] [address] [id number], [place] [id number] Nov, [facility] [address] [id number], [place] 303710492 Nov, [facility] [address] [id number], [place] 930909091 Oct, Dental examination Z01.20 [facility] [address] [id number], [place] 193361854 Oct, Dental examination Z01.20 [facility] [address] [facility] [id number] [place] [address] Sep, [facility] [address] [id number], [place] 749326433 Sep, Morbid (severe) obesity due to excess calories E66.01 ; Dietary counseling Z71.3 and Weight gain finding R63.[address] [facility] [address] [id number], [place] 001827984 Aug, [facility] [address] [id number], [place] 532973935 Aug, Metabolic syndrome E88.81 ; Morbid (severe) obesity due to excess calories E66.01 and Anxiety associated with depression F41.[address] [facility] [address] [id number], [place] 028921932 Aug, [facility] [address] [id number], [place] 602288294 Aug, Eustachian tube dysfunction, right H69.81 and Right acute serous otitis media, recurrence not specified H65.[address] [facility] [address] [id number], [place] 778548149 Jun, Sciatica, left side M54.[address] [facility] [address] [id number], [place] 524742406 Jun, [facility] [address] [id number], [place] 132251157 Apr, [facility] [address] [id number], [place] 246055972 Apr, [facility] [address] [id number], [place] 570377531 Apr, Acute non-recurrent maxillary sinusitis J01.[address] [facility] [address] [id number], [place] 254898442 Apr, Acute non-recurrent maxillary sinusitis J01.[address] [facility] [address] [id number], [place] 423947454 Mar, Sore throat J02.[address] [facility] [address] [id number], [place] 994086784 Feb, Quadriceps tendonitis M76.[address] [facility] [address] [id number], [place] 482705078 Feb, Abscess, abdomen K65.1 and Quadriceps tendonitis M76.[address] [facility] [address] [id number], [place] 153263758 Dec, Inflamed skin tag L91.[address] [facility] [address] [id number], [place] 916301387 Oct, Sciatica neuralgia 724.[address] [facility] [address] [id number], [place] 317433445 Oct, Low back strain 847.2 [facility] [place] [address] [facility] [id number], [place] 367209019 Sep, [facility] [address] [id number], [place] 799373691 Aug, Urinary tract infection 599.0 [facility] [address]00565100[place], [place] [address] Jun, [facility] [address] [id number] [address]46[place]- [address] Jun, [facility] [address]00565100[place], [place] 794568- [address] Apr, [facility] [address]00565100[place], [place] [address] Apr, [facility] [address]00565100[place], [place] 650395- [address] Mar, [facility] [address] [id number], [place] 738312- [address] Mar, [facility] [address]00565100[place], [place] [address] Oct, [facility] [place] [address] [id number], [place] 600999220 Jun, [facility] [place] [place] [address] [facility] [id number], [place] 909631367 May, [facility] [address] [facility] [id number] [place] 795665883 May, [facility] [address] [facility] [id number] [place] 108460167 Mar, IMMUNIZATIONS No Known Immunizations SOCIAL HISTORY Never Assessed REASON FOR VISIT Medication refill request PLAN OF CARE VITAL SIGNS MEDICATIONS Medication Instructions Dosage Frequency Start Date End Date Duration Status Lexapro 20 mg Orally Once a day 1 tablets 24h Active Seroquel 200 mg Orally Once a day 1 tablet at bedtime 24h Active RESULTS No Results PROCEDURES No [...] right knee arthroscopy 07/2017 Hospitalization History appendicitis- [facility] Hospitalization History ER visit for shoulder pain 03/2016 Hospitalization History [facility] ER for lower back pain 01/2017
--- OUTSIDE RECORDS SUMMARY | 2018-05-29 08:39 | XMS REPORT ---
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 Name Role Phone LUIGI BROWNARDO Unavailable PROBLEMS Type Condition ICD9-CM Code [id number] Code Onset Dates Condition Status SNOMED Code Problem Sciatica, left side M54.32 Active 09910648 Problem Morbid (severe) obesity due to excess calories E66.01 Active 194197597 Problem Metabolic syndrome E88.81 Active 223591737 Problem Hypertriglyceridemia E78.1 Active 666290475 Problem Plantar neuroma of right foot G57.61 Active 907263906 Problem Sleep disturbance G47.9 Active 22882888 Problem Anxiety associated with depression F41.8 Active 500552378 Problem Anxiety associated with depression 300.4 Active 283707203 Problem Other chronic pain G89.29 Active 75308227 ALLERGIES Substance Reaction Event Type Date Status Hydrocodone-Acetaminophen itching Drug Allergy Oct, Active Hydrocodone itching Non Drug Allergy Oct, Active ENCOUNTERS Encounter Location Date Diagnosis [address] [id number] [place] 212943850 Jun, Pain in right knee M25.561 ; Pain in left knee M25.562 ; Other chronic pain G89.29 ; Hypertriglyceridemia E78.1 ; Pain in right elbow M25.521 ; Pain in left elbow M25.522 and Family history of diabetes mellitus Z83.[address] [id number] [place] 343316370 Jun, Pain in right knee M25.561 ; Pain in left knee M25.562 ; Other chronic pain G89.29 ; Pain in right elbow M25.521 ; Pain in left elbow M25.522 ; Hypertriglyceridemia E78.1 and Family history of diabetes mellitus Z83.[address] [address] [id number] [place], [place] [address] Apr, [facility] [address] [id number] [place] 769608439 Apr, Pain in right knee M25.561 and Other chronic pain G89.29 [facility]AN DANIEL [address] [place] [address] AVE [id number] [place]OU[place], [place] 428357576 Apr, Weight gain R63.5 [facility] FRANCES [address] [place] [address] AVE [id number] LOU[place], [place] 994502922 Mar, Weight gain R63.5 ; Exercise counseling Z71.82 and BMI 40.0-44.9, adult Z68.41 [facility] [address] [place] [address] AVE [id number] [place] 023780991 Feb, Strep pharyngitis J02.0 [facility] FRANC[facility] [address] [place] [address] AVE [id number] [place], [place] [id number] Jan, [facility] [address] [place] [address] AVE [id number] [place], [place] 938150218 Jan, Anxiety associated with depression 300.4 [facility] [address] [place] [address] A[address] [id number] [place], [place] 334766000 Jan, BMI 40.0-44.9, adult Z68.41 ; Acute pain of right knee M25.561 ; Right foot pain M79.671 and Plantar neuroma of right foot G57.61 [facility] [employer] [place] [address] AVE [id number] [place], [place] 255810066 Jan, Dental examination Z01.20 [facility] [employer] [place] [address] A[address] [id number] [place] [id number] Dec, Anxiety associated with depression 300.4 [facility] [id number] [place], [place] 740641830 Dec, Anxiety associated with depression F41.8 ; Morbid (severe) obesity due to excess calories E66.01 and Sleep disturbance G47.[address] [facility] [address] [id number] [place] [address] Dec, Anxiety associated with depression F41.8 and Sleep disturbance G47.9 [facility] [address] [id number] [place], [place] [id number] Dec, [facility] [address] [id number] [place], [place] 939587659 Dec, Sleep disturbance G47.9 [facility] [address] [id number] [place] 41130[address] Nov, [facility] [address] [id number] [place], [place] 137781656 Nov, Morbid (severe) obesity due to excess calories E66.01 ; Sleep disturbance G47.9 ; Anxiety associated with depression F41.8 ; Pain in right knee M25.561 and Other chronic pain G89.29 [facility] [address] [id number] [place], [place] 358624329 Nov, [facility] [address] [id number] [place], [place] 752118877 Nov, [facility] [address] [id number] [place], [place] 246348467 Oct, Dental examination Z01.20 [facility] [address] [id number] [place], [place] 300529067 Oct, Dental examination Z01.20 [facility] [address] [place] [address] [id number], [place] [address]88[place] Sep, [facility] [address] [id number] [place], [place] [id number] Sep, Morbid (severe) obesity due to excess calories E66.01 ; Dietary counseling Z71.3 and Weight gain finding R63.5 [facility] [address] [id number] [place], [place] 191011288 Aug, [facility] [address] [id number] [place], [place] 046156900 Aug, Metabolic syndrome E88.81 ; Morbid (severe) obesity due to excess calories E66.01 and Anxiety associated with depression F41.[address] [facility] [address] [id number] [place], [place] 593259868 Aug, [facility] [address] [id number] [place], [place] 979526326 Aug, Eustachian tube dysfunction, right H69.81 and Right acute serous otitis media, recurrence not specified H65.[address] [facility] [address] [id number] [place], [place] 690668592 Jun, Sciatica, left side M54.[address] [facility] [address] [id number] [place], [place] 815456358 Jun, [facility] [address] [facility] [address] [id number] [place] [id number] Apr, [facility] [address] [id number] [place] [address]262838[address] Apr, [facility] [address] [id number] [place], [place] 242473652 Apr, Acute non-recurrent maxillary sinusitis J01.00 [facility] [address] [id number] [place], [place] 156686866 Apr, Acute non-recurrent maxillary sinusitis J01.[address] [facility] [address] [id number] [place], [place] 710748839 Mar, Sore throat J02.9 [facility] [address] [id number] [place], [place] 704279611 Feb, Quadriceps tendonitis M76.899 [facility] [address] [id number] [place], [place] 283037006 Feb, Abscess, abdomen K65.1 and Quadriceps tendonitis M76.899 [facility] [address] [id number] [place], [place] 995217782 Dec, Inflamed skin tag L91.8 [facility] [address] [id number] [place], [place] [id number] Oct, Sciatica neuralgia 724.3 [facility] [address] [id number] [place], [place] [id number] Oct, Low back strain 847.2 [facility] [place] [address] [facility][1] [id number], [place] [address]01567[address] Sep, [facility] [address] [id number] [place], [place] [id number] Aug, Urinary tract infection 599.0 [facility] [address]00565100[place], [place] [address] Jun, [facility] [address]00565100[place] [address] Jun, [facility] [address]00565100[place], [place] [address] Apr, [facility] [address]00565100[place], [place] 4157[place] Apr, [facility] [address]00565100[place], [place] [address] Mar, [facility] [address]65100[place] [address] Mar, [facility] [address] [id number] [address] Oct, [facility] [address] [facility] [id number], [place] [address]2083[address] Jun, [facility] [address] [facility] [id number], [place] 147935739 May, [facility] [address] [facility] [id number], [place] [id number] May, [facility] [address] [facility] [id number], [place] 869152427 Mar, IMMUNIZATIONS No Known Immunizations SOCIAL HISTORY Never Assessed REASON FOR VISIT el PLAN OF CARE Activity Details Follow Up prn Reason:filling VITAL SIGNS Blood pressure systolic 131 mmHg 2016-11-14 Blood pressure diastolic 81 mmHg 2016-11-14 MEDICATIONS Medication Instructions Dosage Frequency Start Date End Date Duration Status Lexapro 20 mg Orally Once a day 1 tablets 24h Active Prilosec 40 MG Orally Once a day 1 capsule 24h Active Contrave 8-90 MG Orally Twice a day 2 tablet 12h Aug, Mar, 90 days Active Seroquel 200 MG Orally Once a day 1 tablet at bedtime 24h Active RESULTS No Results PROCEDURES Procedure Date Ordered Result Body Site COMP ORAL EVALUATION - NEW/EST PT Nov 14, 2016 INSTRUCTIONS MEDICATIONS ADMINISTERED No Known Medications MEDICAL [...] foot arch surgeris X4 Hospitalization History appendicitis- [facility] Hospitalization History ER visit for shoulder pain 03/2016 Hospitalization History [facility] ER for lower back pain 01/2017
--- OUTSIDE RECORDS SUMMARY | 2018-05-29 08:39 | XMS REPORT ---
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 Name Role Phone TIERNEY HODGE Unavailable PROBLEMS Type Condition ICD9-CM Code GYP87-ZV Code Onset Dates Condition Status SNOMED Code Problem Morbid (severe) obesity due to excess calories E66.01 Active 822556976 Problem Metabolic syndrome E88.81 Active 898665344 Problem Anxiety associated with depression F41.8 Active 283163155 Problem Sciatica, left side M54.32 Active 77630736 ALLERGIES No Information SOCIAL HISTORY Never Assessed PLAN OF CARE VITAL SIGNS MEDICATIONS Medication Instructions Dosage Frequency Start Date End Date Duration Status ProAir HFA 108 (90 Base) MCG/ACT Inhalation every 4-6 hours as needed 1-2 puffs Apr, 0 days Active RESULTS No Results PROCEDURES No Known procedures IMMUNIZATIONS No Known Immunizations MEDICAL (GENERAL) HISTORY Type Description Date Medical [...]
--- OUTSIDE RECORDS SUMMARY | 2018-05-29 08:39 | XMS REPORT ---
Author Author MARGARITA WRIGHT [facility] Address [address] [place] [address] Care Team Providers Care Missileman Name Role Phone MARGARITA WRIGHT Unavailable PROBLEMS Type Condition ICD9-CM Code INZ07-AQ Code Onset Dates Condition Status SNOMED Code Problem Metabolic syndrome E88.81 Active 922811429 Problem Sciatica, left side M54.32 Active 16392992 Problem Plantar neuroma of right foot G57.61 Active 933405109 Problem Anxiety associated with depression 300.4 Active 859347485 Problem Anxiety associated with depression F41.8 Active 891776899 Problem Morbid (severe) obesity due to excess calories E66.01 Active 481615693 Problem Other chronic pain G89.29 Active 10619348 Problem Sleep disturbance G47.9 Active 29320034 ALLERGIES Substance Reaction Event Type Date Status Hydrocodone-Acetaminophen itching Drug Allergy Aug, Active Hydrocodone itching Non Drug Allergy Aug, Active ENCOUNTERS Encounter Location Date Diagnosis [facility] FRANCES [employer] [id number] [id number] Apr, [address] [id number], [place] 736943547 Apr, Pain in right knee M25.561 and Other chronic pain G89.[address] [id number], [place] 597141798 Apr, Weight gain R63.[address] [place] [facility] [id number] [place] [id number] Mar, Weight gain R63.5 ; Exercise counseling Z71.82 and BMI 40.0-44.9, adult Z68.41 [facility] [id number], [place] 005745907 Feb, Strep pharyngitis J02.0 [facility] [address] [facility] [address] [id number], [place] 562047[address] Jan, [facility] [address] [id number], [place] [id number] Jan, Anxiety associated with depression 300.4 [facility] FRANCES [address] [place] [address] AVE [id number], [place] 676892632 Jan, BMI 40.0-44.9, adult Z68.41 ; Acute pain of right knee M25.561 ; Right foot pain M79.671 and Plantar neuroma of right foot G57.61 [facility] [address] [place] [address] AVE [id number], [place] 622105055 Jan, Dental examination Z01.20 [facility] Ordonez [facility] AV [id number], [place] [id number] Dec, Anxiety associated with depression 300.4 [facility] [address] [id number], [place] 406856200 Dec, Anxiety associated with depression F41.8 ; Morbid (severe) obesity due to excess calories E66.01 and Sleep disturbance G47.9 [facility] [address] [facility] [address] [id number], [place] 5232718[address] Dec, Anxiety associated with depression F41.8 and Sleep disturbance G47.9 [facility] FR[address]FR[address]ES[address] [id number], [place] 429281149 Dec, [facility] Ordonez [facility] [address] [id number], [place] 144657754 Dec, Sleep disturbance G47.9 [facility] FRANCES [address] [place] [address] AVE [id number], [place] 457774889 Nov, [facility] [address] [id number], [place] [address]8087[address] Nov, Morbid (severe) obesity due to excess calories E66.01 ; Sleep disturbance G47.9 ; Anxiety associated with depression F41.8 ; Pain in right knee M25.561 and Other chronic pain G89.29 [facility] [address] [id number] [place] [id number] Nov, [facility] [address] [id number] [place] [address]88[address] Nov, [facility] [address] [id number], [place] 153027872 Oct, Dental examination Z01.20 [facility] [address] [id number], [place] [id number] Oct, Dental examination Z01.20 [facility] [address] [facility] [id number] [place] 330[place] Sep, [facility] [address] [id number], [place] 977138345 Sep, Morbid (severe) obesity due to excess calories E66.01 ; Dietary counseling Z71.3 and Weight gain finding R63.[address] [facility] [address] [id number], [place] 567802154 Aug, [facility] [address] [id number], [place] 7364543[address] Aug, Metabolic syndrome E88.81 ; Morbid (severe) obesity due to excess calories E66.01 and Anxiety associated with depression F41.[address] [facility] [address] [id number], [place] 306645499 Aug, [facility] [address] [id number], [place] 758677143 Aug, Eustachian tube dysfunction, right H69.81 and Right acute serous otitis media, recurrence not specified H65.[address] [facility] [address] [id number], [place] 499484075 Jun, Sciatica, left side M54.32 [facility] [address] [id number], [place] 3109268[address] Jun, [facility] [address] [id number], [place] 625318623 Apr, [facility] [address] [id number], [place] 616118106 Apr, [facility] [address] [id number], [place] [id number] Apr, Acute non-recurrent maxillary sinusitis J01.[address] [facility] [address] [id number], [place] 225943932 Apr, Acute non-recurrent maxillary sinusitis J01.[address] [facility] [address] [id number], [place] [id number] Mar, Sore throat J02.[address] [facility] [address] [id number], [place] 930402795 Feb, Quadriceps tendonitis M76.899 [facility] [address] [id number], [place] 387917850 Feb, Abscess, abdomen K65.1 and Quadriceps tendonitis M76.899 [facility] [address] [id number], [place] 025643128 Dec, Inflamed skin tag L91.8 [facility] [address] [id number], [place] 734251467 Oct, Sciatica neuralgia 724.3 [facility] [address] [id number], [place] 153905409 Oct, Low back strain 847.2 [facility] [place] [address] [facility] [id number], [place] [id number] Sep, [facility] [address] [id number], [place] [id number] Aug, Urinary tract infection 599.0 [facility] [address] [facility] [id number] [place] [address]- [address] Jun, [facility] [address] [facility] [id number] [place] [address]- [address] Jun, [facility] [address]005[address]100[place] [address]- [address] Apr, [facility] [address]00565100[place] [address]- [address] Apr, [facility] [address]00565100[place] [address] Mar, [facility] [address]00565100[place] [address]- [address] Mar, [facility] [address]100[place] [address] Oct, [facility] [id number] [place] [id number] Jun, [facility] [id number], [place] 995409667 May, [facility] [id number] [place] [id number] May, [facility] [id number], [place] 6[address]23[address] Mar, IMMUNIZATIONS No Known Immunizations SOCIAL HISTORY Never Assessed REASON FOR VISIT Earache-c/o right ear pain since yesterday. km boyd PLAN OF CARE Activity Details Follow Up prn Reason: VITAL SIGNS Height 64.5 in 2016-09-01 Weight 256.2 lbs 2016-09-01 Temperature 97.3 degrees Fahrenheit 2016-09-01 Heart Rate 92 bpm 2016-09-01 Respiratory Rate 18 2016-09-01 BMI 43.29 kg/m2 2016-09-01 Blood pressure systolic 116 mmHg 2016-09-01 Blood pressure diastolic 84 mmHg 2016-09-01 MEDICATIONS Medication Instructions Dosage Frequency Start Date End Date Duration Status Seroquel 200 MG Orally Once a day 1 tablet at bedtime 24h Active Flonase 50 MCG/ACT Nasally Once a day 1 spray in each nostril 24h Aug, 30 day(s) Active Pseudoephedrine HCl 30 MG Orally every 6 hrs 1 tablet as needed 6h Aug, Active Amoxicillin 500 mg Orally every 12 hrs 1 capsule 12h Aug, Aug, 10 day(s) Active Prilosec 40 MG Orally Once a day 1 capsule 24h Active Lexapro 20 mg Orally Once a day 2 tablets 24h Active RESULTS No Results PROCEDURES [...] foot arch surgeris X4 Hospitalization History appendicitis- [facility] Hospitalization History ER visit for shoulder pain 03/2016 Hospitalization History [facility] ER for lower back pain 01/2017
--- OUTSIDE RECORDS SUMMARY | 2018-05-29 08:39 | XMS REPORT ---
Author Author TIERNEY HODGE [facility] Address [address] [place] [address] Care Team Providers Care Network Security Officer Name Role Phone TIERNEY HODGE Unavailable PROBLEMS Type Condition ICD9-CM Code [id number] Code Onset Dates Condition Status SNOMED Code Problem Metabolic syndrome E88.81 Active 943040289 Problem Sciatica, left side M54.32 Active 94830437 Problem Plantar neuroma of right foot G57.61 Active 525240234 Problem Anxiety associated with depression 300.4 Active 198646501 Problem Anxiety associated with depression F41.8 Active 596654174 Problem Morbid (severe) obesity due to excess calories E66.01 Active 250270752 Problem Other chronic pain G89.29 Active 32076883 Problem Sleep disturbance G47.9 Active 98389162 ALLERGIES Substance Reaction Event Type Date Status Hydrocodone-Acetaminophen itching Drug Allergy Aug, Active Hydrocodone itching Non Drug Allergy Aug, Active ENCOUNTERS Encounter Location Date Diagnosis [address] [id number], [place] [id number] Apr, [address] [id number], [place] 193752564 Apr, Pain in right knee M25.561 and Other chronic pain G89.[address] [id number], [place] [id number] Apr, Weight gain R63.[address] [id number] [place] [id number] Mar, Weight gain R63.5 ; Exercise counseling Z71.82 and BMI 40.0-44.9, adult Z68.[address] [id number], [place] [id number] Feb, Strep pharyngitis J02.0 [facility] [address] [facility] [address] [id number], [place] [id number] Jan, [facility] [address] [facility] [address] [id number], [place] [id number] Jan, Anxiety associated with depression 300.4 [facility] [address] [place] [address] AVE [id number], [place] 520372384 Jan, BMI 40.0-44.9, adult Z68.41 ; Acute pain of right knee M25.561 ; Right foot pain M79.671 and Plantar neuroma of right foot G57.61 [facility] [facility] [id number], [place] [id number] Jan, Dental examination Z01.20 [facility] Cole[address] [place] [address] AV [id number], [place] [id number] Dec, Anxiety associated with depression 300.4 [facility] FRANKSFRANCES[address] [id number], [place] [id number] Dec, Anxiety associated with depression F41.8 ; Morbid (severe) obesity due to excess calories E66.01 and Sleep disturbance G47.9 [facility] FRANKSFRANCESMICHAEL [place] [address] [facility] AV [id number], [place] [id number] Dec, Anxiety associated with depression F41.8 and Sleep disturbance G47.9 [facility] [address] [place] [address] AVE [id number], [place] [id number] Dec, [facility] FRANCES [address] [place] [address] AVE [id number], [place] 120850182 Dec, Sleep disturbance G47.9 [facility] FRANCES [address] [place] [address] AVE [id number], [place] [id number] Nov, [facility] [facility] [id number], [place] 005681069 Nov, Morbid (severe) obesity due to excess calories E66.01 ; Sleep disturbance G47.9 ; Anxiety associated with depression F41.8 ; Pain in right knee M25.561 and Other chronic pain G89.29 [facility] [address] [id number], [place] [id number] Nov, [facility] [address] [id number], [place] [id number] Nov, [facility] [address] [id number], [place] [id number] Oct, Dental examination Z01.20 [facility] [address] [id number], [place] [id number] Oct, Dental examination Z01.20 [facility] [address] [facility] [id number], [place] [address] Sep, [facility] FRANCES [address] [place] [address] AVE [id number], [place] [id number] Sep, Morbid (severe) obesity due to excess calories E66.01 ; Dietary counseling Z71.3 and Weight gain finding R63.5 [facility] [address] [id number], [place] [id number] Aug, [facility] [address] [id number], [place] 910230143 Aug, Metabolic syndrome E88.81 ; Morbid (severe) obesity due to excess calories E66.01 and Anxiety associated with depression F41.8 [facility] [address] [id number], [place] [id number] Aug, [facility] [address] [id number], [place] 005951790 Aug, Eustachian tube dysfunction, right H69.81 and Right acute serous otitis media, recurrence not specified H65.01 [facility] [address] [id number], [place] 493104717 Jun, Sciatica, left side M54.32 [facility] [address] [id number], [place] [id number] Jun, [facility] [address] [id number], [place] [id number] Apr, [facility] [address] [id number], [place] [id number] Apr, [facility] [address] [id number], [place] 459247461 Apr, Acute non-recurrent maxillary sinusitis J01.[address] [facility] [address] [id number], [place] [id number] Apr, Acute non-recurrent maxillary sinusitis J01.[address] [facility] [address] [id number], [place] 645409463 Mar, Sore throat J02.[address] [facility] [address] [id number], [place] 516482927 Feb, Quadriceps tendonitis M76.899 [facility] [address] [id number], [place] [address]32915[address] Feb, Abscess, abdomen K65.1 and Quadriceps tendonitis M76.899 [facility] [address] [id number], [place] 519470306 Dec, Inflamed skin tag L91.8 [facility] [address] [id number], [place] [id number] Oct, Sciatica neuralgia 724.3 [facility] [address] [id number], [place] 961673416 Oct, Low back strain 847.2 [facility] [address] [facility] [id number] [place] [address] Sep, [facility] [address] [id number], [place] [id number] Aug, Urinary tract infection 599.0 [facility] [address] [facility] [id number], [place] [address]358[address] Jun, [facility] [address] [facility] [id number], [place] [address] Jun, [facility] [address]65[address], [place] [address] Apr, [facility] [address] [id number], [place] [address] Apr, [facility] [address]00565100[place], [place] [address] Mar, [facility] [address]00565100[place], [place] [address] Mar, [facility] [address]00565100[place], [place] [address] Oct, [facility] [id number] [place] [address] Jun, [facility] [id number] [place] [id number] May, [facility] [id number] [place] [id number] May, [facility] [id number] [place] [address] Mar, IMMUNIZATIONS No Known Immunizations SOCIAL HISTORY Never Assessed REASON FOR VISIT Establish Care bferrisma PLAN OF CARE Activity Details Follow Up 4 Weeks Reason:weight/contrave f/u VITAL SIGNS Height 64.5 in 2016-09-18 Weight 257.5 lbs 2016-09-18 Temperature 97.6 degrees Fahrenheit 2016-09-18 Heart Rate 78 bpm 2016-09-18 Respiratory Rate 18 2016-09-18 BMI 43.51 kg/m2 2016-09-18 Blood pressure systolic 138 mmHg 2016-09-18 Blood pressure diastolic 72 mmHg 2016-09-18 MEDICATIONS Medication Instructions Dosage Frequency Start Date End Date Duration Status Seroquel 200 MG Orally Once a day 1 tablet at bedtime 24h Active Prilosec 40 MG Orally Once a day 1 capsule 24h Active Contrave 8-90 MG Orally START - one tablet daily x1 week, then one tablet twice daily x2 weeks, then 2 tablets am and pm for goal dose. 1 tablet Aug, Active Lexapro 20 mg Orally Once a [...] foot arch surgeris X4 Hospitalization History appendicitis- [facility] Hospitalization History ER visit for shoulder pain 03/2016 Hospitalization History [facility] ER for lower back pain 01/2017
--- OUTSIDE RECORDS SUMMARY | 2018-05-29 08:40 | XMS REPORT ---
Author Author TIERNEY HODGE [facility] Address [address] [place] [address] Care Team Providers Care Scouring Pads Supervisor Name Role Phone TIERNEY HODGE Unavailable PROBLEMS Type Condition ICD9-CM Code RTN22-OB Code Onset Dates Condition Status SNOMED Code Problem Sciatica, left side M54.32 Active 01069616 Problem Morbid (severe) obesity due to excess calories E66.01 Active 203231858 Problem Metabolic syndrome E88.81 Active 825943910 Problem Hypertriglyceridemia E78.1 Active 482005693 Problem Plantar neuroma of right foot G57.61 Active 585329020 Problem Sleep disturbance G47.9 Active 62434988 Problem Anxiety associated with depression F41.8 Active 224833500 Problem Anxiety associated with depression 300.4 Active 957411426 Problem Other chronic pain G89.29 Active 55792133 ALLERGIES Substance Reaction Event Type Date Status Hydrocodone-Acetaminophen itching Drug Allergy Jan, Active Hydrocodone itching Non Drug Allergy Jan, Active ENCOUNTERS Encounter Location Date Diagnosis [address] [id number], [place] [id number] July, Sleep disturbance G47.9 ; Pain in left shoulder M25.512 ; Other chronic pain G89.29 and Left elbow pain M25.522 [facility] [address] [facility] [id number] [place] [address] July, [address] [id number], [place] 179677220 July, Well woman exam with routine gynecological exam Z01.419 ; Breast cancer screening Z12.31 and BMI 40.0-44.9, adult Z68.[address] [id number], [place] 242506354 Jun, Pain in right knee M25.561 ; Pain in left knee M25.562 ; Other chronic pain G89.29 ; Hypertriglyceridemia E78.1 ; Pain in right elbow M25.521 ; Pain in left elbow M25.522 and Family history of diabetes mellitus Z83.3 [facility] [address]Nak[address] [id number], [place] [address]114548 Jun, Pain in right knee M25.561 ; Pain in left knee M25.562 ; Other chronic pain G89.29 ; Pain in right elbow M25.521 ; Pain in left elbow M25.522 ; Hypertriglyceridemia E78.1 and Family history of diabetes mellitus Z83.3 [facility] IncorporatedNakul FR[address] [id number], [place] [id number] Apr, [facility] [address] [id number], [place] [id number] Apr, Pain in right knee M25.561 and Other chronic pain G89.29 [facility] IncorporatedNakul [address] [id number], [place] 0968725[address] Apr, Weight gain R63.5 [facility] IncorporatedK [address] [id number], [place] [id number] Mar, Weight gain R63.5 ; Exercise counseling Z71.82 and BMI 40.0-44.9, adult Z68.41 [facility] IncorporatedK [address] [id number], [place] [id number] Feb, Strep pharyngitis J02.0 [facility]ENTERDigonex TechnologiesTER [address] [id number], [place] 164946798 Jan, [facility] [address] [id number], [place] [id number] Jan, Anxiety associated with depression 300.4 [facility]ENTERDigonex TechnologiesTER [address] [id number], [place] 521795374 Jan, BMI 40.0-44.9, adult Z68.41 ; Acute pain of right knee M25.561 ; Right foot pain M79.671 and Plantar neuroma of right foot G57.61 [facility] [address] [id number] [place] [address] Jan, Dental examination Z01.20 [facility] [address] [id number], [place] 556259971 Dec, Anxiety associated with depression 300.4 [facility] [address] [id number], [place] [id number] Dec, Anxiety associated with depression F41.8 ; Morbid (severe) obesity due to excess calories E66.01 and Sleep disturbance G47.9 [facility] [address]ANI[address] [id number], [place] [address]67615212 Dec, Anxiety associated with depression F41.8 and Sleep disturbance G47.9 [facility] JU[address]ANI[address] [id number], [place] 848203772 Dec, [facility] UJAN DANIEL [address] [id number], [place] 421915586 Dec, Sleep disturbance G47.9 [facility] [address] [id number], [place] 337327727 Nov, [facility]ERSEN[facility]ul [address] [id number], [place] 823814083 Nov, Morbid (severe) obesity due to excess calories E66.01 ; Sleep disturbance G47.9 ; Anxiety associated with depression F41.8 ; Pain in right knee M25.561 and Other chronic pain G89.29 [facility] [address] [id number], [place] [id number] 13 Nov, 2016 [facility] [address] [id number], [place] 563123531 09 Nov, 2016 [facility] [address] [id number], [place] 957239190 Oct, Dental examination Z01.20 [facility] [address] [id number], [place] 623671836 Oct, Dental examination Z01.20 [facility] [address] [facility] [id number] [place] [address] Sep, [facility] [address] [id number], [place] 528076396 Sep, Morbid (severe) obesity due to excess calories E66.01 ; Dietary counseling Z71.3 and Weight gain finding R63.5 [facility] [address] [id number], [place] 046375268 Aug, [facility] [address] [id number], [place] [id number] Aug, Metabolic syndrome E88.81 ; Morbid (severe) obesity due to excess calories E66.01 and Anxiety associated with depression F41.8 [facility] JUAN DANIEL [address] [id number], [place] [id number] Aug, [facility] [address] [id number], [place] [id number] Aug, Eustachian tube dysfunction, right H69.81 and Right acute serous otitis media, recurrence not specified H65.01 [facility] [address] [id number], [place] 913406945 Jun, Sciatica, left side M54.32 [facility] [address] [id number], [place] 507601395 Jun, [facility] [address] [id number], [place] 110681612 Apr, [facility] [address] [id number], [place] 612533250 Apr, [facility] [address] [id number], [place] 744221599 Apr, Acute non-recurrent maxillary sinusitis J01.00 [facility] [address] [id number], [place] 379852769 Apr, Acute non-recurrent maxillary sinusitis J01.[address] [facility] [address] [id number], [place] [id number] Mar, Sore throat J02.[address] [facility] [address] [id number], [place] 332186769 Feb, Quadriceps tendonitis M76.899 [facility] [address] [id number], [place] 823295035 Feb, Abscess, abdomen K65.1 and Quadriceps tendonitis M76.[address] [facility] [address] [id number], [place] [id number] Dec, Inflamed skin tag L91.[address] [facility] [address] [id number], [place] [id number] Oct, Sciatica neuralgia 724.3 [facility] [address] [id number], [place] 918965048 Oct, Low back strain 847.2 [facility]Rob[facility] [place] [address] [facility] [id number], [place] 445846299 Sep, [facility] [address] [id number], [place] [id number] Aug, Urinary tract infection 599.0 [facility] [address] [id number], [place] [address] Jun, [facility] [address] [id number], [place] [address] Jun, [facility] [address] [id number], [place] [address] Apr, [facility] [address] [id number], [place] [address] Apr, [facility] [address] [id number], [place] [address] Mar, [facility] [address] [id number], [place] [address] Mar, [facility] [address] [facility] [id number] [place] [address] Oct, [facility] [address] [facility] [id number] [place] [address]91[address] Jun, [facility] [address] [facility] [id number] [place] 8[address]1539 May, [facility] [address] [facility] [id number], [place] 747805926 May, [facility] [address] [facility] [id number], [place] 76[address]10164 Mar, IMMUNIZATIONS No Known Immunizations SOCIAL HISTORY Never Assessed REASON FOR VISIT Right knee pain juan lee PLAN OF CARE Activity Details Follow Up prn Reason: VITAL SIGNS Height 64.5 in 2017-01-30 Weight 253.8 lbs 2017-01-30 Temperature 96.9 degrees Fahrenheit 2017-01-30 Heart Rate 74 bpm 2017-01-30 Respiratory Rate 18 2017-01-30 Oximetry 97 % 2017-01-30 BMI 42.89 kg/m2 2017-01-30 Blood pressure systolic 126 mmHg 2017-01-30 Blood pressure diastolic 80 mmHg 2017-01-30 MEDICATIONS Medication Instructions Dosage Frequency Start Date End Date Duration Status Ibuprofen 800 MG 1 capsule with food or milk as needed Active Lexapro 20 mg Orally Once a day 1 tablets 24h Active Seroquel 200 mg Orally Once a day 1 tablet at bedtime 24h Active Contrave 8-90 MG Orally Twice a day 2 tablet 12h Aug, Active Robaxin 500 MG Orally 3 times a day 1 tablets 8h Active Tramadol HCl 50 MG 1 tablet as needed Active Prilosec 20 mg Orally Once a day 1 capsule 24h 90 days Active RESULTS No Results PROCEDURES Procedure Date Ordered Result Body Site JOINT INJECTION-LARGE JOINT 2017-01-30 N/A X-RAY EXAM OF KNEE, 3 Jan 30, 2017 DRAIN/INJECT, JOINT/BURSA Jan 30, 2017 INSTRUCTIONS MEDICATIONS ADMINISTERED No Known Medications [...] right knee arthroscopy 07/2017 Hospitalization History appendicitis- [facility] Hospitalization History ER visit for shoulder pain 03/2016 Hospitalization History [facility] ER for lower back pain 01/2017
--- OUTSIDE RECORDS SUMMARY | 2018-05-29 08:40 | XMS REPORT ---
Author Author TERESA EUBANKS [facility] Address Unknown Phone Unavailable Care Team Providers Care Respiratory Physician Name Role Phone ANGELLAMADDYTERESA Unavailable Unavailable PROBLEMS Type Condition ICD9-CM Code ZOT06-NG Code Onset Dates Condition Status SNOMED Code Problem Sciatica, left side M54.32 Active 29778071 Problem Morbid (severe) obesity due to excess calories E66.01 Active 223726829 Problem Metabolic syndrome E88.81 Active 923524969 Problem Hypertriglyceridemia E78.1 Active 557771552 Problem Plantar neuroma of right foot G57.61 Active 615462689 Problem Sleep disturbance G47.9 Active 90782105 Problem Anxiety associated with depression F41.8 Active 209285460 Problem Anxiety associated with depression 300.4 Active 658660906 Problem Other chronic pain G89.29 Active 77006829 ALLERGIES No Information ENCOUNTERS Encounter Location Date Diagnosis [address] [id number] [id number] July, Sleep disturbance G47.9 ; Pain in left shoulder M25.512 ; Other chronic pain G89.29 and Left elbow pain M25.522 [facility] [address] [facility] [id number], [place] [address]2065[address] July, [address] [id number], [place] [address] July, Well woman exam with routine gynecological exam Z01.419 ; Breast cancer screening Z12.31 and BMI 40.0-44.9, adult Z68.41 [facility] [employer] [id number], [place] [address]19179894 18 Jun, 2017 Pain in right knee M25.561 ; Pain in left knee M25.562 ; Other chronic pain G89.29 ; Hypertriglyceridemia E78.1 ; Pain in right elbow M25.521 ; Pain in left elbow M25.522 and Family history of diabetes mellitus Z83.3 [facility] [address] [place] [address] AVE [id number], [place] 293526092 Jun, Pain in right knee M25.561 ; Pain in left knee M25.562 ; Other chronic pain G89.29 ; Pain in right elbow M25.521 ; Pain in left elbow M25.522 ; Hypertriglyceridemia E78.1 and Family history of diabetes mellitus Z83.3 [facility] [address] [place] [address] AVE [id number], [place] [id number] Apr, [facility] [address] [place] [address] AVE [id number], [place] 541102447 Apr, Pain in right knee M25.561 and Other chronic pain G89.29 [facility] [address] [place] [address] AVE [id number], [place] 463523[address] Apr, Weight gain R63.[address] [facility] [address] [id number], [place] [address] Mar, Weight gain R63.5 ; Exercise counseling Z71.82 and BMI 40.0-44.9, adult Z68.[address] [facility] [address] [id number], [place] [id number] Feb, Strep pharyngitis J02.[address] [facility] [address] [id number], [place] [address] Jan, [facility] [address] [id number], [place] 529876940 Jan, Anxiety associated with depression 300.[address] [facility] [address] [id number], [place] 063515004 Jan, BMI 40.0-44.9, adult Z68.41 ; Acute pain of right knee M25.561 ; Right foot pain M79.671 and Plantar neuroma of right foot G57.[address] [facility] [address] [id number], [place] 818512287 Jan, Dental examination Z01.20 [facility] [address] [id number] [place] [address] Dec, Anxiety associated with depression 300.[address] [facility] [address] [id number] [place] [address]28343395 Dec, Anxiety associated with depression F41.8 ; Morbid (severe) obesity due to excess calories E66.01 and Sleep disturbance G47.[address] [facility] [address] [id number], [place] 033662893 Dec, Anxiety associated with depression F41.8 and Sleep disturbance G47.9 [facility] [address] [id number], [place] [id number] Dec, [facility] [address] [id number], [place] 474228287 Dec, Sleep disturbance G47.9 [facility] [address] [id number], [place] 378461729 Nov, [facility] [address] [id number], [place] 610779805 Nov, Morbid (severe) obesity due to excess calories E66.01 ; Sleep disturbance G47.9 ; Anxiety associated with depression F41.8 ; Pain in right knee M25.561 and Other chronic pain G89.29 [facility] [address] [id number], [place] 499283973 Nov, [facility] [address] [id number], [place] 559525680 Nov, [facility] [address] [id number], [place] [id number] Oct, Dental examination Z01.20 [facility] [address] [id number], [place] 844658101 Oct, Dental examination Z01.20 [facility] [address] [facility] [id number] [place] [address] Sep, [facility] [address] [id number], [place] 132890774 Sep, Morbid (severe) obesity due to excess calories E66.01 ; Dietary counseling Z71.3 and Weight gain finding R63.[address] [facility] [address] [id number], [place] 176224643 Aug, [facility] [address] [id number], [place] 532984339 Aug, Metabolic syndrome E88.81 ; Morbid (severe) obesity due to excess calories E66.01 and Anxiety associated with depression F41.8 [facility] [address] [id number], [place] 170718249 Aug, [facility] [address] [id number], [place] 51129[address]83 Aug, Eustachian tube dysfunction, right H69.81 and Right acute serous otitis media, recurrence not specified H65.01 [facility] [address] [id number], [place] 038487766 Jun, Sciatica, left side M54.32 [facility] [address] [id number], [place] 963975249 Jun, [facility] [address] [id number], [place] [id number] Apr, [facility] [address] [id number], [place] 980294494 Apr, [facility] [address] [id number], [place] 110701694 Apr, Acute non-recurrent maxillary sinusitis J01.00 [facility] [address] [id number], [place] 138053175 Apr, Acute non-recurrent maxillary sinusitis J01.00 [facility] [address] [id number], [place] 533688590 Mar, Sore throat J02.9 [facility] [address] [id number], [place] 943681594 Feb, Quadriceps tendonitis M76.899 [facility] [address] [id number], [place] 511415656 Feb, Abscess, abdomen K65.1 and Quadriceps tendonitis M76.[address] [facility] [address] [id number], [place] 444850729 Dec, Inflamed skin tag L91.[address] [facility] [address] [id number], [place] 068572309 Oct, Sciatica neuralgia 724.3 [facility] [address] [id number], [place] 650214336 Oct, Low back strain 847.2 [facility] [place] [address] [facility] [id number] [place] 313183933 Sep, [facility] [address] [id number], [place] 804869404 Aug, Urinary tract infection 599.0 [facility] [address] [id number], [place] 309840[address] Jun, [facility] [address] [id number], [place] 339464- [address] Jun, [facility] [address] [id number], [place] [address] Apr, [facility] [address] [id number], [place] [address] Apr, [facility] [address] [id number], [place] 6[address] Mar, [facility] [address] [id number], [place] [address] Mar, [facility] [address] [facility] [id number], [place] [address] Oct, [facility] [address] [id number], [place] 389041679 Jun, [facility] [address] [facility] [id number] [place] [address]1370[address] May, [facility] [address] [facility] [id number] [place] [address] May, [facility] [address] [facility] [id number] [place] 084327721 Mar, IMMUNIZATIONS No Known Immunizations SOCIAL HISTORY Never Assessed REASON FOR VISIT f/u PLAN OF CARE Activity Details Follow Up Next available Reason: VITAL SIGNS MEDICATIONS Unknown Medications RESULTS No Results PROCEDURES Procedure Date Ordered Result Body Site Psychotherapy, patient &/family, 30 minutes, established patient Feb 12, 2017 INSTRUCTIONS MEDICATIONS ADMINISTERED No Known Medications [...] right knee arthroscopy 07/2017 Hospitalization History appendicitis- [facility] Hospitalization History ER visit for shoulder pain 03/2016 Hospitalization History [facility] ER for lower back pain 01/2017
--- OUTSIDE RECORDS SUMMARY | 2018-05-29 08:40 | XMS REPORT ---
Author Author TIERNEY HODGE [facility] Address [address] [place] [address] Care Team Providers Care Senior Etl Developer Name Role Phone TIERNEY HODGE Unavailable PROBLEMS Type Condition ICD9-CM Code DIT08-VO Code Onset Dates Condition Status SNOMED Code Problem Metabolic syndrome E88.81 Active 049723190 Problem Sciatica, left side M54.32 Active 65161622 Problem Plantar neuroma of right foot G57.61 Active 784913790 Problem Anxiety associated with depression 300.4 Active 835638726 Problem Anxiety associated with depression F41.8 Active 788709935 Problem Morbid (severe) obesity due to excess calories E66.01 Active 790336961 Problem Other chronic pain G89.29 Active 98374676 Problem Sleep disturbance G47.9 Active 24402670 ALLERGIES No Information ENCOUNTERS Encounter Location Date Diagnosis [address] [facility] [id number] [place] [address] Apr, [address] [id number] [place] 226891720 Apr, Pain in right knee M25.561 and Other chronic pain G89.[address] [id number] [place] 295526239 Apr, Weight gain R63.5 [address] [facility] [id number] [place] 688437317 Mar, Weight gain R63.5 ; Exercise counseling Z71.82 and BMI 40.0-44.9, adult Z68.41 [facility] Yadio [facility] [id number] [place] 970636773 Feb, Strep pharyngitis J02.[address] [id number] [place] 159921961 Jan, [facility] [address] [id number] [place] 972638220 Jan, Anxiety associated with depression 300.4 [facility] [address] [id number] [place] 002544794 07 Jan, 2017 BMI 40.0-44.9, adult Z68.41 ; Acute pain of right knee M25.561 ; Right foot pain M79.671 and Plantar neuroma of right foot G57.61 [facility] [address]AN [address]ANI[address] [id number] [place] 864643907 Jan, Dental examination Z01.20 [facility] [address] [id number] [place] 486507232 Dec, Anxiety associated with depression 300.4 [facility] [address] [id number] [place] 164057692 Dec, Anxiety associated with depression F41.8 ; Morbid (severe) obesity due to excess calories E66.01 and Sleep disturbance G47.9 [facility] [id number] [place] 027256467 Dec, Anxiety associated with depression F41.8 and Sleep disturbance G47.9 [facility] [address] [id number] [place] 947092467 Dec, [facility] [address] [id number] [place] 802243191 Dec, Sleep disturbance G47.9 [facility] [address] [id number] [place] 668143624 Nov, [facility] [address] [id number] [place] 783250165 Nov, Morbid (severe) obesity due to excess calories E66.01 ; Sleep disturbance G47.9 ; Anxiety associated with depression F41.8 ; Pain in right knee M25.561 and Other chronic pain G89.29 [facility] [address] [id number] [place] 820872219 Nov, [facility] [address] [id number] [place] 485093491 Nov, [facility] [address] [id number] [place] 892010910 Oct, Dental examination Z01.20 [facility] [address] [id number] [place] 410882667 Oct, Dental examination Z01.20 [facility] [address] [facility] [id number] [place] 56191940[address] Sep, [facility] [address] [id number] [place] 199958508 Sep, Morbid (severe) obesity due to excess calories E66.01 ; Dietary counseling Z71.3 and Weight gain finding R63.5 [facility] [address] [id number] [place] 159140991 Aug, [facility] [address] [id number] [place] 429001750 Aug, Metabolic syndrome E88.81 ; Morbid (severe) obesity due to excess calories E66.01 and Anxiety associated with depression F41.[address] [facility] [address] [id number] [place] 004972577 Aug, [facility] [address] [id number] [place] 998105286 Aug, Eustachian tube dysfunction, right H69.81 and Right acute serous otitis media, recurrence not specified H65.01 [facility] [address] [id number] [place] 307038628 Jun, Sciatica, left side M54.[address] [facility] [address] [id number] [place] 651428476 Jun, [facility] [address] [id number] [place] 918707162 Apr, [facility] [address] [id number] [place], [place] 447788880 Apr, [facility] [address] [id number] [place] 988652193 Apr, Acute non-recurrent maxillary sinusitis J01.[address] [facility] [address] [id number] [place] 328088607 Apr, Acute non-recurrent maxillary sinusitis J01.[address] [facility] [address] [id number] [place] 003987362 Mar, Sore throat J02.[address] [facility] [address] [id number] [place], [place] 930764902 Feb, Quadriceps tendonitis M76.899 [facility] [address] [id number] [place] 469904029 Feb, Abscess, abdomen K65.1 and Quadriceps tendonitis M76.[address] [facility] [address] [id number] [place] 451502772 Dec, Inflamed skin tag L91.[address] [facility] [address] [id number] [place], [place] 572881250 Oct, Sciatica neuralgia 724.3 [facility] [address] [id number] [place] 845181513 Oct, Low back strain 847.2 [facility] [place] [address] [facility] [id number], [place] 538432384 Sep, [facility] [address] [id number] [place] 240842995 Aug, Urinary tract infection 599.0 [facility] [address] [facility] [id number] [place] 05952586- [address] Jun, [place] [address] [facility] [id number] [place] [address] Jun, [facility] [address] [facility] [id number] [place] [address] Apr, [facility] [address] [id number] [address] Apr, [facility] [address] [id number] [address] Mar, [facility] [address] [id number] [address] Mar, [facility] [address] [id number] [address] Oct, [address]00565100[place], [place] 685[address]2373 Jun, [address]00565100[place], [place] [id number] May, [address]00565100[place], [place] [address] May, [address]65100[place], [place] 413[address]160 Mar, IMMUNIZATIONS No Known Immunizations SOCIAL HISTORY Never Assessed REASON FOR VISIT Requests return call PLAN OF CARE VITAL SIGNS MEDICATIONS Unknown [...] foot arch surgeris X4 Hospitalization History appendicitis- [facility] Hospitalization History ER visit for shoulder pain 03/[address] [facility] ER for lower back pain 01/2017
--- OUTSIDE RECORDS SUMMARY | 2018-05-29 08:40 | XMS REPORT ---
Author Author TIERNEY HODGE Organization [facility] Address [address] [place] [address] Care Team Providers Care Command And Control Name Role Phone TIERNEY HODGE Unavailable PROBLEMS Type Condition ICD9-CM Code NTQ00-SJ Code Onset Dates Condition Status SNOMED Code Problem Metabolic syndrome E88.81 Active 957012141 Problem Morbid (severe) obesity due to excess calories E66.01 Active 485660862 Problem Anxiety associated with depression F41.8 Active 686021723 Problem Sciatica, left side M54.32 Active 90465802 ALLERGIES Substance Reaction Event Type Date Status Hydrocodone itching Non Drug Allergy Feb, Active SOCIAL HISTORY No smoking Hx information available PLAN OF CARE Activity Details Follow Up prn Reason: VITAL SIGNS Height 63.5 in 2016-03-10 Weight 249 lbs 2016-03-10 Temperature 97.0 degrees Fahrenheit 2016-03-10 Heart Rate 90 bpm 2016-03-10 Respiratory Rate 16 2016-03-10 BMI 43.41 kg/m2 2016-03-10 Blood pressure systolic 116 mmHg 2016-03-10 Blood pressure diastolic 68 mmHg 2016-03-10 MEDICATIONS Medication Instructions Dosage Frequency Start Date End Date Duration Status Bactrim DS 800-160 MG Orally Twice a day 1 tablet 12h Feb,Feb 10 day(s) Active RESULTS No Results PROCEDURES Procedure Date Ordered Related Diagnosis Body Site Office Visit, Est Pt., Level 3 Mar 10, 2016 IMMUNIZATIONS No Known Immunizations
--- OUTSIDE RECORDS SUMMARY | 2018-05-29 08:40 | XMS REPORT ---
Author Author TIERNEY HODGE [facility] Address [address] [place] [address] Care Team Providers Care Cover Operator Name Role Phone TIERNEY HODGE Unavailable PROBLEMS Type Condition ICD9-CM Code JHV91-SL Code Onset Dates Condition Status SNOMED Code Problem Sciatica, left side M54.32 Active 21337402 Problem Morbid (severe) obesity due to excess calories E66.01 Active 070818744 Problem Metabolic syndrome E88.81 Active 177762771 Problem Hypertriglyceridemia E78.1 Active 293812804 Problem Plantar neuroma of right foot G57.61 Active 158388082 Problem Sleep disturbance G47.9 Active 96752875 Problem Anxiety associated with depression F41.8 Active 854259257 Problem Anxiety associated with depression 300.4 Active 293644899 Problem Other chronic pain G89.29 Active 14689986 ALLERGIES No Information ENCOUNTERS Encounter Location Date Diagnosis [address] [id number], [place] [id number] July, [address] [id number], [place] [address] Jun, Pain in right knee M25.561 ; Pain in left knee M25.562 ; Other chronic pain G89.29 ; Hypertriglyceridemia E78.1 ; Pain in right elbow M25.521 ; Pain in left elbow M25.522 and Family history of diabetes mellitus Z83.[address] [id number], [place] [address]2829774 Jun, Pain in right knee M25.561 ; Pain in left knee M25.562 ; Other chronic pain G89.29 ; Pain in right elbow M25.521 ; Pain in left elbow M25.522 ; Hypertriglyceridemia E78.1 and Family history of diabetes mellitus Z83.[address] [id number], [place] [address] Apr, [facility] [address] [id number], [place] [address]39[address] Apr, Pain in right knee M25.561 and Other chronic pain G89.29 [facility] JUAN DANIEL [address] [place] [address] AVE [id number], [place] 244546308 Apr, Weight gain R63.5 [facility] [address] [place] [address] AVE [id number], [place] [address]98[address]700 Mar, Weight gain R63.5 ; Exercise counseling Z71.82 and BMI 40.0-44.9, adult Z68.41 [facility] JUAN DANIEL [address] [place] [address] AVE [id number], [place] [address]2375[address] Feb, Strep pharyngitis J02.0 [facility] FR[address] [place] [address] AVE [id number], [place] [id number] Jan, [facility] [address] [place] [address] AVE [id number], [place] [address]3801221 Jan, Anxiety associated with depression 300.4 [facility] [address] [place] [address] AVE [id number], [place] 587020097 Jan, BMI 40.0-44.9, adult Z68.41 ; Acute pain of right knee M25.561 ; Right foot pain M79.671 and Plantar neuroma of right foot G57.61 [facility] [address] [id number], [place] [address]4574032 Jan, Dental examination Z01.20 [facility] FR[address] [place] [address] AVE [id number], [place] 366741778 Dec, Anxiety associated with depression 300.4 [facility] [address] [facility] [id number], [place] [address]471811 Dec, Anxiety associated with depression F41.8 ; Morbid (severe) obesity due to excess calories E66.01 and Sleep disturbance G47.9 [facility] [address] [id number] [place] [address] Dec, Anxiety associated with depression F41.8 and Sleep disturbance G47.9 [facility] [address] [id number], [place] [address]89[address] Dec, [facility] [address] [id number], [place] 6149036[address] Dec, Sleep disturbance G47.9 [facility] [address] [id number], [place] [address] Nov, [facility] [address] [id number], [place] [address]75944[address] Nov, Morbid (severe) obesity due to excess calories E66.01 ; Sleep disturbance G47.9 ; Anxiety associated with depression F41.8 ; Pain in right knee M25.561 and Other chronic pain G89.29 [facility] [address] [id number], [place] [address]88860991 Nov, [facility] [address] [id number], [place] [address]85[address] Nov, [facility] [address] [id number], [place] 294516291 Oct, Dental examination Z01.20 [facility] [address] [id number], [place] 390450339 Oct, Dental examination Z01.20 [facility] [address] [place] [address] [id number], [place] [address] Sep, [facility] [id number], [place] 51778[address]64 Sep, Morbid (severe) obesity due to excess calories E66.01 ; Dietary counseling Z71.3 and Weight gain finding R63.[address] [facility] [address] [id number], [place] 875554167 Aug, [facility] [address] [id number], [place] [address]32727993 Aug, Metabolic syndrome E88.81 ; Morbid (severe) obesity due to excess calories E66.01 and Anxiety associated with depression F41.[address] [facility] [address] [id number], [place] 573495457 Aug, [facility] [address] [id number], [place] 222153794 Aug, Eustachian tube dysfunction, right H69.81 and Right acute serous otitis media, recurrence not specified H65.[address] [facility] [address] [id number], [place] 075426498 Jun, Sciatica, left side M54.[address] [facility] [address] [id number], [place] 479346614 Jun, [facility] [address] [facility] [address] [id number], [place] 7699[address] Apr, [facility] [address] [id number], [place] 221991647 Apr, [facility] [address] [id number], [place] 798431275 Apr, Acute non-recurrent maxillary sinusitis J01.00 [facility] [address] [id number], [place] 769830862 Apr, Acute non-recurrent maxillary sinusitis J01.[address] [facility] [address] [id number], [place] 643916681 Mar, Sore throat J02.9 [facility] [address] [id number], [place] 950906667 Feb, Quadriceps tendonitis M76.899 [facility] [address] [id number], [place] 46963[address]97 Feb, Abscess, abdomen K65.1 and Quadriceps tendonitis M76.899 [facility] [address] [id number], [place] 256645171 Dec, Inflamed skin tag L91.8 [facility] [address] [id number], [place] 407352008 Oct, Sciatica neuralgia 724.3 [facility] [address] [id number], [place] [address]0153971 Oct, Low back strain 847.2 [facility] [address] [id number], [place] [address]93 Sep, [facility] [address] [id number], [place] 672805907 Aug, Urinary tract infection 599.0 [facility] [address]65100[place] [address]250[address] Jun, [facility] [address]00565100[place], [place] [address] Jun, [facility] [address]65100[place], [place] [address] Apr, [facility] [address]00565100[place], [place] [address] Apr, [facility] [address]00565100[place], [place] [address] Mar, [facility] [address]00565100[place], [place] [address] Mar, [facility] [address]65100[place], [place] [address]7517683[address] Oct, [facility] [place] [place] [address] [facility] [id number], [place] [address]19536 Jun, [facility] [address] [facility] [id number], [place] [address]302524 May, [facility] [address] [facility] [id number], [place] 130807222 May, [facility] [address] [id number], [place] [address]299604 Mar, IMMUNIZATIONS No Known Immunizations SOCIAL HISTORY Never Assessed REASON FOR VISIT c/o milagros not working PLAN OF CARE VITAL SIGNS MEDICATIONS Medication [...] foot arch surgeris X4 Hospitalization History appendicitis- [facility] Hospitalization History ER visit for shoulder pain 03/2016 Hospitalization History [facility] ER for lower back pain 01/2017
--- OUTSIDE RECORDS SUMMARY | 2018-05-29 08:40 | XMS REPORT ---
Author Author TIERNEY HODGE [facility] Address [address] [place] [address] Care Team Providers Care Event Marketing Manager Name Role Phone TIERNEY HODGE Unavailable PROBLEMS Type Condition ICD9-CM Code ITA36-OX Code Onset Dates Condition Status SNOMED Code Problem Sciatica, left side M54.32 Active 91318551 Problem Morbid (severe) obesity due to excess calories E66.01 Active 773298987 Problem Metabolic syndrome E88.81 Active 282927998 Problem Hypertriglyceridemia E78.1 Active 966884582 Problem Plantar neuroma of right foot G57.61 Active 244554608 Problem Sleep disturbance G47.9 Active 83318809 Problem Anxiety associated with depression F41.8 Active 269838660 Problem Anxiety associated with depression 300.4 Active 211736049 Problem Other chronic pain G89.29 Active 41122289 ALLERGIES No Information ENCOUNTERS Encounter Location Date Diagnosis [address] [id number], [place] [address] July, Sleep disturbance G47.9 ; Pain in left shoulder M25.512 ; Other chronic pain G89.29 and Left elbow pain M25.522 [facility] [address] [facility] [id number], [place] [address]907[address]75[address] July, [address] [id number], [place] [address]47866588 July, Well woman exam with routine gynecological exam Z01.419 ; Breast cancer screening Z12.31 and BMI 40.0-44.9, adult Z68.41 [facility] [employer] [address] [id number], [place] [address]6699752 18 Jun, 2017 Pain in right knee M25.561 ; Pain in left knee M25.562 ; Other chronic pain G89.29 ; Hypertriglyceridemia E78.1 ; Pain in right elbow M25.521 ; Pain in left elbow M25.522 and Family history of diabetes mellitus Z83.3 [facility] [employer] [address] [id number], [place] [address]35851005 Jun, Pain in right knee M25.561 ; Pain in left knee M25.562 ; Other chronic pain G89.29 ; Pain in right elbow M25.521 ; Pain in left elbow M25.522 ; Hypertriglyceridemia E78.1 and Family history of diabetes mellitus Z83.3 [facility] [employer] [address] [id number], [place] [address]70[address] Apr, [facility] [employer] [address] [id number], [place] 996981421 Apr, Pain in right knee M25.561 and Other chronic pain G89.29 [facility] [employer] [address] [id number], [place] 878355709 Apr, Weight gain R63.5 [facility] [employer] [address] [id number], [place] 857107516 Mar, Weight gain R63.5 ; Exercise counseling Z71.82 and BMI 40.0-44.9, adult Z68.41 [facility] [address] [id number], [place] [id number] Feb, Strep pharyngitis J02.0 [facility] [employer] [address] [id number], [place] 569207406 Jan, [facility] [employer] [address] [id number], [place] 182579971 Jan, Anxiety associated with depression 300.4 [facility] [id number], [place] 240142880 Jan, BMI 40.0-44.9, adult Z68.41 ; Acute pain of right knee M25.561 ; Right foot pain M79.671 and Plantar neuroma of right foot G57.61 [facility] [address] [id number] [place] 940688778 Jan, Dental examination Z01.[address] [facility] [address] [id number] [place] 536925216 Dec, Anxiety associated with depression 300.[address] [facility] [address] [id number] [place] 8042032[address] Dec, Anxiety associated with depression F41.8 ; Morbid (severe) obesity due to excess calories E66.01 and Sleep disturbance G47.[address] [facility] [address] [id number], [place] 627733967 Dec, Anxiety associated with depression F41.8 and Sleep disturbance G47.[address] [facility] [address] [id number], [place] 212727211 Dec, [facility] [address] [id number], [place] 480511871 Dec, Sleep disturbance G47.[address] [facility] [address] [id number], [place] 672319461 Nov, [facility] [address] [address] [id number], [place] 970296772 Nov, Morbid (severe) obesity due to excess calories E66.01 ; Sleep disturbance G47.9 ; Anxiety associated with depression F41.8 ; Pain in right knee M25.561 and Other chronic pain G89.[address] [facility] [address] [id number], [place] 138275314 Nov, [facility] [address] [id number], [place] 715642478 Nov, [facility] [address] [address] [id number], [place] 624969690 Oct, Dental examination Z01.[address] [facility] [address] [id number], [place] 075174712 Oct, Dental examination Z01.20 [facility] [address] [facility] [id number], [place] [address] Sep, [facility] [address] [address] [id number], [place] 925509918 Sep, Morbid (severe) obesity due to excess calories E66.01 ; Dietary counseling Z71.3 and Weight gain finding R63.[address] [facility] [address] [id number], [place] 954345356 Aug, [facility] [address] [address] [id number], [place] 328168246 Aug, Metabolic syndrome E88.81 ; Morbid (severe) obesity due to excess calories E66.01 and Anxiety associated with depression F41.[address] [facility] [address] [id number], [place] [id number] Aug, [facility] [address] [address] [id number], [place] 466070212 Aug, Eustachian tube dysfunction, right H69.81 and Right acute serous otitis media, recurrence not specified H65.01 [facility] [address] [id number], [place] 464168901 Jun, Sciatica, left side M54.[address] [facility] [address] [id number], [place] 283461702 Jun, [facility] [address] [address] [id number], [place] 355921227 Apr, [facility] [address] [address] [id number], [place] 927886823 Apr, [facility] [address] [address] [id number], [place] 911263910 Apr, Acute non-recurrent maxillary sinusitis J01.[address] [facility] [address] [id number], [place] 089081576 Apr, Acute non-recurrent maxillary sinusitis J01.[address] [facility] [address] [id number], [place] 209985412 Mar, Sore throat J02.[address] [facility] [address] [id number], [place] 445212299 Feb, Quadriceps tendonitis M76.8[address] [facility] [address] [id number], [place] 369905773 Feb, Abscess, abdomen K65.1 and Quadriceps tendonitis M76.8[address] [facility] [address] [id number], [place] 293305496 Dec, Inflamed skin tag L91.[address] [facility] [address] [id number], [place] 027663629 Oct, Sciatica neuralgia 724.3 [facility] [address] [address] [id number], [place] 470283811 Oct, Low back strain 847.2 [facility] [place] [address] [id number], [place] 669948162 Sep, [facility] [address] [address] [id number], [place] 250698125 Aug, Urinary tract infection 599.0 [facility] [address]00565100[place], [place] [address] Jun, [facility] [address]00565100[place], [place] [address] Jun, [facility] [address]00565100[place], [place] [address] Apr, [facility] [address]00565100[place], [place] [address] Apr, [facility] [id number] [place] [address] Mar, [facility] [address]00565100[place], [place] [address]- [address] Mar, [facility] [id number] [place] [address]- [address] Oct, [facility] [address] [facility] [id number] [place] 313[address]66 Jun, [facility] 120 [facility] [id number], [place] 137598975 May, [facility] 120 [facility] [id number] [place] [address] May, [address] [id number], [place] 061628833 Mar, IMMUNIZATIONS No Known Immunizations SOCIAL HISTORY Never Assessed REASON FOR VISIT medication PLAN OF CARE VITAL SIGNS MEDICATIONS Medication Instructions Dosage Frequency Start Date End Date Duration Status Diethylpropion HCl ER 75 MG Orally Once a day- am 1 tablet Mar, Active RESULTS No Results PROCEDURES No Known [...] visit for shoulder pain 03/2016 Hospitalization History [facility] ER for lower back pain 01/2017
--- OUTSIDE RECORDS SUMMARY | 2018-05-29 08:41 | XMS REPORT ---
Author Author TIERNEY HODGE Organization [facility] Address [address] [place] [address] Care Team Providers Care Rehabilitation Manager Name Role Phone TIERNEY HODGE Unavailable PROBLEMS Type Condition ICD9-CM Code REK37-UH Code Onset Dates Condition Status SNOMED Code Problem Metabolic syndrome E88.81 Active 058413645 Problem Morbid (severe) obesity due to excess calories E66.01 Active 469143140 Problem Anxiety associated with depression F41.8 Active 028016097 Problem Sciatica, left side M54.32 Active 88242392 ALLERGIES Substance Reaction Event Type Date Status Hydrocodone-Acetaminophen itching Drug Allergy Feb, Active SOCIAL HISTORY No smoking Hx information available PLAN OF CARE VITAL SIGNS Height 64.5 in 2016-03-10 Weight 249 lbs 2016-03-10 Temperature 97.9 degrees Fahrenheit 2016-03-10 Heart Rate 90 bpm 2016-03-10 Respiratory Rate 16 2016-03-10 BMI 42.08 kg/m2 2016-03-10 Blood pressure systolic 116 mmHg 2016-03-10 Blood pressure diastolic 68 mmHg 2016-03-10 MEDICATIONS Medication Instructions Dosage Frequency Start Date End Date Duration Status Bactrim DS 800-160 MG Orally Twice a day 1 tablet 12h Feb,Feb 10 day(s) Active Seroquel 200 MG Orally Once a day 1 tablet at bedtime 24h Active Lexapro 20 mg Orally Once a day 2 tablets 24h Active Prilosec 40 MG Orally Once a day 1 capsule 24h Active RESULTS No Results PROCEDURES No Known procedures IMMUNIZATIONS No Known Immunizations
--- OUTSIDE RECORDS SUMMARY | 2018-05-29 08:41 | XMS REPORT ---
Author Author TIERNEY HODGE [facility] Address [address] [place] [address] Care Team Providers Care Stave Saw Operator Name Role Phone TIERNEY HODGE Unavailable PROBLEMS Type Condition ICD9-CM Code MUA53-VX Code Onset Dates Condition Status SNOMED Code Problem Sciatica, left side M54.32 Active 58138152 Problem Morbid (severe) obesity due to excess calories E66.01 Active 746600964 Problem Metabolic syndrome E88.81 Active 329780488 Problem Hypertriglyceridemia E78.1 Active 618934097 Problem Plantar neuroma of right foot G57.61 Active 173497956 Problem Sleep disturbance G47.9 Active 46562494 Problem Anxiety associated with depression F41.8 Active 411356228 Problem Anxiety associated with depression 300.4 Active 664584406 Problem Other chronic pain G89.29 Active 18027548 ALLERGIES Substance Reaction Event Type Date Status Hydrocodone-Acetaminophen itching Drug Allergy Mar, Active Hydrocodone itching Non Drug Allergy Mar, Active ENCOUNTERS Encounter Location Date Diagnosis [address] [id number], [place] [id number] July, Sleep disturbance G47.9 ; Pain in left shoulder M25.512 ; Other chronic pain G89.29 and Left elbow pain M25.522 [facility] [address] [facility] [place] [id number] [place] [address] July, [address] [id number], [place] [address] July, Well woman exam with routine gynecological exam Z01.419 ; Breast cancer screening Z12.31 and BMI 40.0-44.9, adult Z68.[address] [id number], [place] [address] Jun, Pain in right knee M25.561 ; Pain in left knee M25.562 ; Other chronic pain G89.29 ; Hypertriglyceridemia E78.1 ; Pain in right elbow M25.521 ; Pain in left elbow M25.522 and Family history of diabetes mellitus Z83.3 [facility] [address] [address] [id number], [place] [address] Jun, Pain in right knee M25.561 ; Pain in left knee M25.562 ; Other chronic pain G89.29 ; Pain in right elbow M25.521 ; Pain in left elbow M25.522 ; Hypertriglyceridemia E78.1 and Family history of diabetes mellitus Z83.3 [facility] GroupNakul [address] [id number], [place] [address] Apr, [facility] [address] [id number], [place] [address] Apr, Pain in right knee M25.561 and Other chronic pain G89.29 [facility] GroupN[facility] [address] [id number], [place] [address] Apr, Weight gain R63.5 [facility] GroupK [address] [id number], [place] [address] Mar, Weight gain R63.5 ; Exercise counseling Z71.82 and BMI 40.0-44.9, adult Z68.41 [facility] GroupK [address] [id number], [place] [address] Feb, Strep pharyngitis J02.0 [facility]ALSEComCrowdFRANCES [address] [id number], [place] [id number] Jan, [facility] [address] [id number], [place] [address] Jan, Anxiety associated with depression 300.4 [facility]ITALPerMicroTER [address] [id number], [place] [address] Jan, BMI 40.0-44.9, adult Z68.41 ; Acute pain of right knee M25.561 ; Right foot pain M79.671 and Plantar neuroma of right foot G57.61 [facility] [address] [id number] [place] [address] Jan, Dental examination Z01.20 [facility]ALSEN[facility] [address] [id number], [place] [address] Dec, Anxiety associated with depression 300.4 [facility] [address] [id number], [place] [address] Dec, Anxiety associated with depression F41.8 ; Morbid (severe) obesity due to excess calories E66.01 and Sleep disturbance G47.9 [facility] [address] [id number], [place] [address] Dec, Anxiety associated with depression F41.8 and Sleep disturbance G47.9 [facility] [address] [id number], [place] [address] Dec, [facility] [address] [id number], [place] [address] Dec, Sleep disturbance G47.9 [facility] [address] [id number], [place] [address]58[address] Nov, [facility] [address] [id number], [place] [address]387 Nov, Morbid (severe) obesity due to excess calories E66.01 ; Sleep disturbance G47.9 ; Anxiety associated with depression F41.8 ; Pain in right knee M25.561 and Other chronic pain G89.29 [facility] [address] [id number], [place] [address] 13 Nov, 2016 [facility] [address] [id number], [place] [id number] 09 Nov, 2016 [facility] [address] [id number], [place] [address] Oct, Dental examination Z01.20 [facility] [address] [id number], [place] [address] Oct, Dental examination Z01.20 [facility] [address] [facility] [place] [id number] [place] [address] Sep, [facility] [address] [id number], [place] [address] Sep, Morbid (severe) obesity due to excess calories E66.01 ; Dietary counseling Z71.3 and Weight gain finding R63.5 [facility] [address] [id number], [place] [id number] Aug, [facility] [address] [id number], [place] [address] Aug, Metabolic syndrome E88.81 ; Morbid (severe) obesity due to excess calories E66.01 and Anxiety associated with depression F41.8 [facility] [address] [id number], [place] [address] Aug, [facility] [address] [id number], [place] [address] Aug, Eustachian tube dysfunction, right H69.81 and Right acute serous otitis media, recurrence not specified H65.01 [facility] [address] [id number], [place] [address] Jun, Sciatica, left side M54.32 [facility] [address] [id number], [place] [address] Jun, [facility] [address] [id number], [place] [address] Apr, [facility] [address] [id number], [place] [address] Apr, [facility] [address] [id number], [place] [address] Apr, Acute non-recurrent maxillary sinusitis J01.00 [facility] [address] [id number], [place] 229[address]243 Apr, Acute non-recurrent maxillary sinusitis J01.[address] [facility] [address] [id number], [place] [address]12554352 Mar, Sore throat J02.[address] [facility] [address] [id number], [place] [address]288359 Feb, Quadriceps tendonitis M76.899 [facility] [address] [id number], [place] 169[address] Feb, Abscess, abdomen K65.1 and Quadriceps tendonitis M76.[address] [facility] [address] [id number], [place] 501[address]234 Dec, Inflamed skin tag L91.[address] [facility] [address] [id number], [place] [address]13[address] Oct, Sciatica neuralgia 724.3 [facility] [address] [id number], [place] [address] Oct, Low back strain 847.2 [facility] [address] [facility] [id number] [place] [address] Sep, [facility] [address] [id number], [place] [address]142347 Aug, Urinary tract infection 599.0 [facility] [address] [id number], [place] [address] Jun, [facility] [address] [id number], [place] [address] Jun, [facility] [address] [id number], [place] [address] Apr, [facility] [address]00565100[place], [place] [address] Apr, [facility] [address] [id number], [place] [address] Mar, [facility] [address] [id number], [place] [address] Mar, [facility] [address] [facility] [place] [id number] [place] [address] Oct, [facility] [address] [facility] [id number] [place] [id number] Jun, [facility] [address] [facility] [id number] [place] [address] May, [facility] [address] [facility] [id number], [place] [address] May, [facility] [address] [facility] [id number], [place] [address] Mar, IMMUNIZATIONS No Known Immunizations SOCIAL HISTORY Never Assessed REASON FOR VISIT Weight management Ki GARCÍA PLAN OF CARE Activity Details Follow Up 4 Weeks Reason:weight VITAL SIGNS Height 64.5 in 2017-04-20 Weight 261.2 lbs 2017-04-20 Temperature 97.7 degrees Fahrenheit 2017-04-20 Heart Rate 68 bpm 2017-04-20 Respiratory Rate 17 2017-04-20 BMI 44.14 kg/m2 2017-04-20 Blood pressure systolic 138 mmHg 2017-04-20 Blood pressure diastolic 86 mmHg 2017-04-20 MEDICATIONS Medication Instructions Dosage Frequency Start Date End Date Duration Status Diethylpropion HCl ER 75 MG Orally Once a day- am 1 tablet Mar, Active Prilosec 20 mg Orally Once a [...] visit for shoulder pain 03/2016 Hospitalization History [facility] for lower back pain 01/2017
--- OUTSIDE RECORDS SUMMARY | 2018-05-29 08:41 | XMS REPORT ---
Author Author TIERNEY HODGE [facility] Address [address] [place] [address] Care Team Providers Care Solid Waste Division Supervisor Name Role Phone TIERNEY HODGE Unavailable PROBLEMS Type Condition ICD9-CM Code HJB58-BJ Code Onset Dates Condition Status SNOMED Code Problem Metabolic syndrome E88.81 Active 509129103 Problem Sciatica, left side M54.32 Active 97462868 Problem Plantar neuroma of right foot G57.61 Active 273194890 Problem Anxiety associated with depression 300.4 Active 595385199 Problem Anxiety associated with depression F41.8 Active 647443458 Problem Morbid (severe) obesity due to excess calories E66.01 Active 376807375 Problem Other chronic pain G89.29 Active 63916475 Problem Sleep disturbance G47.9 Active 87120901 ALLERGIES No Information ENCOUNTERS Encounter Location Date Diagnosis [place] [facility] Xradia0 [facility] [id number] [place]ASE [place] [id number] Jun, [place] [address] [id number] [place]ASE [place] [address] Apr, [place] [address] [id number] [place]ASE [place] [address] Apr, Pain in right knee M25.561 and Other chronic pain G89.[address] [id number] BASE [place] [address] Apr, Weight gain R63.[address] [id number] [place] [id number] Mar, Weight gain R63.5 ; Exercise counseling Z71.82 and BMI 40.0-44.9, adult Z68.41 [place] [facility] Porphyrio [facility] [id number] [place] [id number] Feb, Strep pharyngitis J02.0 [facility] Or[address] [facility] [address] [id number] BASE [place] [address] Jan, [facility] [address] [facility] [address] [id number] BASE [place] [address] Jan, Anxiety associated with depression 300.4 [facility] [address] [id number] BASE [place] [address] Jan, BMI 40.0-44.9, adult Z68.41 ; Acute pain of right knee M25.561 ; Right foot pain M79.671 and Plantar neuroma of right foot G57.61 [facility] Or[address] [facility] [address] [id number] [place]ASE [place] [address] Jan, Dental examination Z01.20 [facility] Or[address]z [facility] AV [id number] BASE [place] [id number] Dec, Anxiety associated with depression 300.4 [facility] [address] [place] [address] AVE [id number] [place]ASE [place] 76236[address] Dec, Anxiety associated with depression F41.8 ; Morbid (severe) obesity due to excess calories E66.01 and Sleep disturbance G47.9 [facility] Ordonez [facility] AV [id number] BASE [place] [address]40857[address] Dec, Anxiety associated with depression F41.8 and Sleep disturbance G47.9 [facility] Ordonez [facility] [address] [id number] [place]ASE [place] [id number] Dec, [facility] Ordone[address] [facility] [address] [id number] BASE [place] 105047554 Dec, Sleep disturbance G47.9 [facility] [address] [id number] BASE [place] 117[address]95948 Nov, [facility] Or[address] [facility] [address] [id number] [place]ASE [place] [address] Nov, Morbid (severe) obesity due to excess calories E66.01 ; Sleep disturbance G47.9 ; Anxiety associated with depression F41.8 ; Pain in right knee M25.561 and Other chronic pain G89.29 [facility] [address] [id number] [place]ASE [place] [address] Nov, [facility] [address] [id number] [place]ASE [place] 793110756 Nov, [facility] [address] [id number] [place]ASE [place] 599862194 Oct, Dental examination Z01.20 [facility] [address] [id number] [place]ASE [place] 710870676 Oct, Dental examination Z01.20 [facility] [address] [facility] [id number][place] [address] Sep, [facility] [address] [id number] [place]ASE [place] 449840[address] Sep, Morbid (severe) obesity due to excess calories E66.01 ; Dietary counseling Z71.3 and Weight gain finding R63.5 [facility] [address] [id number] [place]ASE [place] 835162288 Aug, [facility] [address] [id number] [place]ASE [place] [id number] Aug, Metabolic syndrome E88.81 ; Morbid (severe) obesity due to excess calories E66.01 and Anxiety associated with depression F41.8 [facility] [address] [id number] [place]ASE [place] [id number] Aug, [facility] [address] [id number] [place]ASE [place] [id number] Aug, Eustachian tube dysfunction, right H69.81 and Right acute serous otitis media, recurrence not specified H65.01 [facility] [address] [id number] [place]ASE [place] 544644017 Jun, Sciatica, left side M54.32 [facility] [address] [id number] [place]ASE [place] 783985587 Jun, [facility] [address] [id number] [place]ASE [place] [id number] 16 Apr, [address] [facility] [address] [id number] [place]ASE [place] 890264[address] Apr, [facility] [address] [id number] [place]ASE [place] 809237189 Apr, Acute non-recurrent maxillary sinusitis J01.[address] [facility] [address] [id number] [place]ASE [place] 48[address] Apr, Acute non-recurrent maxillary sinusitis J01.[address] [facility] [address] [id number] [place]ASE [place] [address]01427[address] Mar, Sore throat J02.[address] [facility] [address] [id number] [place]ASE [place] [address] Feb, Quadriceps tendonitis M76.899 [facility] [address] [id number] [place]ASE [place] [address] Feb, Abscess, abdomen K65.1 and Quadriceps tendonitis M76.899 [facility] [address] [id number] [place]ASE [place] 634468376 Dec, Inflamed skin tag L91.8 [facility] [address] [id number] [place]ASE [place] 727[address] Oct, Sciatica neuralgia 724.3 [facility] [address] [id number] [place]ASE [place] 380668715 Oct, Low back strain 847.2 [facility]CHCSEK [facility] [address] [facility] [id number], [place] 645550331 Sep, [facility] [address] [id number] [place]ASE [place] 237[address] Aug, Urinary tract infection 599.0 [facility] [address] [id number], [place] 31516839- [address] Jun, [facility] [address] [id number] [address] Jun, [facility] [address] [id number] [address] Apr, [facility] [address] [id number] [address] Apr, [facility] [address] [id number] [address] Mar, [facility] [address]00565100[place] [address] Mar, [facility] [address] [id number], [place] [address] Oct, [id number] [address] Jun, [id number] [address] May, [id number] [address] May, [address]00565100[place] [address] Mar, IMMUNIZATIONS No Known Immunizations SOCIAL HISTORY Never Assessed REASON FOR VISIT [facility] PLAN OF CARE VITAL SIGNS MEDICATIONS Unknown [...] visit for shoulder pain 03/2016 Hospitalization History [facility] for lower back pain 01/2017
--- OUTSIDE RECORDS SUMMARY | 2018-05-29 08:41 | XMS REPORT ---
Author Author TIERNEY HODGE [facility] Address [address] [place] [address] Care Team Providers Care Drafting Teacher Name Role Phone TIERNEY HODGE Unavailable PROBLEMS Type Condition ICD9-CM Code ASA08-DC Code Onset Dates Condition Status SNOMED Code Problem Morbid (severe) obesity due to excess calories E66.01 Active 213520774 Problem Metabolic syndrome E88.81 Active 950281538 Problem Anxiety associated with depression F41.8 Active 627629165 Problem Sciatica, left side M54.32 Active 07250898 ALLERGIES Substance Reaction Event Type Date Status Hydrocodone-Acetaminophen itching Drug Allergy Mar, Active Hydrocodone itching Non Drug Allergy Mar, Active SOCIAL HISTORY No smoking Hx information available PLAN OF CARE Activity Details Follow Up prn Reason: VITAL SIGNS Height 64.5 in 2016-04-22 Weight 248.4 lbs 2016-04-22 Temperature 96.9 degrees Fahrenheit 2016-04-22 Heart Rate 90 bpm 2016-04-22 Respiratory Rate 18 2016-04-22 BMI 41.97 kg/m2 2016-04-22 Blood pressure systolic 120 mmHg 2016-04-22 Blood pressure diastolic 76 mmHg 2016-04-22 MEDICATIONS Medication Instructions Dosage Frequency Start Date End Date Duration Status Prilosec 40 MG Orally Once a day 1 capsule 24h Active Tramadol HCl 50 MG Orally every 6 hrs 1 tablet as needed 6h Active Seroquel 200 MG Orally Once a day 1 tablet at bedtime 24h Active Lexapro 20 mg Orally Once a day 2 tablets 24h Active RESULTS Name Result Date Reference Range STREP A (IN HOUSE) 2016-04-22 STREP A negative Control positive Lot # [id number] Exp date 01/04/18 PROCEDURES Procedure Date Ordered Related Diagnosis Body Site STREP A ASSAY W/OPTIC Apr 22, 2016 Office Visit, Est Pt., Level 3 Apr 22, 2016 IMMUNIZATIONS No Known Immunizations
--- OUTSIDE RECORDS SUMMARY | 2018-05-29 08:41 | XMS REPORT ---
Author Author TIERNEY HODGE [facility] Address [address] [place] [address] Care Team Providers Care Repairer Controller Tester Name Role Phone TEIRNEY HODGE Unavailable PROBLEMS Type Condition ICD9-CM Code ZUW88-MW Code Onset Dates Condition Status SNOMED Code Problem Sciatica, left side M54.32 Active 99609725 Problem Morbid (severe) obesity due to excess calories E66.01 Active 763316753 Problem Metabolic syndrome E88.81 Active 143400256 Problem Hypertriglyceridemia E78.1 Active 920477558 Problem Plantar neuroma of right foot G57.61 Active 632717456 Problem Sleep disturbance G47.9 Active 19348673 Problem Anxiety associated with depression F41.8 Active 432895094 Problem Anxiety associated with depression 300.4 Active 549974932 Problem Other chronic pain G89.29 Active 28296728 ALLERGIES Substance Reaction Event Type Date Status Hydrocodone-Acetaminophen itching Drug Allergy Nov, Active Hydrocodone itching Non Drug Allergy Nov, Active ENCOUNTERS Encounter Location Date Diagnosis [facility] JUAN DANIEL [address] [place] [address] AVE [id number], [place] [id number] July, [facility] [address] [id number], [place] [address] Jun, Pain in right knee M25.561 ; Pain in left knee M25.562 ; Other chronic pain G89.29 ; Hypertriglyceridemia E78.1 ; Pain in right elbow M25.521 ; Pain in left elbow M25.522 and Family history of diabetes mellitus Z83.3 [facility] [address] [id number], [place] [address] Jun, Pain in right knee M25.561 ; Pain in left knee M25.562 ; Other chronic pain G89.29 ; Pain in right elbow M25.521 ; Pain in left elbow M25.522 ; Hypertriglyceridemia E78.1 and Family history of diabetes mellitus Z83.3 [facility] [address] [id number], [place] [address] Apr, [facility] [address] [id number], [place] [address]397375[address] Apr, Pain in right knee M25.561 and Other chronic pain G89.29 [facility] FRANCES [employer] [address] [employer] [place] [address] AVE [id number], [place] [id number] Apr, Weight gain R63.5 [facility] [employer] [address] [employer] [place] [address] A[address] [id number], [place] [address]742890 Mar, Weight gain R63.5 ; Exercise counseling Z71.82 and BMI 40.0-44.9, adult Z68.41 [facility] [address] [employer] [place] [address] A[address] [id number], [place] [id number] Feb, Strep pharyngitis J02.0 [facility]FR[facility] [address] [employer] [place] [address] A[address] [id number], [place] [id number] Jan, [facility] [address] [employer] [place] [address] AVE [id number], [place] 388516092 Jan, Anxiety associated with depression 300.4 [facility] [address] [id number], [place] [address]198187[address] Jan, BMI 40.0-44.9, adult Z68.41 ; Acute pain of right knee M25.561 ; Right foot pain M79.671 and Plantar neuroma of right foot G57.61 [facility] FRANCES [address] [employer] [place] [address] AVE [id number], [place] [id number] 07 Jan, 2017 Dental examination Z01.20 [facility] FRANCES Ref[address] [id number], [place] [id number] Dec, Anxiety associated with depression 300.4 [facility]Si[facility]AMFR[facility] [address] [id number], [place] [id number] Dec, Anxiety associated with depression F41.8 ; Morbid (severe) obesity due to excess calories E66.01 and Sleep disturbance G47.9 [facility] [address] [id number], [place] [id number] Dec, Anxiety associated with depression F41.8 and Sleep disturbance G47.[address] [facility] [address] [id number], [place] 529706789 Dec, [facility] [address] [id number], [place] [id number] Dec, Sleep disturbance G47.9 [facility] [address] [id number], [place] [id number] Nov, [facility] [address] [id number], [place] 880399004 Nov, Morbid (severe) obesity due to excess calories E66.01 ; Sleep disturbance G47.9 ; Anxiety associated with depression F41.8 ; Pain in right knee M25.561 and Other chronic pain G89.29 [facility] [address] [id number], [place] 015985855 Nov, [facility] [address] [id number], [place] [id number] Nov, [facility] [address] [id number], [place] [id number] Oct, Dental examination Z01.20 [facility] [address] [id number], [place] 019582002 Oct, Dental examination Z01.20 [facility] [address] [facility] [id number], [place] [address] Sep, [facility] [address] [id number], [place] 915256373 Sep, Morbid (severe) obesity due to excess calories E66.01 ; Dietary counseling Z71.3 and Weight gain finding R63.[address] [facility] [address] [id number], [place] [address]233807[address] Aug, [facility] [address] [id number], [place] 383700229 Aug, Metabolic syndrome E88.81 ; Morbid (severe) obesity due to excess calories E66.01 and Anxiety associated with depression F41.[address] [facility] [address] [id number], [place] [address]67837[address] Aug, [facility] [address] [id number], [place] 171043703 Aug, Eustachian tube dysfunction, right H69.81 and Right acute serous otitis media, recurrence not specified H65.[address] [facility] [address] [id number], [place] 611173924 Jun, Sciatica, left side M54.[address] [facility] [address] [id number], [place] [address]591598[address] Jun, [facility] [address] [id number], [place] 170410386 Apr, [facility] [address] [id number], [place] 128025266 Apr, [facility] [address] [id number], [place] [address]42103917 Apr, Acute non-recurrent maxillary sinusitis J01.[address] [facility] [address] [id number], [place] 674202205 Apr, Acute non-recurrent maxillary sinusitis J01.[address] [facility] [address] [id number], [place] 218750810 Mar, Sore throat J02.[address] [facility] [address] [id number], [place] 621031490 Feb, Quadriceps tendonitis M76.899 [facility] [address] [id number], [place] 713449603 Feb, Abscess, abdomen K65.1 and Quadriceps tendonitis M76.[address] [facility] [address] [id number], [place] 119357405 Dec, Inflamed skin tag L91.[address] [facility] [address] [id number], [place] [address]79152866 Oct, Sciatica neuralgia 724.[address] [facility] [address] [id number], [place] 433088096 Oct, Low back strain 847.2 [facility] [place] [address] [id number][place] [address] Sep, [facility] [address] [id number], [place] 318613992 Aug, Urinary tract infection 599.0 [facility] [address]00565100[place], [place] [address] Jun, [facility] [id number], [place] [address]60[address] Jun, [facility] [address]65100[place], [place] [address] Apr, [facility] [address]65100[place], [place] [address]644[address] Apr, [facility] [id number], [place] [address] Mar, [facility] [id number], [place] 259392[address] Mar, [facility] [address] [id number], [place] [address] Oct, [facility] [address] [id number], [place] [address]15[address] Jun, [facility] [address] [id number], [place] 592580326 May, [facility] [address] [id number], [place] 297431465 May, [facility] [address] [facility] [id number] [place] [address] 14 Mar, 2012 IMMUNIZATIONS No Known Immunizations SOCIAL HISTORY Never Assessed REASON FOR VISIT Weight management, Beverly GARCÍA PLAN OF CARE Activity Details Follow Up 4 Weeks Reason:weight and sleep follow up VITAL SIGNS Height 64.5 in 2016-12-18 Weight 258.1 lbs 2016-12-18 Temperature 97.8 degrees Fahrenheit 2016-12-18 Heart Rate 104 bpm 2016-12-18 Respiratory Rate 16 2016-12-18 Oximetry 97 % 2016-12-18 BMI 43.61 kg/m2 2016-12-18 Blood pressure systolic 150 mmHg 2016-12-18 Blood pressure diastolic 90 mmHg 2016-12-18 MEDICATIONS Medication Instructions Dosage Frequency Start Date End Date Duration Status Prilosec 20 mg Orally Once a day 1 capsule 24h 90 days Active Contrave 8-90 MG Orally Twice a day 2 tablet 12h Aug, Mar, 90 days Active Lunesta 2 MG Orally Once a day- bedtime. (stop the seroquel) 1 tablet immediately before bedtime Nov, Active Lexapro 20 mg Orally Once a day 1 tablets 24h Active RESULTS No Results PROCEDURES Procedure Date Ordered Result Body Site MEASURE BLOOD OXYGEN LEVEL Dec 18, 2016 INSTRUCTIONS MEDICATIONS ADMINISTERED No Known Medications [...] visit for shoulder pain 03/2016 Hospitalization History [facility] ER for lower back pain 01/2017
--- OUTSIDE RECORDS SUMMARY | 2018-05-29 08:41 | XMS REPORT ---
Author Author TIERNEY HODGE [facility] Address [address] [place] [address] Care Team Providers Care Apparel Trimmings Sales Representative Name Role Phone TIERNEY HODGE Unavailable PROBLEMS Type Condition ICD9-CM Code HAD61-TQ Code Onset Dates Condition Status SNOMED Code Problem Morbid (severe) obesity due to excess calories E66.01 Active 870433451 Problem Metabolic syndrome E88.81 Active 976861813 Problem Anxiety associated with depression F41.8 Active 182719552 Problem Sciatica, left side M54.32 Active 38635493 ALLERGIES No Information SOCIAL HISTORY Never Assessed PLAN OF CARE VITAL SIGNS MEDICATIONS Unknown [...]
--- OUTSIDE RECORDS SUMMARY | 2018-05-29 08:42 | XMS REPORT ---
Author Author TIERNEY HODGE [facility] Address [address] [place] [address] Care Team Providers Care Golf Cart Repairer Name Role Phone TIERNEY HODGE Unavailable PROBLEMS Type Condition ICD9-CM Code LGE95-IH Code Onset Dates Condition Status SNOMED Code Problem Sciatica, left side M54.32 Active 46147758 Problem Morbid (severe) obesity due to excess calories E66.01 Active 237220112 Problem Metabolic syndrome E88.81 Active 116958271 Problem Hypertriglyceridemia E78.1 Active 934573991 Problem Plantar neuroma of right foot G57.61 Active 945280767 Problem Sleep disturbance G47.9 Active 19114008 Problem Anxiety associated with depression F41.8 Active 281013674 Problem Anxiety associated with depression 300.4 Active 353929478 Problem Other chronic pain G89.29 Active 71731345 ALLERGIES Substance Reaction Event Type Date Status Hydrocodone-Acetaminophen itching Drug Allergy Feb, Active Hydrocodone itching Non Drug Allergy Feb, Active ENCOUNTERS Encounter Location Date Diagnosis [address] [id number][place] [id number] July, Sleep disturbance G47.9 ; Pain in left shoulder M25.512 ; Other chronic pain G89.29 and Left elbow pain M25.522 [facility] [address] [facility]NOTE [facility] [id number] [place] [address] July, [address] [id number], [place] [address]957257[address] July, Well woman exam with routine gynecological exam Z01.419 ; Breast cancer screening Z12.31 and BMI 40.0-44.9, adult Z68.[address] [id number], [place] [address]017[address] Jun, Pain in right knee M25.561 ; Pain in left knee M25.562 ; Other chronic pain G89.29 ; Hypertriglyceridemia E78.1 ; Pain in right elbow M25.521 ; Pain in left elbow M25.522 and Family history of diabetes mellitus Z83.3 [facility] [address] [id number], [place] [address]459[address] Jun, Pain in right knee M25.561 ; Pain in left knee M25.562 ; Other chronic pain G89.29 ; Pain in right elbow M25.521 ; Pain in left elbow M25.522 ; Hypertriglyceridemia E78.1 and Family history of diabetes mellitus Z83.3 [facility] [address] [id number], [place] [id number] Apr, [facility] [address] [id number], [place] [address] Apr, Pain in right knee M25.561 and Other chronic pain G89.29 [facility] [address] [id number], [place] [address]24[address] Apr, Weight gain R63.5 [facility] BioK [address] [id number], [place] [address]13[address] Mar, Weight gain R63.5 ; Exercise counseling Z71.82 and BMI 40.0-44.9, adult Z68.41 [facility] BioK [address] [id number], [place] [address] Feb, Strep pharyngitis J02.0 [facility] Circle[facility] [address] [id number], [place] [address] Jan, [facility] [address] [id number], [place] [address]39364360 Jan, Anxiety associated with depression 300.4 [facility] [address] [id number], [place] 498963276 Jan, BMI 40.0-44.9, adult Z68.41 ; Acute pain of right knee M25.561 ; Right foot pain M79.671 and Plantar neuroma of right foot G57.61 [facility] [address] [id number] [place] [address] Jan, Dental examination Z01.20 [facility] [address] [id number], [place] 933097582 Dec, Anxiety associated with depression 300.4 [facility] [address] [id number], [place] 968750638 Dec, Anxiety associated with depression F41.8 ; Morbid (severe) obesity due to excess calories E66.01 and Sleep disturbance G47.9 [facility] [address] [id number], [place] [address]19735[address] Dec, Anxiety associated with depression F41.8 and Sleep disturbance G47.9 [facility] [address] [id number], [place] [id number] Dec, [facility] [address] [id number], [place] 689982327 Dec, Sleep disturbance G47.9 [facility] [address] [id number], [place] 066336824 Nov, [facility] [address] [facility] [id number], [place] [address]6774[address] Nov, Morbid (severe) obesity due to excess calories E66.01 ; Sleep disturbance G47.9 ; Anxiety associated with depression F41.8 ; Pain in right knee M25.561 and Other chronic pain G89.29 [facility] [address] [id number], [place] 499478069 13 Nov, 2016 [facility] [address] [id number], [place] 144289506 09 Nov, 2016 [facility] [address] [id number], [place] [address]5034244 Oct, Dental examination Z01.20 [facility] [address] [id number], [place] 360596502 Oct, Dental examination Z01.20 [facility] [address] [facility]NOTE 3] [id number] [place] [address] Sep, [facility] [address] [id number], [place] 32386[address] Sep, Morbid (severe) obesity due to excess calories E66.01 ; Dietary counseling Z71.3 and Weight gain finding R63.5 [facility] [address] [id number], [place] 908932874 Aug, [facility] [address] [id number], [place] 760713260 Aug, Metabolic syndrome E88.81 ; Morbid (severe) obesity due to excess calories E66.01 and Anxiety associated with depression F41.8 [facility] [address] [id number], [place] 689486985 Aug, [facility] [address] [id number], [place] [address]3271536 Aug, Eustachian tube dysfunction, right H69.81 and Right acute serous otitis media, recurrence not specified H65.01 [facility] [address] [id number], [place] 7569369[address] Jun, Sciatica, left side M54.32 [facility] [address] [id number], [place] 388676860 Jun, [facility] [address] [id number], [place] 665861783 Apr, [facility] [address] [id number], [place] 288775798 Apr, [facility] [address] [id number], [place] [address]66753948 Apr, Acute non-recurrent maxillary sinusitis J01.00 [facility] [address] [id number], [place] 394056086 Apr, Acute non-recurrent maxillary sinusitis J01.[address] [facility] [address] [id number], [place] 489611494 Mar, Sore throat J02.[address] [facility] [address] [id number], [place] 740004434 Feb, Quadriceps tendonitis M76.899 [facility] [address] [id number], [place] 688244937 Feb, Abscess, abdomen K65.1 and Quadriceps tendonitis M76.[address] [facility] [address] [id number], [place] 105363762 Dec, Inflamed skin tag L91.[address] [facility] [address] [id number], [place] [id number] Oct, Sciatica neuralgia 724.3 [facility] [address] [id number], [place] 367601056 Oct, Low back strain 847.2 [facility] [place] [address] [facility] [place] [place] [id number], [place] [address]47 Sep, [facility] [address] [id number], [place] 881939205 Aug, Urinary tract infection 599.0 [facility] [address] [id number] [address] Jun, [facility] [address] [id number] [address] Jun, [facility] [address] [id number] [address] Apr, [facility] [address] [id number] [address] Apr, [facility] [address] [id number] [address] Mar, [facility] [address] [id number] [address] Mar, [facility] [address] [facility]NOTE 3] [id number] [place] [address] Oct, [facility] [address] [facility] [id number], [place] [address] Jun, [facility] [address] [facility] [id number], [place] [id number] May, [facility] [address] [facility] [id number], [place] [id number] May, [facility] [address] [facility] [id number], [place] 527990266 Mar, IMMUNIZATIONS No Known Immunizations SOCIAL HISTORY Never Assessed REASON FOR VISIT possible strep- c/o sore throat since last night, cough x 3 days. Beverly GARCÍA PLAN OF CARE Activity Details Follow Up prn Reason: VITAL SIGNS Height 64.5 in 2017-02-23 Weight 250.7 lbs 2017-02-23 Temperature 97.5 degrees Fahrenheit 2017-02-23 Heart Rate 80 bpm 2017-02-23 Respiratory Rate 18 2017-02-23 BMI 42.36 kg/m2 2017-02-23 Blood pressure systolic 104 mmHg 2017-02-23 Blood pressure diastolic 64 mmHg 2017-02-23 MEDICATIONS Medication Instructions Dosage Frequency Start Date End Date Duration Status Robaxin 500 MG Orally 3 times a day 1 tablets 8h Not-Taking Lexapro 20 mg Orally Once a day 1 tablets 24h Active Prilosec 20 mg Orally Once a day 1 capsule 24h 90 days Active Seroquel 200 mg Orally Once a day 1 tablet at bedtime 24h Active Contrave 8-90 MG Orally Twice a day 2 tablet 12h Aug, Active Tramadol HCl 50 MG 1 tablet as needed Active Ibuprofen 800 MG 1 capsule with food or milk as needed Active Amoxicillin 875 MG Orally every 12 hrs 1 tablet 12h Feb, Feb, 10 day(s) Active RESULTS Name Result Date Reference Range STREP A (IN HOUSE) 2017-02-23 STREP A POSITIVE Control + Lot # [id number] Exp date 10/11 PROCEDURES Procedure Date Ordered Result Body Site STREP A ASSAY W/OPTIC Feb 23, 2017 INSTRUCTIONS MEDICATIONS ADMINISTERED No Known Medications [...] right knee arthroscopy 07/2017 [facility] for shoulder pain 03/2016 Hospitalization History [facility] ER for lower back pain 01/2017
--- OUTSIDE RECORDS SUMMARY | 2018-05-29 08:42 | XMS REPORT ---
Author Author TERESA EUBANKS [facility] VegasIbexis TechnologiesFRANCES Address Unknown Phone Unavailable Care Team Providers Care Inclinometer Tester Name Role Phone ANGELLAMADDY TERESA Unavailable Unavailable PROBLEMS Type Condition ICD9-CM Code YTK63-LX Code Onset Dates Condition Status SNOMED Code Problem Metabolic syndrome E88.81 Active 785561635 Problem Sciatica, left side M54.32 Active 09518606 Problem Plantar neuroma of right foot G57.61 Active 714265382 Problem Anxiety associated with depression 300.4 Active 721100106 Problem Anxiety associated with depression F41.8 Active 243218627 Problem Morbid (severe) obesity due to excess calories E66.01 Active 164047940 Problem Other chronic pain G89.29 Active 50250462 Problem Sleep disturbance G47.9 Active 23435746 ALLERGIES No Information ENCOUNTERS Encounter Location Date Diagnosis [facility] [id number] [id number] Apr, [facility] [employer] [id number], [place] [address]18348[address] Apr, Pain in right knee M25.561 and Other chronic pain G89.29 [facility] [employer] [id number], [place] [address]8680[address] Apr, Weight gain R63.5 [facility] [employer] [id number], [place] [address]7522[address] Mar, Weight gain R63.5 ; Exercise counseling Z71.82 and BMI 40.0-44.9, adult Z68.41 [facility] [id number] [place] [address] Feb, Strep pharyngitis J02.0 [facility] [id number], [place] [address]247[address] Jan, [facility] [id number] [place] [address] Jan, Anxiety associated with depression 300.4 [facility] [address] [id number], [place] [address]37901[address] Jan, BMI 40.0-44.9, adult Z68.41 ; Acute pain of right knee M25.561 ; Right foot pain M79.671 and Plantar neuroma of right foot G57.61 [facility] [address] [id number], [place] 306691016 Jan, Dental examination Z01.20 [facility] [address] [id number], [place] [address]07[address] Dec, Anxiety associated with depression 300.4 [facility] [address] [id number], [place] 218053845 Dec, Anxiety associated with depression F41.8 ; Morbid (severe) obesity due to excess calories E66.01 and Sleep disturbance G47.9 [facility] [address] [id number], [place] [address] Dec, Anxiety associated with depression F41.8 and Sleep disturbance G47.9 [facility] [address] [id number], [place] [address]48[address]148 Dec, [facility] [address] [employer] [id number], [place] 159178772 Dec, Sleep disturbance G47.9 [facility] [address] [id number], [place] [address] Nov, [facility] [address] [id number], [place] [address]33659853 Nov, Morbid (severe) obesity due to excess calories E66.01 ; Sleep disturbance G47.9 ; Anxiety associated with depression F41.8 ; Pain in right knee M25.561 and Other chronic pain G89.29 [facility] [address] [employer] [id number], [place] [address]58235647 Nov, [facility] [address] [id number], [place] [address]45[address] Nov, [facility] [address] [id number], [place] 412[address] Oct, Dental examination Z01.[address] [facility] [address] [id number] [place] [address] Oct, Dental examination Z01.20 [facility] [address] [facility] [id number] [address] Sep, [facility] [address] [id number], [place] 612963643 Sep, Morbid (severe) obesity due to excess calories E66.01 ; Dietary counseling Z71.3 and Weight gain finding R63.[address] [facility] [address] [id number], [place] [address]480[address]156 Aug, [facility] [address] [id number], [place] [address]3670[address] Aug, Metabolic syndrome E88.81 ; Morbid (severe) obesity due to excess calories E66.01 and Anxiety associated with depression F41.[address] [facility] [address] [id number], [place] [address]648[address] Aug, [facility] [address] [id number], [place] 953859366 Aug, Eustachian tube dysfunction, right H69.81 and Right acute serous otitis media, recurrence not specified H65.01 [facility] [address] [id number], [place] [address]0138313 Jun, Sciatica, left side M54.32 [facility] [address] [id number], [place] [address] Jun, [facility] [address] [id number], [place] [address]69329394 Apr, [facility] [address] [id number], [place] [address]205[address] Apr, [facility] [address] [id number], [place] 446825[address] Apr, Acute non-recurrent maxillary sinusitis J01.[address] [facility] [address] [id number], [place] 549296014 Apr, Acute non-recurrent maxillary sinusitis J01.[address] [facility] [address] [id number], [place] [address]45286389 Mar, Sore throat J02.9 [facility] [address] [id number], [place] 397360263 Feb, Quadriceps tendonitis M76.899 [facility] [address] [id number], [place] 466229552 Feb, Abscess, abdomen K65.1 and Quadriceps tendonitis M76.899 [facility] [address] [id number], [place] 705998[address] Dec, Inflamed skin tag L91.8 [facility] [address] [id number], [place] 269508885 Oct, Sciatica neuralgia 724.3 [facility] [address] [id number], [place] 301833503 Oct, Low back strain 847.2 [facility] [place] [address] [facility] [id number], [place] [address]01[address] Sep, [facility] [address] [id number], [place] [address]8665[address] Aug, Urinary tract infection 599.0 [facility] [address] [facility] [id number] [address] Jun, [facility] [address] [id number], [place] [address] Jun, [facility] [address] [facility] [id number][place] [address] Apr, [facility] [address] [id number] [place] [address] Apr, [facility] [place] [address] [facility] [id number] [place] [address] Mar, [facility] [place] [address] [id number] [place] [address] Mar, [facility] [place] [address] [facility] [id number] [place] [address] Oct, [facility] [address]00565100[place] [address] Jun, [facility] [address]100[place] [address] May, [facility] [address], [place] [address] May, [facility] [address] [id number], [place] [address] Mar, IMMUNIZATIONS No Known Immunizations SOCIAL HISTORY Never Assessed REASON FOR VISIT [facility] Contact PLAN OF CARE Activity Details Follow Up Sees a therapist and psychiatrist at [facility]. Reason:Services at [facility] VITAL SIGNS MEDICATIONS Unknown Medications RESULTS No [...] arch surgeris X4 Hospitalization History appendicitis- [facility] Hospitalization History ER visit for shoulder pain 03/[address] [facility] ER for lower back pain 01/2017
--- OUTSIDE RECORDS SUMMARY | 2018-05-29 08:42 | XMS REPORT ---
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 Name Role Phone TIERNEY HODGE Unavailable PROBLEMS Type Condition ICD9-CM Code AFN69-CU Code Onset Dates Condition Status SNOMED Code Problem Sciatica, left side M54.32 Active 84719309 Problem Morbid (severe) obesity due to excess calories E66.01 Active 552740407 Problem Metabolic syndrome E88.81 Active 595444000 Problem Hypertriglyceridemia E78.1 Active 257750816 Problem Plantar neuroma of right foot G57.61 Active 338174990 Problem Sleep disturbance G47.9 Active 96014579 Problem Anxiety associated with depression F41.8 Active 475616708 Problem Anxiety associated with depression 300.4 Active 414078380 Problem Other chronic pain G89.29 Active 15315857 ALLERGIES No Information ENCOUNTERS Encounter Location Date Diagnosis [address] [id number], [place] [id number] July, [address] [id number], [place] 525[address]8736 Jun, Pain in right knee M25.561 ; Pain in left knee M25.562 ; Other chronic pain G89.29 ; Hypertriglyceridemia E78.1 ; Pain in right elbow M25.521 ; Pain in left elbow M25.522 and Family history of diabetes mellitus Z83.[address] [id number], [place] 624793712 Jun, Pain in right knee M25.561 ; Pain in left knee M25.562 ; Other chronic pain G89.29 ; Pain in right elbow M25.521 ; Pain in left elbow M25.522 ; Hypertriglyceridemia E78.1 and Family history of diabetes mellitus Z83.[address] [id number], [place] [address]97304960 Apr, [facility] [address] [id number], [place] 407[address]130 Apr, Pain in right knee M25.561 and Other chronic pain G89.29 [facility] [place] DANIEL [address] [place] [address] AVE [id number], [place] 455224651 Apr, Weight gain R63.5 [facility] [address] [place] [address] AVE [id number], [place] [address]47053159 Mar, Weight gain R63.5 ; Exercise counseling Z71.82 and BMI 40.0-44.9, adult Z68.41 [facility] JU[place] DANIEL [address] [place] [address] AVE [id number], [place] 479783966 Feb, Strep pharyngitis J02.0 [facility] [address] [employer] [place] [address] AVE [id number], [place] 309223678 Jan, [facility] [address] [place] [address] AVE [id number], [place] 857327352 Jan, Anxiety associated with depression 300.4 [facility] [address] [place] [address] AVE [id number], [place] 682603618 Jan, BMI 40.0-44.9, adult Z68.41 ; Acute pain of right knee M25.561 ; Right foot pain M79.671 and Plantar neuroma of right foot G57.61 [facility] [address] [id number], [place] 4799969[address] Jan, Dental examination Z01.20 [facility] [employer] [place] [address] AVE [id number], [place] 471899902 Dec, Anxiety associated with depression 300.4 [facility] On license of [facility] [id number], [place] 243248563 Dec, Anxiety associated with depression F41.8 ; Morbid (severe) obesity due to excess calories E66.01 and Sleep disturbance G47.9 [facility] [address] [id number] [place] [address] Dec, Anxiety associated with depression F41.8 and Sleep disturbance G47.9 [facility] [address] [id number], [place] 63[address]157[address] Dec, [facility] [address] [id number], [place] 464153430 Dec, Sleep disturbance G47.9 [facility] [place] [address] [id number], [place] 836921106 Nov, [facility] [address] [id number], [place] 897754282 Nov, Morbid (severe) obesity due to excess calories E66.01 ; Sleep disturbance G47.9 ; Anxiety associated with depression F41.8 ; Pain in right knee M25.561 and Other chronic pain G89.29 [facility] [address] [id number], [place] [address]779029 Nov, [facility] J[address]AN [address] [id number], [place] 854295067 Nov, [facility] [address] [id number], [place] 068823088 Oct, Dental examination Z01.20 [facility] [address] [id number], [place] 666420[address] Oct, Dental examination Z01.20 [facility] [address] [place] [address] [id number], [place] [address]67[address] Sep, [facility] [address] [address] [id number], [place] 398947326 Sep, Morbid (severe) obesity due to excess calories E66.01 ; Dietary counseling Z71.3 and Weight gain finding R63.[address] [facility] [address] [id number], [place] 922838238 Aug, [facility] [address] [id number], [place] 574637411 Aug, Metabolic syndrome E88.81 ; Morbid (severe) obesity due to excess calories E66.01 and Anxiety associated with depression F41.[address] [facility] [address] [id number], [place] 694689942 Aug, [facility] [address] [id number], [place] 669459016 Aug, Eustachian tube dysfunction, right H69.81 and Right acute serous otitis media, recurrence not specified H65.[address] [facility] [address] [id number], [place] 445346302 Jun, Sciatica, left side M54.[address] [facility] [address] [id number], [place] 701121741 Jun, [facility] [address] [facility] [address] [id number], [place] [address]1696340 Apr, [facility] [address] [id number], [place] 787479765 Apr, [facility] [address] [id number], [place] 652268662 Apr, Acute non-recurrent maxillary sinusitis J01.00 [facility] [address] [id number], [place] 600807668 Apr, Acute non-recurrent maxillary sinusitis J01.[address] [facility] [address] [id number], [place] 896868796 Mar, Sore throat J02.9 [facility] [address] [id number], [place] 723598050 Feb, Quadriceps tendonitis M76.899 [facility] [address] [id number], [place] 637157079 Feb, Abscess, abdomen K65.1 and Quadriceps tendonitis M76.899 [facility] [address] [id number], [place] 602034435 Dec, Inflamed skin tag L91.8 [facility] [address] [id number], [place] 092900117 Oct, Sciatica neuralgia 724.3 [facility] [address] [id number], [place] 154566229 Oct, Low back strain 847.2 [facility] [place] [address] [id number], [place] [address]692687 Sep, [facility] [address] [id number], [place] 912768811 Aug, Urinary tract infection 599.0 [facility] [address]00565100[place], [place] [address] Jun, [facility] [address]00565100[place], [place] [address] Jun, [facility] [address]00565100[place], [place] [address] Apr, [facility] [address]00565100[place], [place] [address]- [address] Apr, [facility] [address]00565100[place], [place] [address] Mar, [facility] [address]00565100[place], [place] [address] Mar, [facility] [address]00565100[place], [place] [address]- [address] Oct, [facility] [place] [address] [facility] [id number] [place] [address] Jun, [facility] [place] [address] [facility] [id number] [place] 670933659 May, [facility] [place] [address] [facility] [id number] [place] [address] May, [facility] [place] [address] [id number] [place] [address]47 Mar, IMMUNIZATIONS No Known Immunizations SOCIAL HISTORY Never Assessed REASON FOR VISIT Refill request PLAN OF CARE VITAL SIGNS MEDICATIONS Medication Instructions Dosage Frequency Start Date End Date Duration Status Seroquel 200 mg Orally Once a day 1 tablet at bedtime 24h 30 days Active Prilosec 20 mg Orally Once a day 1 capsule 24h 90 days Active RESULTS No Results PROCEDURES No [...] foot arch surgeris X4 Hospitalization History appendicitis- [facility] Hospitalization History ER visit for shoulder pain 03/2016 Hospitalization History [facility] ER for lower back pain 01/2017
--- OUTSIDE RECORDS SUMMARY | 2018-05-29 08:42 | XMS REPORT ---
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 Role Phone TIERNEY HODGE Unavailable PROBLEMS Type Condition ICD9-CM Code DOF91-OZ Code Onset Dates Condition Status SNOMED Code Problem Sciatica, left side M54.32 Active 00694562 Problem Morbid (severe) obesity due to excess calories E66.01 Active 019772833 Problem Metabolic syndrome E88.81 Active 241925521 Problem Hypertriglyceridemia E78.1 Active 748735359 Problem Plantar neuroma of right foot G57.61 Active 415566646 Problem Sleep disturbance G47.9 Active 70958943 Problem Anxiety associated with depression F41.8 Active 194028481 Problem Anxiety associated with depression 300.4 Active 560857413 Problem Other chronic pain G89.29 Active 18977005 ALLERGIES Substance Reaction Event Type Date Status Hydrocodone-Acetaminophen itching Drug Allergy Dec, Active Hydrocodone itching Non Drug Allergy Dec, Active ENCOUNTERS Encounter Location Date Diagnosis [address] [id number], [place] [id number] July, [address] [id number], [place] [address] July, Well woman exam with routine gynecological exam Z01.419 ; Breast cancer screening Z12.31 and BMI 40.0-44.9, adult Z68.[address] [id number], [place] [address] Jun, 2018 Pain in right knee M25.561 ; Pain in left knee M25.562 ; Other chronic pain G89.29 ; Hypertriglyceridemia E78.1 ; Pain in right elbow M25.521 ; Pain in left elbow M25.522 and Family history of diabetes mellitus Z83.[address] [id number], [place] [address] Jun, Pain in right knee M25.561 ; Pain in left knee M25.562 ; Other chronic pain G89.29 ; Pain in right elbow M25.521 ; Pain in left elbow M25.522 ; Hypertriglyceridemia E78.1 and Family history of diabetes mellitus Z83.[address] [facility] [address] [id number], [place] [address] Apr, [facility] [address] [id number], [place] [address] Apr, Pain in right knee M25.561 and Other chronic pain G89.29 [facility] [address] [place] [address] AVE [id number], [place] [id number] Apr, Weight gain R63.5 [facility] [address] [place] [address] AV [id number], [place] [address] Mar, Weight gain R63.5 ; Exercise counseling Z71.82 and BMI 40.0-44.9, adult Z68.41 [facility] FR[facility] [address] [place] [address] AVE [id number], [place] [address]24937[address] Feb, Strep pharyngitis J02.0 [facility] FRANCES [address] [place] [address] AVE [id number], [place] 12978[address] Jan, [facility] FR[facility] [address] [place] [address] AVE [id number], [place] [id number] Jan, Anxiety associated with depression 300.4 [facility] [address] [id number], [place] [address] Jan, BMI 40.0-44.9, adult Z68.41 ; Acute pain of right knee M25.561 ; Right foot pain M79.671 and Plantar neuroma of right foot G57.61 [facility] FRANCES [address] [place] [address] AVE [id number], [place] [address]6899045[address] Jan, Dental examination Z01.20 [facility] [address] [id number] [place], [place] [address] Dec, Anxiety associated with depression 300.4 [facility] [address] [id number], [place] [address]28622476 Dec, Anxiety associated with depression F41.8 ; Morbid (severe) obesity due to excess calories E66.01 and Sleep disturbance G47.9 [facility] [address] [id number], [place] [id number] Dec, Anxiety associated with depression F41.8 and Sleep disturbance G47.9 [facility] [address] [id number], [place] [address]6038[address] Dec, [facility] [address] [id number], [place] [id number] Dec, Sleep disturbance G47.9 [facility] [address] [id number], [place] [id number] Nov, [facility] [address] [id number], [place] [id number] Nov, Morbid (severe) obesity due to excess calories E66.01 ; Sleep disturbance G47.9 ; Anxiety associated with depression F41.8 ; Pain in right knee M25.561 and Other chronic pain G89.29 [facility] [address] [id number], [place] [id number] Nov, [facility] [address] [id number], [place] [id number] Nov, [facility] [address] [id number], [place] [id number] Oct, Dental examination Z01.20 [facility] [address] [id number], [place] [id number] Oct, Dental examination Z01.20 [facility] [address] [facility] [id number] [place], [place] [address] Sep, [facility] [address] [id number], [place] [address] Sep, Morbid (severe) obesity due to excess calories E66.01 ; Dietary counseling Z71.3 and Weight gain finding R63.5 [facility] [address] [id number], [place] [address]5009[address]76 Aug, [facility] [address] [id number], [place] [address]20022605 Aug, Metabolic syndrome E88.81 ; Morbid (severe) obesity due to excess calories E66.01 and Anxiety associated with depression F41.[address] [facility] [address] [id number], [place] [id number] Aug, [facility] [address] [id number], [place] 167219226 Aug, Eustachian tube dysfunction, right H69.81 and Right acute serous otitis media, recurrence not specified H65.01 [facility] [address] [id number], [place] 670837751 Jun, Sciatica, left side M54.32 [facility] [address] [id number], [place] 911860282 Jun, [facility] [address] [id number], [place] 6[address]7925[address] Apr, [facility] [address] [id number], [place] [address]248[address] Apr, [facility] [address] [id number], [place] 333446035 Apr, Acute non-recurrent maxillary sinusitis J01.00 [facility] [address] [id number], [place] [id number] Apr, Acute non-recurrent maxillary sinusitis J01.[address] [facility] [address] [id number], [place] 161855377 Mar, Sore throat J02.9 [facility] [address] [id number], [place] [id number] Feb, Quadriceps tendonitis M76.899 [facility] [address] [id number], [place] [id number] Feb, Abscess, abdomen K65.1 and Quadriceps tendonitis M76.[address] [facility] [address] [id number], [place] 140686094 Dec, Inflamed skin tag L91.[address] [facility] [address] [id number], [place] 451558520 Oct, Sciatica neuralgia 724.3 [facility] [address] [id number], [place] 575219288 Oct, Low back strain 847.2 [facility] [address] [facility] [id number], [place] [id number] Sep, [facility] [address] [id number], [place] 246925517 Aug, Urinary tract infection 599.0 [facility] [address] [id number], [place] [address] Jun, [facility] [address]00565100[place], [place] [address] Jun, [facility] [address] [id number], [place] [address] Apr, [facility] [address]00565100[place], [place] [address] Apr, [facility] [address] [id number], [place] 29035700- [address] Mar, [facility] [address]00565100[place], [place] [address] Mar, [facility] [address] [id number], [place] [address] Oct, [facility] [place] [address] [id number] [place] [id number] Jun, [facility] [address] [facility] [id number] [place] [id number] May, [facility] [address] [facility] [id number] [place] [address]509[address] May, [facility] [address] [facility] [id number] [place] [id number] Mar, IMMUNIZATIONS No Known Immunizations SOCIAL HISTORY Never Assessed REASON FOR VISIT weight check AGarrett [employer] Contrtoni follow up. PLAN OF CARE Activity Details Follow Up 3 Months Reason:weight/mood f/u VITAL SIGNS Height 64.5 in 2017-01-16 Weight 255.2 lbs 2017-01-16 Temperature 98.0 degrees Fahrenheit 2017-01-16 Heart Rate 86 bpm 2017-01-16 Respiratory Rate 17 2017-01-16 BMI 43.12 kg/m2 2017-01-16 Blood pressure systolic 118 mmHg 2017-01-16 Blood pressure diastolic 82 mmHg 2017-01-16 MEDICATIONS Medication Instructions Dosage Frequency Start Date End Date Duration Status Seroquel 200 mg Orally Once a day 1 tablet at bedtime 24h Active Prilosec 20 mg Orally Once a day 1 capsule 24h 90 days Active Lexapro 20 mg Orally Once a day 1 tablets 24h Active Contrave 8-90 MG Orally Twice a day 2 tablet 12h Aug, Active RESULTS No Results PROCEDURES No Known [...] right knee arthroscopy 07/2017 Hospitalization History appendicitis- [facility] Hospitalization History ER visit for shoulder pain 03/2016 Hospitalization History [facility] ER for lower back pain 01/2017
--- OUTSIDE RECORDS SUMMARY | 2018-05-29 08:43 | XMS REPORT | Continuity of Care Document ---
Author Author [facility] Organization [facility] Address Unknown Phone Unavailable Allergies Active Description Code Type Severity Reaction Onset Reported/Identified Relationship to Patient Clinical Status Yes hydrocodone Drug Allergy N/A N/A 04/04/2014 Yes hydrocodone [id number] Drug Allergy Moderate ITCHING ALL OVE 05/27/2018 Medications There is no data. Problems Date Dx Coded Attending Type Code Diagnosis Diagnosed By 04/08/2012 382.9 OTITIS MEDIA 04/08/2012 462 PHARYNGITIS ACUTE 04/08/2012 SIDNEY ANDINO MD 382.9 OTITIS MEDIA 04/08/2012 SIDNEY ANDINO MD 462 PHARYNGITIS ACUTE 04/08/2012 TIANNA VALDEZ DO 382.9 OTITIS MEDIA 04/08/2012 TIANNA VALDEZ DO 462 PHARYNGITIS ACUTE 05/28/2012 SIDNEY ANDINO MD 784.0 headache 05/28/2012 SIDNEY ANDINO MD V18.0 FAMILY HISTORY OF DIABETES MELLITUS 05/28/2012 TIANNA VALDEZ DO 784.0 headache 05/28/2012 TIANNA VALDEZ DO V18.0 FAMILY HISTORY OF DIABETES MELLITUS 10/31/2012 TIANNA VALDEZ DO 719.41 joint pain, localized in the left shoulder 04/04/2014 TIANNA VALDEZ DO 599.0 URINARY TRACT INFECTION SITE NOT SPECIFIED 02/04/2018 P M86700 Effusion, left shoulder 02/22/2018 S X07845 Pain in left shoulder 02/22/2018 P 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 04/08/2018 P D649 Anemia, unspecified 04/08/2018 S K219 Gastro- esophageal reflux disease without esophagitis 04/08/2018 S R5383 Other fatigue 04/08/2018 S R739 Hyperglycemia, unspecified 04/08/2018 S Z833 Family history of diabetes mellitus 04/09/2018 P H45062 Pain in left knee 04/09/2018 P K53574 Pain in left knee 04/22/2018 P H99149K Other tear of medial meniscus, current injury, left knee, initial encounter 05/20/2018 P R0902 Hypoxemia 05/20/2018 S Z720 Tobacco use 05/27/2018 COURT BALDERRAMA, SABINA Lal Ot Z01.818 ENCOUNTER FOR OTHER PREPROCEDURAL EXAMIN Procedures Code [place] [address] INFLUENZA A & B (IN-HOUSE) 04/08/2012 32467 ROUTINE VENIPUNCTURE 05/28/2012 14321 CMP 05/28/2012 99576 A1C (RML) 05/28/2012 22156 TSH 05/28/2012 66988 CBC 05/28/2012 15322 UA LONG DIP 04/04/2014 Results Test Result Range SUREPATH PAP AND HPV mRNA E6/E7 - 08/03/17 11:46 CLINICAL INFORMATION: NA NRG LMP: 06/2017 NRG PREV. PAP: 2014 NRG PREV. BX: NA NRG SOURCE: Cervix NRG STATEMENT OF ADEQUACY: NRG INTERPRETATION/RESULT: NRG AUTOTRANSFUSIONIST: NRG HPV mRNA E6/E7, SUREPATH VIAL Not Detected NOT DETECTED COMMENT NRG EBV Acute Infection Antibodies - 04/08/18 10:15 EBV Nuclear Antigen Ab, IgG 193.0 U/mL 0.0-17.9 EBV Early Antigen Ab, IgG 17.6 U/mL 0.0-8.9 EBV Ab VCA, IgG >600.0 U/mL 0.0-17.9 EBV Ab VCA, IgM <36.0 U/mL 0.0-35.9 Interpretation: Comment Urine beta human chorionic gonadotropin (hCG) measurement - 05/29/18 07:50 Urine beta human chorionic gonadotropin (hCG) measurement NEGATIVE NEGATIVE Capillary blood glucose measurement by glucometer (mass/volume) - 05/29/18 07: 51 Capillary blood glucose measurement by glucometer (mass/volume) 113 mg/dL 70-110 Encounters ACCT No. Visit Date/Time Discharge Status Pt. Type Provider Facility Loc./Unit Complaint [id number] 05/14/2018 08:49:44 05/14/2018 23:59:59 CLS Outpatient Alma Rosa Orellana [id number] 05/07/2018 14:07:40 05/07/2018 23:59:59 CLS Outpatient Alma Rosa Orellana [id number] 03/29/2018 11:27:35 03/29/2018 23:59:59 CLS Outpatient Alma Rosa Orellana [id number] 03/25/2018 15:37:40 03/25/2018 23:59:59 CLS Outpatient Alma Rosa Orellana [id number] 03/07/2018 10:13:35 03/07/2018 23:59:59 CLS Outpatient Alma Rosa Orellana [id number] 01/24/2018 09:27:40 01/24/2018 23:59:59 CLS Outpatient Alma Rosa Orellana [id number] 01/17/2018 15:02:23 01/17/2018 23:59:59 CLS Outpatient Alma Rosa Orellana [id number] 11/28/2017 14:59:23 11/28/2017 23:59:59 CLS Outpatient Alma Rosa Orellana [id number] 05/20/2018 07:48:00 Document Registration [id number] 04/22/2018 09:31:00 Document Registration [id number] 04/09/2018 19:22:00 Document Registration [id number] 04/09/2018 19:22:00 Document Registration [id number] 04/08/2018 10:15:00 Document Registration [id number] 02/22/2018 09:23:00 Document Registration [id number] 02/04/2018 09:45:00 Document Registration [id number] 05/17/2018 16:40:00 05/17/2018 23:59:59 CLS Outpatient TIERNEY HODGE APRNK ILIANA [id number] 08/03/2017 11:00:00 Document Registration [id number] 04/10/2018 07:07:00 Document Registration [id number] 05/27/2018 06:29:00 05/27/2018 14:25:00 DIS Outpatient SABINA YUN MD [facility] PREOP LEFT KNEE ARTHROSCOPY [id number] 05/29/2018 07:38:00 ACT Outpatient SABINA YUN MD [facility] SDC LEFT KNEE TORN MEDIAL MENISCUS [id number] 04/04/2014 09:01:00 04/04/2014 23:59:59 CLS Outpatient TIANNA VALDEZ DO [id number] 05/28/2012 09:40:00 05/28/2012 23:59:59 CLS Outpatient SIDNEY ANDINO MD [id number] 04/08/2012 10:51:00 04/08/2012 23:59:59 CLS Outpatient
--- OUTSIDE RECORDS SUMMARY | 2018-05-29 08:43 | XMS REPORT ---
Author Author TIERNEY HODGE [facility] Address [address] [place] [address] Care Team Providers Care Glass Blowing Instructor Name Role Phone TIERNEY HODGE Unavailable PROBLEMS Type Condition ICD9-CM Code NJI18-LH Code Onset Dates Condition Status SNOMED Code Problem Sciatica, left side M54.32 Active 16603452 Problem Morbid (severe) obesity due to excess calories E66.01 Active 061264596 Problem Metabolic syndrome E88.81 Active 885657298 Problem Hypertriglyceridemia E78.1 Active 906656812 Problem Plantar neuroma of right foot G57.61 Active 798813623 Problem Sleep disturbance G47.9 Active 13752395 Problem Anxiety associated with depression F41.8 Active 856715579 Problem Anxiety associated with depression 300.4 Active 880126405 Problem Other chronic pain G89.29 Active 40459001 ALLERGIES No Information ENCOUNTERS Encounter Location Date Diagnosis [address] [id number] [id number] July, Sleep disturbance G47.9 ; Pain in left shoulder M25.512 ; Other chronic pain G89.29 and Left elbow pain M25.522 [facility] [address] [facility] [id number], [place] [address] July, [address] [id number], [place] 38[address]644[address] July, Well woman exam with routine gynecological exam Z01.419 ; Breast cancer screening Z12.31 and BMI 40.0-44.9, adult Z68.41 [facility] [address] [id number], [place] [id number] 18 Jun, 2017 Pain in right knee M25.561 ; Pain in left knee M25.562 ; Other chronic pain G89.29 ; Hypertriglyceridemia E78.1 ; Pain in right elbow M25.521 ; Pain in left elbow M25.522 and Family history of diabetes mellitus Z83.3 [facility] [address] [id number], [place] [address] Jun, Pain in right knee M25.561 ; Pain in left knee M25.562 ; Other chronic pain G89.29 ; Pain in right elbow M25.521 ; Pain in left elbow M25.522 ; Hypertriglyceridemia E78.1 and Family history of diabetes mellitus Z83.3 [facility] [address] [id number], [place] [address] Apr, [facility] [address] [id number], [place] [address]79700[address] Apr, Pain in right knee M25.561 and Other chronic pain G89.29 [facility] [address] [id number], [place] [id number] Apr, Weight gain R63.5 [facility] [address] [id number], [place] [address] Mar, Weight gain R63.5 ; Exercise counseling Z71.82 and BMI 40.0-44.9, adult Z68.41 [facility] [address] [id number], [place] [id number] Feb, Strep pharyngitis J02.0 [facility] [address] [id number], [place] [address] Jan, [facility] [address] [id number], [place] [address] Jan, Anxiety associated with depression 300.4 [facility] [id number], [place] 922906247 Jan, BMI 40.0-44.9, adult Z68.41 ; Acute pain of right knee M25.561 ; Right foot pain M79.671 and Plantar neuroma of right foot G57.61 [facility] [address] [id number] [place] [address] Jan, Dental examination Z01.[address] [facility] [address] [id number] [place] [address] Dec, Anxiety associated with depression 300.[address] [facility] [address] [id number] [place] [address] Dec, Anxiety associated with depression F41.8 ; Morbid (severe) obesity due to excess calories E66.01 and Sleep disturbance G47.[address] [facility] [address] [id number], [place] [address]88370355 Dec, Anxiety associated with depression F41.8 and Sleep disturbance G47.[address] [facility] [address] [id number], [place] [address]42[address] Dec, [facility] [address] [id number], [place] [id number] Dec, Sleep disturbance G47.[address] [facility] [address] [id number], [place] [id number] Nov, [facility] [address] [id number], [place] 529384721 Nov, Morbid (severe) obesity due to excess calories E66.01 ; Sleep disturbance G47.9 ; Anxiety associated with depression F41.8 ; Pain in right knee M25.561 and Other chronic pain G89.[address] [facility] [address] [id number], [place] [id number] Nov, [facility] [address] [id number], [place] 217834369 Nov, [facility] [address] [id number], [place] 483478724 Oct, Dental examination Z01.[address] [facility] [address] [id number], [place] 361695366 Oct, Dental examination Z01.20 [facility] [address] [facility] [id number], [place] [address] Sep, [facility] [address] [id number], [place] 802818400 Sep, Morbid (severe) obesity due to excess calories E66.01 ; Dietary counseling Z71.3 and Weight gain finding R63.[address] [facility] [address] [id number], [place] 244006646 Aug, [facility] [address] [id number], [place] [id number] Aug, Metabolic syndrome E88.81 ; Morbid (severe) obesity due to excess calories E66.01 and Anxiety associated with depression F41.[address] [facility] [address] [id number], [place] 504959541 Aug, [facility] [address] [id number], [place] [address]3384837 Aug, Eustachian tube dysfunction, right H69.81 and Right acute serous otitis media, recurrence not specified H65.01 [facility] [address] [id number], [place] 615545441 Jun, Sciatica, left side M54.[address] [facility] [address] [id number], [place] 807070317 Jun, [facility] [address] [id number], [place] [id number] Apr, [facility] [address] [id number], [place] 14708[address]40 Apr, [facility] [address] [id number], [place] 647473008 Apr, Acute non-recurrent maxillary sinusitis J01.[address] [facility] [address] [id number], [place] [id number] Apr, Acute non-recurrent maxillary sinusitis J01.[address] [facility] [address] [id number], [place] 073509383 Mar, Sore throat J02.[address] [facility] [address] [id number], [place] 163355104 Feb, Quadriceps tendonitis M76.[address] [facility] [address] [id number], [place] 924767608 Feb, Abscess, abdomen K65.1 and Quadriceps tendonitis M76.[address] [facility] [address] [id number], [place] 581931192 Dec, Inflamed skin tag L91.[address] [facility] [address] [id number], [place] [id number] Oct, Sciatica neuralgia 724.3 [facility] [address] [id number], [place] 179403745 Oct, Low back strain 847.2 [facility] [address] [id number], [place] [id number] Sep, [facility] [address] [id number], [place] 224023972 Aug, Urinary tract infection 599.0 [facility] [address]00565100[place], [place] [address] Jun, [facility] [address]00565100[place], [place] [address] Jun, [facility] [id number], [place] [address] Apr, [facility] [id number], [place] [address] Apr, [facility] [id number] [place] [address] Mar, [facility] [address]00565100[place], [place] [address] Mar, [facility] [id number] [place] [address] Oct, [facility] [address] [facility] [id number] [place] [address] Jun, [facility] [address] [facility] [id number] [place] [id number] May, [facility] 120 [facility] [id number] [place] [id number] May, [address] [id number], [place] [id number] Mar, IMMUNIZATIONS No Known Immunizations SOCIAL HISTORY [...]
--- OUTSIDE RECORDS SUMMARY | 2018-05-29 08:43 | XMS REPORT ---
Author Author RYLIE SERRANO [facility] Address [address] [place] [address] Care Team Providers Care Curtain Mender Name Role Phone RYLIE SERRANO Unavailable PROBLEMS Type Condition ICD9-CM Code WQM08-PM Code Onset Dates Condition Status SNOMED Code Problem Sciatica, left side M54.32 Active 81287251 Problem Morbid (severe) obesity due to excess calories E66.01 Active 252034554 Problem Metabolic syndrome E88.81 Active 105263978 Problem Hypertriglyceridemia E78.1 Active 889636235 Problem Plantar neuroma of right foot G57.61 Active 822551472 Problem Sleep disturbance G47.9 Active 41504399 Problem Anxiety associated with depression F41.8 Active 481748275 Problem Anxiety associated with depression 300.4 Active 926654505 Problem Other chronic pain G89.29 Active 37032911 ALLERGIES Substance Reaction Event Type Date Status Hydrocodone-Acetaminophen itching Drug Allergy Oct, Active Hydrocodone itching Non Drug Allergy Oct, Active ENCOUNTERS Encounter Location Date Diagnosis [address] [id number], [place] [id number] Jun, Pain in right knee M25.561 ; Pain in left knee M25.562 ; Other chronic pain G89.29 ; Hypertriglyceridemia E78.1 ; Pain in right elbow M25.521 ; Pain in left elbow M25.522 and Family history of diabetes mellitus Z83.[address] [id number], [place] [address] Jun, Pain in right knee M25.561 ; Pain in left knee M25.562 ; Other chronic pain G89.29 ; Pain in right elbow M25.521 ; Pain in left elbow M25.522 ; Hypertriglyceridemia E78.1 and Family history of diabetes mellitus Z83.[address] [id number] [place] [id number] Apr, [facility] [address] [id number], [place] [id number] Apr, Pain in right knee M25.561 and Other chronic pain G89.29 [facility] [address] [place] [address] AVE [id number], [place] [id number] Apr, [facility] R63.5 [facility] [address] [place] [address] AVE [id number], [place] [id number] Mar, Weight gain R63.5 ; Exercise counseling Z71.82 and BMI 40.0-44.9, adult Z68.41 [facility] [address] [place] [address] AVE [id number], [place] [id number] Feb, Strep pharyngitis J02.0 [facility] FR[facility] [address] [place] [address] AVE [id number], [place] [id number] Jan, [facility] [address] [place] [address] AVE [id number], [place] [id number] Jan, Anxiety associated with depression 300.4 [facility] [address] [id number], [place] [id number] Jan, BMI 40.0-44.9, adult Z68.41 ; Acute pain of right knee M25.561 ; Right foot pain M79.671 and Plantar neuroma of right foot G57.61 [facility] [address] [place] [address] AVE [id number], [place] [id number] Jan, Dental examination Z01.20 [facility] [address] [place] [address] AVE [id number], [place] [id number] Dec, Anxiety associated with depression 300.4 [facility] [address] [id number], [place] [id number] Dec, Anxiety associated with depression F41.8 ; Morbid (severe) obesity due to excess calories E66.01 and Sleep disturbance G47.9 [facility] [address] [id number] [place] [id number] Dec, Anxiety associated with depression F41.8 and Sleep disturbance G47.9 [facility] [address] [id number], [place] [id number] Dec, [facility] [address] [id number], [place] [id number] Dec, Sleep disturbance G47.9 [facility] [address] [id number], [place] [id number] Nov, [facility] [address] [id number], [place] [id number] Nov, Morbid (severe) obesity due to excess calories E66.01 ; Sleep disturbance G47.9 ; Anxiety associated with depression F41.8 ; Pain in right knee M25.561 and Other chronic pain G89.29 [facility] [address] [id number], [place] [id number] Nov, [facility] [address] [id number], [place] [id number] Nov, [facility] [address] [id number], [place] [id number] Oct, Dental examination Z01.20 [facility] [address] [id number], [place] [id number] Oct, Dental examination Z01.20 [facility] [address] [facility] [id number], [place] [address] Sep, [facility] [address] [address] [id number], [place] [id number] Sep, Morbid (severe) obesity due to excess calories E66.01 ; Dietary counseling Z71.3 and Weight gain finding R63.5 [facility] [address] [id number], [place] [id number] Aug, [facility] [address] [id number], [place] [id number] Aug, Metabolic syndrome E88.81 ; Morbid (severe) obesity due to excess calories E66.01 and Anxiety associated with depression F41.[address] [facility] [address] [id number], [place] [id number] Aug, [facility] [address] [id number], [place] [address] Aug, Eustachian tube dysfunction, right H69.81 and Right acute serous otitis media, recurrence not specified H65.[address] [facility] [address] [id number], [place] [id number] Jun, Sciatica, left side M54.[address] [facility] [address] [id number], [place] [id number] Jun, [facility] [address] [id number], [place] [id number] Apr, [facility] [address] [id number], [place] [id number] Apr, [facility] [address] [id number], [place] [id number] Apr, Acute non-recurrent maxillary sinusitis J01.[address] [facility] [address] [id number], [place] [id number] Apr, Acute non-recurrent maxillary sinusitis J01.[address] [facility] [address] [id number], [place] [id number] Mar, Sore throat J02.9 [facility] [address] [id number], [place] [id number] Feb, Quadriceps tendonitis M76.899 [facility] [address] [id number], [place] [id number] Feb, Abscess, abdomen K65.1 and Quadriceps tendonitis M76.899 [facility] [address] [id number], [place] [id number] Dec, Inflamed skin tag L91.[address] [facility] [address] [id number], [place] [id number] Oct, Sciatica neuralgia 724.[address] [facility] [address] [id number], [place] [id number] Oct, Low back strain 847.2 [facility] [address] [id number] [place] [id number] Sep, [facility] [address] [id number], [place] [id number] Aug, Urinary tract infection 599.0 [facility] [address]00565100[place], [place] [address] Jun, [facility] [address]65100[place], [place] [address] Jun, [facility] [id number] [place] [address] Apr, [facility] [address]65100[place], [place] [address] Apr, [facility] [address]65100[place], [place] [address] Mar, [facility] [address]65100[place], [place] [address] Mar, [facility] [address]65100[place], [place] [address] Oct, [facility] [address] [facility] [id number], [place] [id number] Jun, [facility] [address] [facility] [id number], [place] [id number] May, [facility] [address] [id number][place] [id number] May, [facility] [address] [id number], [place] [id number] Mar, IMMUNIZATIONS No Known Immunizations SOCIAL HISTORY Never Assessed REASON FOR VISIT Prophy and xrays PLAN OF CARE Activity Details Follow Up Localized SRP and re-eval. JOHN Reason: VITAL SIGNS Blood pressure systolic 128 mmHg 2016-11-07 Blood pressure diastolic 70 mmHg 2016-11-07 MEDICATIONS Medication Instructions Dosage Frequency Start Date End Date Duration Status Seroquel 200 MG Orally Once a day 1 tablet at bedtime 24h Active Lexapro 20 mg Orally Once a day 1 tablets 24h Active Prilosec 40 MG Orally Once a day 1 capsule 24h Active Contrave 8-90 MG Orally Twice a day 2 tablet 12h Aug, Mar, 90 days Active RESULTS No Results PROCEDURES Procedure Date Ordered Result Body Site INTRAORL - CMPL SERIES CODE 86052 Nov 07, 2016 Full mouth debridement Nov 07, 2016 INSTRUCTIONS MEDICATIONS ADMINISTERED No Known Medications [...] foot arch surgeris X4 Hospitalization History appendicitis- [facility] Hospitalization History ER visit for shoulder pain 03/2016 Hospitalization History [facility] ER for lower back pain 01/2017
--- NOTE | 2018-05-29 09:28 | Progress Note-Pre Operative ---
Pre-Operative Progress Note H&P Reviewed The H&P was reviewed, patient examined and no changes noted. 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
--- NOTE | 2018-05-29 09:29 | Progress Note-Post Operative ---
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
[2018-05-29] MEDS ORDERED: oxyCODONE/APAP 5/325MG (PERCOCET 5) TABLET PO PRN (09:45)
[2018-05-29] MEDS ORDERED: RT-ALBUTEROL SULF 2.5 MG/3 ML PRE-MIX VIAL ONE (10:11)
[2018-05-29] MEDS ORDERED: NALOXONE 0.4 MG/ML 1 ML (NARCAN) VIAL ONE (10:14)
[2018-05-29] MEDS ORDERED: KETOROLAC 30 MG/ML VIAL ONE (10:38)
[2018-05-29] MEDS ORDERED: KETOROLAC 30 MG/ML VIAL IVP ONE (11:00)
[2018-05-29 11:02] VITALS: BP 119/82
[2018-05-29] MEDS ORDERED: oxyCODONE/APAP 5/325MG (PERCOCET 5) TABLET ONE (11:06)
[2018-05-29 11:32] VITALS: BP 111/63
--- NOTE | 2018-05-29 11:40 | OPERATIVE REPORT ---
DATE OF SERVICE: 05/29/2018 PREOPERATIVE DIAGNOSES: 1. Left knee medial meniscus tear. 2. Left knee chondromalacia of the patella. POSTOPERATIVE DIAGNOSES: 1. Left knee medial meniscus tear. 2. Left knee chondromalacia of the patella. 3. Left knee chondromalacia of the medial femoral condyle. 4. Left knee chondromalacia of the medial tibial plateau. 5. Left knee chondromalacia of the lateral tibial plateau. PROCEDURES: 1. Left knee arthroscopic partial medial meniscectomy. 2. Left knee arthroscopic chondroplasty of the medial femoral condyle. 3. Left knee arthroscopic chondroplasty of the medial tibial plateau. 4. Left knee arthroscopic chondroplasty of the lateral tibial plateau. 5. Left knee arthroscopic chondroplasty of the patella. SURGEON: Yohannes Yun MD. BURRITO MAKER: Brendan Madison, who assisted throughout the procedure and closed the incisions. ANESTHESIA: General endotracheal by Kiah Sloan CRNA. TOURNIQUET: Not applicable. ESTIMATED BLOOD LOSS: Minimal. DRAINS: None. SPECIMENS: None. POSTOPERATIVE PLANS: Routine knee arthroscopy protocol. The patient was transferred to the recovery room awake and in stable condition. STATEMENT OF MEDICAL NECESSITY: The patient is a 47-year-old female with complaints of left anterior and medial knee pain, catching, locking and swelling. She was tender along her medial joint line. She had pain medially with Ruth Ann's. She also had patellofemoral crepitus and pain with patellar loading due to functional impairment and failure to improve with conservative measures. The patient elected to proceed with surgical intervention. Examination under anesthesia revealed range of motion of 0/0/135 with a negative Hayden, negative anterior and posterior drawer. No varus valgus laxity and negative pivot shift. Arthroscopic findings, the patella demonstrated grade II chondral flap superiorly in a 10 x 10 area. The trochlea demonstrated no gross chondral abnormalities. The medial and lateral gutters were clear. The ACL and PCL were intact. The lateral compartment demonstrated grade II chondral flap in the central portion of the tibial plateau in an 8 x 8 area. No meniscal pathology was noted. The medial compartment demonstrated a tear of the body of the medial meniscus involving approximately 20% of the body. In addition, there were grade II chondral flaps adjacently on the femoral condyle and tibial plateau in a 10 x 10 area. DESCRIPTION OF PROCEDURE: After risks and benefits of the procedure were discussed and questions were answered, an informed consent was signed and placed on the chart. The operative site was confirmed in the preoperative holding area initialed by the surgeon. The patient was then transported to the operating room. After adequate levels of general endotracheal anesthetic were obtained, a timeout was called confirming the operative site. Examination under anesthesia was performed with the above findings noted. The left lower extremity was prepped and draped in the usual sterile fashion. The knee joint was injected with 60 mL of fluid. A standard inferolateral portal was placed with the arthroscope under direct visualization and inferior medial portal was created. The menisci and cruciates were carefully probed with the above findings noted. The unstable chondral flaps of the patella were debrided with shaver back to a stable edge. The scope was redirected into the lateral compartment and the unstable chondral flaps and lateral tibial plateau were debrided with shaver back to a stable edge. Scope was then redirected into the medial compartment. The unstable chondral flaps on the medial femoral condyle and medial tibial plateau were debrided with a shaver back to a stable edge and the body of the medial meniscus was debrided with the shaver removing approximately 20% of the body. This was carefully probed with no further tearing or instability noted. The knee was copiously irrigated and portal sites were closed with 4-0 nylon in a standard fashion. Knee was injected with Duramorph. Portal sites were infiltrated with plain Marcaine. A soft dressing was applied and the patient was transferred to the recovery room awake and in stable condition. Job ID: [id number] DocumentID: [id number] Dictated Date: 05/29/2018 10:11:32 Production Support Manager Date: 05/29/2018 11:39:51 Dictated By: YOHANNES YUN MD
[2018-05-29] MEDS ORDERED: OXYC-471 PO (11:59)
[2018-05-29 12:05] VITALS: BP 127/75
--- NOTE | 2018-05-29 14:03 | Physical Therapy Ortho Eval ---
PT Orthopedic Evaluation Type of Surgery Knee Scope left side, WBAT Prior Level of Function Current Living Status: Spouse Locomotion (Upon Admit): Independent Subjective Subjective Patient in bed pre tx, agrees to PT, has pain of 6/10 in left knee. Entry Into Home: Stairs With Railing Steps Into Home: 2 Steps Accessories: Railing Present Motor Control Motor Control: Motor Control WNL ROM left knee extension +5 degrees, flexion 50 degrees Strength NT Transfer Transfers (B, C, W/C) (FIM): 5 Gait Gait Assistive Device: FWW Left Lower Extremity: Left Weight Bearing Status LLE: Weight Bearing/Tolerated Gait (FIM): 2 Distance: 120' Gait Level of Assist: 5 Summary/Comments Antalgic ambulation, slightly flexed left knee. Patient also went up and down 1 step using a rolling walker with CGA. Treatment Rendered Treatment: Therapeutic Exercises, Gait Train, Step Train Exercise Instruction: Quad Sets, Heel Slides, Ankle Pumps Assessment/Goals Goal Time Frame: 1 Visit Understands HEP: Yes Safe Ambulation: Yes Plan Treatment Plan: Discharge PT/Family Agrees to Plan: Yes Time Time In: 1150 Time Out: 1205 Total Billed Treatment Time: 15 Billed Treatment Time 1 visit KYLEE Santiago' ZOYA BOATENG PT May 29, 2018 14:03
--- NOTE | 2018-05-29 14:38 | Anesthesia-General Post-Op ---
General Patient Condition Mental Status/LOC: Same as Preop Cardiovascular: Satisfactory Nausea/Vomiting: Absent Respiratory: Satisfactory Pain: Controlled Complications: Absent Post Op Complications Complications None Follow Up Care/Instructions Patient Instructions None needed. Anesthesia/Patient Condition Patient Condition Patient had some respiratory issues initially after surgery and was given Narcan after the case. Her SaO2 was 100% in PACU and she was doing well, no complaints, stable vital signs, no apparent adverse anesthesia problems prior to her discharge to home. RENAN MARCELO DO May 29, 2018 14:38
== END 2018-05-29 12:25 | disposition home or self-care (01) ==
LOC: SDC 07:38
PROVIDERS: ATTEND Orthopaedic Surgery
DX: M23.232 Derangement of other medial meniscus due to old tear or injury, left knee (principal); M22.42 Chondromalacia patellae, left knee; F41.9 Anxiety disorder, unspecified; F32.9 Major depressive disorder, single episode, unspecified; K21.9 Gastro-esophageal reflux disease without esophagitis; E11.9 Type 2 diabetes mellitus without complications; G43.909 Migraine, unspecified, not intractable, without status migrainosus; G47.00 Insomnia, unspecified; F17.210 Nicotine dependence, cigarettes, uncomplicated; Z87.442 Personal history of urinary calculi; Z79.899 Other long term (current) drug therapy; Z79.84 Long term (current) use of oral hypoglycemic drugs
CPT/HCPCS: 82962; 84703; 87081